=== PATIENT | female | born 1960 | race African-American/Black ===

== ENCOUNTER → 2023-05-24 | Outpatient (CLI) | payer BC ==
[~2023-05-24] VITALS: Ht 172.7 cm; Wt 82.6 kg
[~2023-05-24] MED LIST: ADENOSINE 69 MG in GIVE UN-DILUTED 0 ML IV ONE; ADENOSINE 90 MG/30 ML INJ IV ONE
== END | disposition home or self-care (01) ==
LOC: Rad HDHVI 13:53
PROVIDERS: ATTEND Internal Medicine Cardiovascular Disease
DX: I08.3 Combined rheumatic disorders of mitral, aortic and tricuspid valves (principal); I10 Essential (primary) hypertension; R42 Dizziness and giddiness; I25.2 Old myocardial infarction; I25.10 Atherosclerotic heart disease of native coronary artery without angina pectoris; F17.210 Nicotine dependence, cigarettes, uncomplicated
CPT/HCPCS: 93306; J0153

== ENCOUNTER → 2023-07-26 | Outpatient (CLI) | payer BC ==
[~2023-07-26] MED LIST changes: -ADENOSINE 69 MG in GIVE UN-DILUTED 0 ML IV ONE; -ADENOSINE 90 MG/30 ML INJ IV ONE; +ASPI-543 PO; +DILT1TAB8 PO; +TICA90TA PO; +TRIA75TA55 PO
[2023-07-26 10:00] VITALS: BP 139/65; PULSE 80; RESP 16; O2SAT 92
[2023-07-26 10:20] VITALS: BP 136/65; PULSE 75; RESP 16; O2SAT 92
== END | disposition home or self-care (01) ==
LOC: CHF HDHVI 09:57
PROVIDERS: ATTEND Internal Medicine Cardiovascular Disease
DX: Z01.818 Encounter for other preprocedural examination (principal); R94.31 Abnormal electrocardiogram [ECG] [EKG]; I10 Essential (primary) hypertension; I25.2 Old myocardial infarction; R42 Dizziness and giddiness
CPT/HCPCS: 93005; G0463

== ENCOUNTER 2023-07-28 06:40 | Day surgery (SDC) | payer BC ==
[2023-07-26 12:28] LABS: Basophils # (auto) 0 10 ^3/uL (0-0.2); Basophils % (auto) 0.6 % (0.0-2.0); Eosinophils # (auto) 0.2 10 ^3/uL (0-0.8); Eosinophils % (auto) 3.6 % (0.0-7.0); Hematocrit 40.7 % (36.0-46.0); Hemoglobin 13.8 g/dL (12.2-16.2); Lymphocytes % (auto) 34.3 % (10.0-50.0); Mean Corpuscular Hgb Conc. 33.8 g/dL (32.0-36.0); Mean Corpuscular Volume 100.7 fL (80.0-100.0); Monocytes # (auto) 0.6 10 ^3/uL (0-1.3); Neutrophils % (auto) 51.5 % (37.0-80.0); Red Blood Cells 4.05 10^6/uL (4.0-5.20); Red Cell Distribution Width 11.9 % (11.8-14.3); White Blood Cell 5.8 10^3/uL (4.4-10.8)
[2023-07-26 12:54] LABS: Chloride 100 mmol/L (98-107); Potassium 3.5 mmol/L (3.5-5.1); Sodium 137 mmol/L (136-145)
[2023-07-26 12:55] LABS: Anion Gap 7 (5-15); Calcium 9.5 mg/dL (8.5-10.1); Carbon Dioxide 30 mmol/L (20-30)
[2023-07-26 13:00] LABS: BUN/Creatinine Ratio 11.3 (10.0-20.0); Blood Urea Nitrogen 8 mg/dL (9-23); Glucose 94 mg/dL (74-106)
[2023-07-26 13:07] LABS: INR 0.96 (0.9-1.15); Partial Thromboplastin Time 25.6 SEC (24.5-34.5); Prothrombin Time 10.3 sec (9.3-11.8)
[~2023-07-28] VITALS: Ht 172.7 cm; Wt 82.6 kg
[~2023-07-28 06:40] MED LIST changes: -TICA90TA PO
[2023-07-28] MEDS ORDERED: IODIXANOL 320MG/ML 100ML BTL IV ONE (08:18)
[2023-07-28] MEDS ORDERED: LIDOCAINE 2%HCL (LOCAL ANESTH.) INJ 20ML MDV ONE ×2 (08:18→08:58)
[2023-07-28] MEDS ORDERED: SODIUM CHL 0.9% 50 ML ONE ×2 (08:21→10:02)
[2023-07-28] MEDS ORDERED: ANGIOMAX 250 MG VIAL IV ONE ×2 (08:21→10:02)
[2023-07-28] MEDS ORDERED: fentaNYL CITRATE 100 MCG/2 ML VL ONE (08:21)
[2023-07-28] MEDS ORDERED: MIDAZOLAM HCL 2MG/2ML 2ml VIAL (1mg/ml) ONE ×2 (08:21→10:00)
[2023-07-28] MEDS ORDERED: IOHEXOL 350 MG/ML 100ML IJ ONE ×2 (09:09→09:16)
[2023-07-28] MEDS ORDERED: ATROPINE SULF 1 MG/10ml SYR ONE (09:15)
[2023-07-28] MEDS ORDERED: TICAGRELOR 90 MG TAB ONE (10:10)
[2023-07-28] MEDS ORDERED: TICA90TA PO (11:49)
[2023-07-28] MEDS ORDERED: ONDANSETRON HCL 4 MG/2 ML VIAL ONE (12:36)
[2023-07-28] MEDS ORDERED: ONDANSETRON HCL 4 MG/2 ML VIAL IV ONE (12:45)
== END 2023-07-28 12:53 | disposition home or self-care (01) ==
LOC: CATH 06:40
PROVIDERS: ATTEND Internal Medicine Cardiovascular Disease
DX: R94.39 Abnormal result of other cardiovascular function study (principal); I25.10 Atherosclerotic heart disease of native coronary artery without angina pectoris; I10 Essential (primary) hypertension; I25.2 Old myocardial infarction; F17.210 Nicotine dependence, cigarettes, uncomplicated; Z79.82 Long term (current) use of aspirin; Z79.899 Other long term (current) drug therapy
CPT/HCPCS: 36415; 80048; 85025; 85610; 85730; 93458; 93571; C1724; C1725; C1769; C1874; C1887; C1894; C9600; J0583; J1644; J2250; J2405; J3010; J7030; Q9967; 99152; 99153

== ENCOUNTER 2023-08-08 15:15 | Inpatient (IN) | payer BC ==
[~2023-08-08] VITALS: Ht 172.7 cm; Wt 83.0 kg
[~2023-08-08 15:15] MED LIST changes: +TICA90TA PO
[2023-08-08 21:50] VITALS: BP 99/51; PULSE 70; PULSE 74; RESP 16; RESP 18; TEMP 97.7; O2SAT 97
[2023-08-08] MEDS ORDERED: MORPHINE SULFATE INJ 2 MG/ml SYRG IV PRN (23:30)
[2023-08-08] MEDS ORDERED: NITROGLYCERIN 0.4 MG SL TAB SL PRN (23:30)
[2023-08-09] VITALS (9 sets, daily range): BP systolic 90–100; BP diastolic 34–59; PULSE 70–86; RESP 16–18; TEMP 97.9–98.6; O2SAT 93–100
[2023-08-09] MEDS: SODIUM CHLORIDE 0.9% 1,000 ML IV SCH ×2 (00:13→19:41)
[2023-08-09 00:15] LABS: Basophils # (auto) 0 10 ^3/uL (0-0.2); Basophils % (auto) 0.6 % (0.0-2.0); Eosinophils # (auto) 0.1 10 ^3/uL (0-0.8); Eosinophils % (auto) 1.8 % (0.0-7.0); Hematocrit 30.1 % (36.0-46.0); Hemoglobin 10.3 g/dL (12.2-16.2); Lymphocytes # (auto) 2.2 10 ^3/uL (0.4-5.4); Lymphocytes % (auto) 28.6 % (10.0-50.0); Mean Corpuscular Hemoglobin 32.6 pg (28.0-32.0); Mean Corpuscular Hgb Conc. 34.3 g/dL (32.0-36.0); Mean Corpuscular Volume 94.9 fL (80.0-100.0); Monocytes # (auto) 0.6 10 ^3/uL (0-1.3); Monocytes % (auto) 7.7 % (0.0-12.0); Neutrophils # (auto) 4.8 10 ^3/uL (1.6-8.6); Neutrophils % (auto) 61.3 % (37.0-80.0); Red Blood Cells 3.17 10^6/uL (4.0-5.20); Red Cell Distribution Width 15.3 % (11.8-14.3); White Blood Cell 7.8 10^3/uL (4.4-10.8)
[2023-08-09 00:16] LABS: Chloride 108 mmol/L (98-107); Potassium 3.2 mmol/L (3.5-5.1); Sodium 137 mmol/L (136-145)
[2023-08-09 00:17] LABS: Anion Gap 3 (5-15); Calcium 8.1 mg/dL (8.7-10.4); Carbon Dioxide 26 mmol/L (20-30)
[2023-08-09 00:22] LABS: BUN/Creatinine Ratio 14.8 (10.0-20.0); Blood Urea Nitrogen 8 mg/dL (9-23); Glucose 97 mg/dL (74-106)
[2023-08-09 00:26] LABS: INR 1.05 (0.9-1.15); Partial Thromboplastin Time 23.2 SEC (24.5-34.5)
[2023-08-09 05:45] LABS: Basophils # (auto) 0 10 ^3/uL (0-0.2); Basophils % (auto) 0.6 % (0.0-2.0); Eosinophils # (auto) 0.2 10 ^3/uL (0-0.8); Eosinophils % (auto) 2.3 % (0.0-7.0); Hematocrit 31.7 % (36.0-46.0); Hemoglobin 10.7 g/dL (12.2-16.2); Lymphocytes # (auto) 2.2 10 ^3/uL (0.4-5.4); Lymphocytes % (auto) 30.4 % (10.0-50.0); Mean Corpuscular Hemoglobin 32.5 pg (28.0-32.0); Mean Corpuscular Hgb Conc. 33.7 g/dL (32.0-36.0); Mean Corpuscular Volume 96.4 fL (80.0-100.0); Monocytes # (auto) 0.6 10 ^3/uL (0-1.3); Monocytes % (auto) 8.7 % (0.0-12.0); Neutrophils # (auto) 4.2 10 ^3/uL (1.6-8.6); Nucleated Red Blood Cells % 0.2 %; Red Blood Cells 3.29 10^6/uL (4.0-5.20); White Blood Cell 7.3 10^3/uL (4.4-10.8)
[2023-08-09 06:00] LABS: INR 1.04 (0.9-1.15); Partial Thromboplastin Time 23.9 SEC (24.5-34.5); Prothrombin Time 10.9 sec (9.3-11.8)
[2023-08-09 06:06] LABS: Anion Gap 6 (5-15); Carbon Dioxide 26 mmol/L (20-30); Chloride 107 mmol/L (98-107); Potassium 3.3 mmol/L (3.5-5.1); Sodium 139 mmol/L (136-145)
[2023-08-09 06:07] LABS: Calcium 8.4 mg/dL (8.5-10.1)
[2023-08-09 06:12] LABS: BUN/Creatinine Ratio 9.3 (10.0-20.0); Blood Urea Nitrogen 5 mg/dL (9-23); Glucose 85 mg/dL (74-106)
[2023-08-09] MEDS: PANTOPRAZOLE 40 MG/10 ML VIAL INJ IV SCH (10:31)
[2023-08-09] MEDS: diphenhdrAMINE HCL 25 MG CAP PO PRN (19:28)
[2023-08-10] VITALS (9 sets, daily range): BP systolic 78–107; BP diastolic 41–56; PULSE 68–91; RESP 18–20; TEMP 98–98.2; O2SAT 95–96
[2023-08-10] MEDS: POTASSIUM CHL 20MEQ/100ML 100 ML IV SCH ×2 (00:06→01:57)
[2023-08-10] MEDS: diphenhdrAMINE HCL 25 MG CAP PO PRN (04:31)
[2023-08-10 07:51] LABS: Calcium 8.4 mg/dL (8.5-10.1); Chloride 110 mmol/L (98-107); Potassium 3.9 mmol/L (3.5-5.1); Sodium 140 mmol/L (136-145)
[2023-08-10 07:52] LABS: Anion Gap 5 (5-15); Carbon Dioxide 25 mmol/L (20-30)
[2023-08-10 07:56] LABS: Basophils # (auto) 0 10 ^3/uL (0-0.2); Basophils % (auto) 0.3 % (0.0-2.0); Eosinophils # (auto) 0.2 10 ^3/uL (0-0.8); Eosinophils % (auto) 2.4 % (0.0-7.0); Hematocrit 30.5 % (36.0-46.0); Hemoglobin 10.4 g/dL (12.2-16.2); Lymphocytes # (auto) 1.9 10 ^3/uL (0.4-5.4); Lymphocytes % (auto) 26.4 % (10.0-50.0); Mean Corpuscular Hemoglobin 32.8 pg (28.0-32.0); Mean Corpuscular Hgb Conc. 34.2 g/dL (32.0-36.0); Mean Corpuscular Volume 95.8 fL (80.0-100.0); Monocytes # (auto) 0.4 10 ^3/uL (0-1.3); Monocytes % (auto) 6.3 % (0.0-12.0); Neutrophils # (auto) 4.5 10 ^3/uL (1.6-8.6); Neutrophils % (auto) 64.6 % (37.0-80.0); Nucleated Red Blood Cells % 0.1 %; Red Blood Cells 3.19 10^6/uL (4.0-5.20); Red Cell Distribution Width 14.7 % (11.8-14.3)
[2023-08-10 07:57] LABS: BUN/Creatinine Ratio 11.5 (10.0-20.0); Blood Urea Nitrogen 6 mg/dL (9-23); Glucose 127 mg/dL (74-106)
[2023-08-10] MEDS: PANTOPRAZOLE 40 MG/10 ML VIAL INJ IV SCH (10:00)
[2023-08-10] MEDS: SODIUM CHLORIDE 0.9% 1,000 ML IV SCH (15:30)
[2023-08-10] MEDS: ENOXAPARIN SOD 60 MG/0.6 ML SYRINGE SC SCH (18:31)
[2023-08-11] MEDS: ENOXAPARIN SOD 60 MG/0.6 ML SYRINGE SC SCH ×2 (02:24→16:02)
[2023-08-11 05:21] VITALS: BP 108/51; PULSE 67; RESP 18; TEMP 98; O2SAT 93
[2023-08-11 08:00] VITALS: BP 110/63; PULSE 72; PULSE 76; RESP 18; TEMP 98.7; O2SAT 99
[2023-08-11] MEDS ORDERED: GOLYTELY 4L KIT PO ONE (08:45)
[2023-08-11 09:00] VITALS: BP 110/63; PULSE 72; RESP 18; TEMP 98.7; O2SAT 99
[2023-08-11] MEDS: PANTOPRAZOLE 40 MG/10 ML VIAL INJ IV SCH (09:32)
[2023-08-11] MEDS: SODIUM CHLORIDE 0.9% 1,000 ML IV SCH (11:30)
[2023-08-11 13:00] VITALS: BP 116/45; PULSE 65; RESP 18; TEMP 98.2; O2SAT 100
[2023-08-11] MEDS: diphenhdrAMINE HCL 25 MG CAP PO PRN (18:05)
[2023-08-11 20:00] VITALS: BP 94/41; PULSE 60; PULSE 67; PULSE 71; RESP 18; TEMP 98
[2023-08-11 22:00] VITALS: BP 94/41; PULSE 67; RESP 18; TEMP 98; O2SAT 97
[2023-08-12] VITALS (9 sets, daily range): BP systolic 103–127; BP diastolic 41–53; PULSE 56–74; RESP 17–19; TEMP 97.6–98.6; O2SAT 95–100
[2023-08-12] MEDS: ENOXAPARIN SOD 60 MG/0.6 ML SYRINGE SC SCH ×2 (02:46→14:34)
[2023-08-12] MEDS ORDERED: GOLYTELY 4L KIT PO ONE (06:00)
[2023-08-12] MEDS ORDERED: MAGNESIUM CITRATE SOLUTION 300 ML BTL PO ONE (06:00)
[2023-08-12] MEDS: SODIUM CHLORIDE 0.9% 1,000 ML IV SCH (07:30)
[2023-08-12] MEDS ORDERED: SODIUM CHLORIDE LOCK 10 ML ONE (08:26)
[2023-08-12] MEDS: PANTOPRAZOLE 40 MG/10 ML VIAL INJ IV SCH (10:00)
[2023-08-12] MEDS: fentaNYL CITRATE 100 MCG/2 ML VL ONE ×2 (10:03→10:08)
[2023-08-12] MEDS: diphenhdrAMINE HCL 50 MG/1 ML VL ONE ×2 (10:03→10:04)
[2023-08-12] MEDS: MIDAZOLAM HCL 5 MG/ML-1ML VIAL ONE ×4 (10:03→10:17)
[2023-08-13] MEDS: ENOXAPARIN SOD 60 MG/0.6 ML SYRINGE SC SCH ×2 (02:15→13:36)
[2023-08-13] MEDS: SODIUM CHLORIDE 0.9% 1,000 ML IV SCH (03:30)
[2023-08-13 05:00] VITALS: BP 112/46; PULSE 74; RESP 20; TEMP 98.9; O2SAT 93
[2023-08-13 06:44] LABS: Basophils # (auto) 0 10 ^3/uL (0-0.2); Basophils % (auto) 0.6 % (0.0-2.0); Eosinophils # (auto) 0.1 10 ^3/uL (0-0.8); Eosinophils % (auto) 2.5 % (0.0-7.0); Hematocrit 29.2 % (36.0-46.0); Hemoglobin 9.9 g/dL (12.2-16.2); Lymphocytes # (auto) 1.4 10 ^3/uL (0.4-5.4); Lymphocytes % (auto) 27.8 % (10.0-50.0); Mean Corpuscular Hemoglobin 32.8 pg (28.0-32.0); Mean Corpuscular Hgb Conc. 33.9 g/dL (32.0-36.0); Mean Corpuscular Volume 96.7 fL (80.0-100.0); Monocytes # (auto) 0.4 10 ^3/uL (0-1.3); Monocytes % (auto) 7.8 % (0.0-12.0); Neutrophils % (auto) 61.3 % (37.0-80.0); Nucleated Red Blood Cells % 0.1 %; Red Blood Cells 3.02 10^6/uL (4.0-5.20); Red Cell Distribution Width 14.5 % (11.8-14.3); White Blood Cell 4.9 10^3/uL (4.4-10.8)
[2023-08-13 06:50] LABS: Alanine Aminotransferase 17 U/L (7-40); Alkaline Phosphatase 42 U/L (46-116); Anion Gap 5 (5-15); Calcium 8.3 mg/dL (8.7-10.4); Carbon Dioxide 26 mmol/L (20-30); Chloride 111 mmol/L (98-107); Glucose 82 mg/dL (74-106); Potassium 3.6 mmol/L (3.5-5.1); Sodium 142 mmol/L (136-145)
[2023-08-13 06:51] LABS: Albumin 3.1 g/dL (3.2-4.8); Aspartate Aminotransferase 15 U/L (13-40); Bilirubin, Total 0.4 mg/dL (0.2-1.0); Total Protein 5.4 g/dL (5.7-8.2)
[2023-08-13 06:57] LABS: BUN/Creatinine Ratio 9.8 (10.0-20.0); Blood Urea Nitrogen < 5 mg/dL (9-23)
[2023-08-13 08:00] VITALS: PULSE 73
[2023-08-13 09:00] VITALS: BP 99/39; PULSE 89; RESP 14; TEMP 97.7; O2SAT 94
[2023-08-13] MEDS: PANTOPRAZOLE 40 MG/10 ML VIAL INJ IV SCH (09:46)
[2023-08-13 13:00] VITALS: BP 111/67; PULSE 67; RESP 16; TEMP 98.3; O2SAT 97
[2023-08-13 15:08] VITALS: BP 111/67; PULSE 67; RESP 16; TEMP 98.3; O2SAT 97
[2023-08-13 17:00] VITALS: BP 100/43; PULSE 82; RESP 18; TEMP 98.3; O2SAT 96
== END 2023-08-13 17:33 | disposition home or self-care (01) | DRG 378 ==
LOC: UNDOADMIN 20:38 → TELE-WESTW 20:38
PROVIDERS: ADMIT Internal Medicine Cardiovascular Disease; ATTEND Internal Medicine Cardiovascular Disease
PROC: 0DBN8ZZ Excision of Sigmoid Colon, Via Natural or Artificial Opening Endoscopic (ICD-10-PCS; 2023-08-12)
PROC: 0DBC8ZX Excision of Ileocecal Valve, Via Natural or Artificial Opening Endoscopic, Diagnostic (ICD-10-PCS; principal; 2023-08-12 09:50)
DX: K92.2 Gastrointestinal hemorrhage, unspecified (principal); K55.9 Vascular disorder of intestine, unspecified; J44.9 Chronic obstructive pulmonary disease, unspecified; D64.9 Anemia, unspecified; I25.10 Atherosclerotic heart disease of native coronary artery without angina pectoris; E87.6 Hypokalemia; I10 Essential (primary) hypertension; F17.210 Nicotine dependence, cigarettes, uncomplicated; K63.5 Polyp of colon; I25.2 Old myocardial infarction; Z95.5 Presence of coronary angioplasty implant and graft; Z79.02 Long term (current) use of antithrombotics/antiplatelets
CPT/HCPCS: 36415; 45380; 80048; 80053; 85025; 85610; 85730; 86850; 86900; 86901; 86920; C9113; G0378; J2250; J3480

== ENCOUNTER → 2024-01-25 | Outpatient (CLI) | payer BC | END | disposition home or self-care (01) | LOC: Rad HDHVI 13:00 | PROVIDERS: ATTEND Internal Medicine Cardiovascular Disease | DX: I25.110 Atherosclerotic heart disease of native coronary artery with unstable angina pectoris (principal); I35.1 Nonrheumatic aortic (valve) insufficiency; I25.2 Old myocardial infarction; I42.0 Dilated cardiomyopathy; I10 Essential (primary) hypertension; J44.9 Chronic obstructive pulmonary disease, unspecified; E78.00 Pure hypercholesterolemia, unspecified | CPT/HCPCS: 78452; 93017; 96374; A9500 ==

== ENCOUNTER → 2024-04-16 | Outpatient (CLI) | payer BC ==
[~2024-04-16] MED LIST changes: +CLOP75TA70 PO
[2024-04-16 12:00] VITALS: BP 135/64; PULSE 81; RESP 20; O2SAT 94
[2024-04-16 12:10] VITALS: BP 130/66; PULSE 81; RESP 20; O2SAT 94
== END | disposition home or self-care (01) ==
LOC: Rad HDHVI 11:47
PROVIDERS: ATTEND Internal Medicine Cardiovascular Disease
DX: Z01.818 Encounter for other preprocedural examination (principal)
CPT/HCPCS: 71046; 93005; G0463

== ENCOUNTER 2024-04-19 06:36 | Day surgery (SDC) | payer BC ==
[2024-04-16 14:23] LABS: Chloride 100 mmol/L (98-107); Potassium 3.6 mmol/L (3.5-5.1); Sodium 137 mmol/L (136-145)
[2024-04-16 14:24] LABS: Anion Gap 7 (5-15); Carbon Dioxide 30 mmol/L (20-30)
[2024-04-16 14:25] LABS: Calcium 9.9 mg/dL (8.7-10.4)
[2024-04-16 14:29] LABS: BUN/Creatinine Ratio 11.3 (10.0-20.0); Basophils # (auto) 0 10 ^3/uL (0-0.2); Basophils % (auto) 0.4 % (0.0-2.0); Blood Urea Nitrogen 8 mg/dL (9-23); Eosinophils # (auto) 0.1 10 ^3/uL (0-0.8); Eosinophils % (auto) 1.1 % (0.0-7.0); Glucose 91 mg/dL (74-106); Monocytes # (auto) 0.8 10 ^3/uL (0-1.3); Neutrophils # (auto) 5.9 10 ^3/uL (1.6-8.6); White Blood Cell 8.9 10^3/uL (4.4-10.8)
[2024-04-16 14:31] LABS: Hematocrit 37.6 % (36.0-46.0); Hemoglobin 13.3 g/dL (12.2-16.2); Lymphocytes # (auto) 2.1 10 ^3/uL (0.4-5.4); Lymphocytes % (auto) 23.5 % (10.0-50.0); Mean Corpuscular Hemoglobin 35.5 pg (28.0-32.0); Mean Corpuscular Hgb Conc. 35.5 g/dL (32.0-36.0); Platelet Count (auto) 277 10^3/uL (140-450); Red Blood Cells 3.76 10^6/uL (4.0-5.20); Red Cell Distribution Width 11.9 % (11.8-14.3)
[2024-04-16 14:37] LABS: INR 1.06 (0.9-1.15); Partial Thromboplastin Time 24.8 SEC (24.5-34.5); Prothrombin Time 11.2 sec (9.3-11.8)
[2024-04-19] VITALS (7 sets, daily range): BP systolic 117–141; BP diastolic 49–64; PULSE 65–77; RESP 12–19; O2SAT 93–94
[~2024-04-19] VITALS: Ht 172.7 cm; Wt 74.8 kg
[~2024-04-19 06:36] MED LIST changes: -ASPI-543 PO; -TICA90TA PO
[2024-04-19] MEDS ORDERED: IOHEXOL 350 MG/ML 100ML IJ ONE (09:52)
[2024-04-19] MEDS ORDERED: fentaNYL CITRATE 100 MCG/2 ML VL ONE (10:02)
[2024-04-19] MEDS ORDERED: ANGIOMAX 250 MG VIAL IV ONE (10:02)
[2024-04-19] MEDS ORDERED: SODIUM CHL 0.9% 50 ML ONE (10:03)
[2024-04-19] MEDS ORDERED: LIDOCAINE 2%HCL (LOCAL ANESTH.) INJ 20ML MDV ONE (10:03)
[2024-04-19] MEDS ORDERED: MIDAZOLAM HCL 2MG/2ML 2ml VIAL (1mg/ml) ONE (10:03)
[2024-04-19] MEDS ORDERED: ATROPINE SULF 1 MG/10ml SYR ONE (10:38)
[2024-04-19] MEDS ORDERED: CLOPIDOGREL BISULFATE 75 MG TAB ONE (10:57)
== END 2024-04-19 13:08 | disposition home or self-care (01) ==
LOC: CATH 06:36
PROVIDERS: ATTEND Internal Medicine Cardiovascular Disease
DX: I25.10 Atherosclerotic heart disease of native coronary artery without angina pectoris (principal); I25.84 Coronary atherosclerosis due to calcified coronary lesion; I11.0 Hypertensive heart disease with heart failure; I50.30 Unspecified diastolic (congestive) heart failure; I10 Essential (primary) hypertension; F41.9 Anxiety disorder, unspecified; Z82.49 Family history of ischemic heart disease and other diseases of the circulatory system; Z83.511 Family history of glaucoma
CPT/HCPCS: 36415; 80048; 85025; 85610; 85730; 92920; 93458; C1725; C1760; C1769; C1887; C1894; J0583; J1644; J2250; J3010; Q9967; 99152; 99153

== ENCOUNTER 2024-08-01 14:50 | Inpatient (IN) | payer BC ==
[~2024-08-01] VITALS: Ht 172.7 cm; Wt 64.0 kg
[2024-08-01 17:30] VITALS: PULSE 69; RESP 17; O2SAT 93
[2024-08-01 17:46] VITALS: BP 116/66; PULSE 69; RESP 17; TEMP 98; O2SAT 93
[2024-08-01] MEDS: D5W/SOD CHL 0.45% 1,000 ML IV SCH (18:18)
[2024-08-01 19:59] LABS: Basophils # (auto) 0 10 ^3/uL (0-0.2); Basophils % (auto) 0.5 % (0.0-2.0); Eosinophils # (auto) 0 10 ^3/uL (0-0.8); Eosinophils % (auto) 0.7 % (0.0-7.0); Hematocrit 39.1 % (36.0-46.0); Hemoglobin 13.4 g/dL (12.2-16.2); Lymphocytes # (auto) 1.9 10 ^3/uL (0.4-5.4); Lymphocytes % (auto) 31.2 % (10.0-50.0); Mean Corpuscular Hemoglobin 34.7 pg (28.0-32.0); Mean Corpuscular Hgb Conc. 34.3 g/dL (32.0-36.0); Mean Corpuscular Volume 101.2 fL (80.0-100.0); Monocytes # (auto) 0.6 10 ^3/uL (0-1.3); Neutrophils # (auto) 3.4 10 ^3/uL (1.6-8.6); Neutrophils % (auto) 57.6 % (37.0-80.0); Nucleated Red Blood Cells % 0.2 %; Platelet Count (auto) 189 10^3/uL (140-450); Red Blood Cells 3.87 10^6/uL (4.0-5.20); Red Cell Distribution Width 11.7 % (11.8-14.3); White Blood Cell 5.9 10^3/uL (4.4-10.8)
[2024-08-01 20:26] LABS: Alanine Aminotransferase 15 U/L (7-40); Albumin 3.8 g/dL (3.2-4.8); Alkaline Phosphatase 60 U/L (46-116); Anion Gap 5 (5-15); Aspartate Aminotransferase 18 U/L (13-40); BUN/Creatinine Ratio 13.1 (10.0-20.0); Calcium 9.8 mg/dL (8.7-10.4); Carbon Dioxide 29 mmol/L (20-31); Chloride 103 mmol/L (98-107); Glucose 97 mg/dL (74-106); Sodium 137 mmol/L (136-145)
[2024-08-01 20:27] LABS: Bilirubin, Total 0.9 mg/dL (0.2-1.0)
[2024-08-01 20:28] LABS: Blood Urea Nitrogen 8 mg/dL (9-23); Potassium 3.2 mmol/L (3.5-5.1); Total Protein 6.6 g/dL (5.7-8.2)
[2024-08-01 21:00] VITALS: BP 110/52; PULSE 70; RESP 18; TEMP 98.8; O2SAT 98
[2024-08-02 01:00] VITALS: BP 108/50; PULSE 72; RESP 18; TEMP 98.8; O2SAT 98
[2024-08-02 05:00] VITALS: BP 110/56; PULSE 70; RESP 18; TEMP 98.8; O2SAT 100
[2024-08-02] MEDS: GASTROGRAFIN 30 ML SOL ONE (07:19)
[2024-08-02] MEDS: IOHEXOL 300 MG/ML 100ML BOTTLE IJ ONE (08:13)
[2024-08-02 08:40] VITALS: BP 105/42; PULSE 70; RESP 16; TEMP 98.2; O2SAT 95
[2024-08-02] MEDS: PANTOPRAZOLE 40 MG TAB PO SCH (09:55)
[2024-08-02] MEDS: dilTIAZem 120MG ER CAP PO SCH (09:55)
[2024-08-02] MEDS: TRIAMTERENE/HCTZ 37.5/25 MG CAP/TAB PO SCH (09:55)
[2024-08-02] MEDS ORDERED: PATIENTS OWN MEDICATION PO SCH (10:00)
--- NOTE | 2024-08-02 10:58 | DVH ---
Exam: CT CT ABD PELVIS W CON-ORAL IV History: r/o Small bowel obstruction TECHNIQUE: A digital therapeutic recreation specialist image was obtained. During the uneventful, intravenous administration of c ontrast material, multislice data acquisition was obtained through the abdomen and pelvis. The data s et was subsequently reconstructed into axial images. Images were reviewed on a work station using a c ombination of axial and multiplanar using a variety of window levels and settings. 100 cc of Omnipaqu e 300 contrast was injected intravenously. All CT scans at this medical facility are performed using dose modulation techniques as appropriate t o a performed exam including the following:Automated exposure control was utilized; adjustment of the MA and/or KV according to patient size; and use of iterative reconstruction technique. Radiation Dose Information: CT Dose: CTDI volume is 6 mGy. Dose-length product is 278 mGy*cm Comparison: None FINDINGS: There is mild fatty infiltration of the liver. There is a 1.0 cm left midpole renal cyst. There is no evidence of nephrolithiasis or hydronephrosis . The gallbladder, pancreas, adrenal glands, and spleen appear within normal limits. There is no gross evidence of abdominal lymphadenopathy. There is no free fluid or free air. The stomach grossly appears unremarkable. There is oral contrast in the small bowel loops and in the colon to the level of the splenic flexure. The small bowel loops appear mildly prominent in size jonah uring up to 2.6 cm. There is no obvious transition point identified. The large bowel loops are not di lated. Air intermixed with stool is seen in the distal colon. The abdominal aorta and IVC appear within normal limits. The bladder appears within normal limits the degree of distention. The uterus appears heterogeneous with calcified fibroids. There is no evidence of a pelvic mass or lymphadenopathy. There is no free fluid collection. Mild scarring versus atelectasis in the left lung base. There is no acute osseous abnormality. IMPRESSION: 1. The small bowel loops appear mildly prominent in size measuring up to 2.6 cm in diameter. There is no obvious transition point identified. There are no dilated large bowel loops. There is oral contra st seen in the small bowel loops in the colon to the level of the splenic flexure. 2. Mild fatty infiltration of the liver. 3. Fibroid uterus. HS:Y
--- NOTE | 2024-08-02 12:13 | DVHPN2 ---
Progress Note - Dictate Date Seen: Aug 02, 2024 Medical Necessity Reason Pt with a Central, PICC or Fol: No Subjective PT WITH ACCELERATED WEIGHT LOSS DYSPHAGIA MELENA S/P COLONOSCOPY REPOARTED TO BE NEGATIVE HX OF TOBACCO USE CACHEXIA COPD HTN S/P CT ABD AND PELVIS WITH CONTRAST 1. The small bowel loops appear mildly prominent in size measuring up to 2.6 cm in diameter. There is no obvious transition point identified. There are no dilated large bowel loops. There is oral contrast seen in the small bowel loops in the colon to the level of the splenic flexure. 2. Mild fatty infiltration of the liver. 3. Fibroid uterus. LAB CONSISTENT WITH HYPOKALEMIA WILL PROCEDURE WITH CT OF CHEST WITH CONTRAST vital signs Vital Sign Date Time Temp Pulse Resp B/P (MAP) Pulse Ox O2 Delivery O2 Flow Rate FiO2 08/02/24 09:55 70 105/42 08/02/24 08:40 98.2 16 95 98.2 08/01/24 20:00 Room Air* 0 21 Total Intake and Output 08/01/24 08/01/24 08/02/24 15:00 23:00 07:00 Intake Total 400 ml Balance 400 ml medications Current Medications Medications Dose Ordered Sig/Minal Route Start Time Stop Time Status Last Admin Dose Admin Dextrose/Sodium Chloride 1,000 ml @ 50 mls/hr Q20H IV 08/01/24 18:00 08/01/24 18:18 50 MLS/HR Triamterene/HCTZ 1 cap DAILY PO 08/02/24 10:00 08/02/24 09:55 1 CAP Diltiazem HCl 240 mg DAILY PO 08/02/24 10:00 08/02/24 09:55 240 MG Pantoprazole Sodium 40 mg DAILY PO 08/02/24 10:00 08/02/24 09:55 40 MG laboratory and microbiology Laboratory Tests 08/01/24 19:39 Test 08/01/24 19:39 Range/Units Serum Glucose 97 74-106 mg/dL Problem List ACCELERATED WEIGHT LOSS DYSPHAGIA MELENA S/P COLONOSCOPY REPOARTED TO BE NEGATIVE HX OF TOBACCO USE CACHEXIA COPD HTN S/P CT ABD AND PELVIS WITH CONTRAST 1. The small bowel loops appear mildly prominent in size measuring up to 2.6 cm in diameter. There is no obvious transition point identified. There are no dilated large bowel loops. There is oral contrast seen in the small bowel loops in the colon to the level of the splenic flexure. 2. Mild fatty infiltration of the liver. 3. Fibroid uterus. LAB CONSISTENT WITH HYPOKALEMIA WILL PROCEDURE WITH CT OF CHEST WITH CONTRAST Assessment/Plan CT OF CHEST IV FLUID GI CONSULT START NUTRITION Plan discussed with: Patient OFELIA OCHOA MD Aug 02, 2024 12:13
--- NOTE | 2024-08-02 12:20 | DVHHP2 ---
Admitting Diagnosis: DYSPHAGIA CACHEXIA IN ABILUITY TO EAT History of Present Illness ACCELERATED WEIGHT LOSS DYSPHAGIA MELENA S/P COLONOSCOPY REPORTED TO BE NEGATIVE HX OF TOBACCO USE CACHEXIA COPD HTN HX OF LGI BLEED ISCHEMIC COLITIS HX OF CAD S/P PTCA STENT RCA PTCA OF PDA S/P CT ABD AND PELVIS WITH CONTRAST 1. The small bowel loops appear mildly prominent in size measuring up to 2.6 cm in diameter. There is no obvious transition point identified. There are no dilated large bowel loops. There is oral contrast seen in the small bowel loops in the colon to the level of the splenic flexure. 2. Mild fatty infiltration of the liver. 3. Fibroid uterus. LAB CONSISTENT WITH HYPOKALEMIA WILL PROCEDURE WITH CT OF CHEST WITH CONTRAST PERTINENT MEDICAL HISTORY: Significant for: * Hypertension. * History of myocardial infarction in 2005. * History of angiogram with angioplasty in 2005 and in 2023. * History of tobacco use, smokes approximately 2-4 cigarettes a day. * No diabetes. * No history of renal failure. * No history of heart failure. * She has hyperdynamic contractility by echocardiography and diastolic dysfunction. CURRENT MEDICATIONS: Include diltiazem, Dyazide diuretic, and Plavix. More than likely I would need to titrate up on the calcium channel vijaya because of the hyperdynamic contractility that is contributing to the patient's chest pain and contributing to the patient's hypertension with diastolic dysfunction. HX OF CAD S/P PTCA PDA 04/17 * Left ventricular function shows hyperdynamic contractility with an estimated EF of greater than 65%, diastolic dysfunction. * LVEDP of 8 mmHg. * Left ventricular systolic pressure 144. No gradient across the aortic valve. * A. Left main patent, calcified. * B. Left anterior descending artery, moderate calcification. * C. First diagonal of the LAD severe diffuse disease less than 2 mm in size. * D. Circumflex artery, moderate diffuse disease without any restrictive lesion nondominant vessel. * E. Right coronary artery, previous site of stent placement was patent with moderate diffuse disease; however, the ostium of the posterior descending artery had a 90-95% narrowing with calcification status post balloon angioplasty. Small caliber vessel, not amenable to any further intervention such as shockwave or even a stent placement. Stenting the posterior descending artery would have compromised the posterior marginal branch, which is a larger caliber vessel. Past Medical History FAMILY HISTORY: Negative. SOCIAL HISTORY: As described above. REVIEW OF SYSTEMS: She denies any fever or chills. No melena or hematochezia. No hematemesis or hemoptysis. No hematuria. No history of liver disease. No history of kidney disease at this time. She has mild COPD however. No history of CVA. No seizure disorder. No history of difficulty swallowing. No GI symptomatology. Patient Family History: FH: cancer G8 MOTHER Allergies: Coded Allergies: No Known Drug Allergy (Verified Allergy, Unknown, 05/24/23) Home Meds Reported Medications Clopidogrel Bisulfate (CLOPIDOGREL) 75 Mg Tab, 75 MG PO DAILY for s/p cardiac stents, MG 04/16/24 Diltiazem HCl (Diltiazem HCl ER) 240 Mg Tab, 240 MG PO DAILY for htn 07/26/23 Triamterene & Hydrochlorothiaz (Maxzide) 1 Tab Tab, 1 TAB PO DAILY for htn 07/26/23 Current Medications Current Medications Medications (Trade) Dose Ordered Sig/Minal Route PRN Reason Start Time Stop Time Status Last Admin Dextrose/Sodium Chloride 1,000 ml @ 50 mls/hr Q20H IV 08/01/24 18:00 08/01/24 18:18 Triamterene/HCTZ (Dyazide 37.5/ 25MG Capsule) 1 cap DAILY PO 08/02/24 10:00 08/02/24 09:55 Diltiazem HCl (Cardizem ER Capsule) 240 mg DAILY PO 08/02/24 10:00 08/02/24 09:55 Patient Own Medication 1 DAILY PO 08/02/24 10:00 08/01/24 18:35 DC Pantoprazole Sodium (Protonix Tablet) 40 mg DAILY PO 08/02/24 10:00 08/02/24 09:55 Vital Signs Vital Signs Date Time Temp Pulse Resp B/P (MAP) Pulse Ox O2 Delivery O2 Flow Rate FiO2 08/02/24 09:55 70 105/42 08/02/24 08:40 98.2 16 95 98.2 08/01/24 20:00 Room Air* 0 21 Physical Exam PHYSICAL EXAMINATION: VITAL SIGNS: Blood pressure is 144/72, pulse of 78 and regular, O2 saturation 94% on room air. HEENT: Pupils are reactive. Funduscopic exam shows no AV nicking, no exudates, no papilledema. Sclerae anicteric. Extraocular muscles are intact. Tympanic membranes are negative. Oral mucosa moist. Posterior pharynx without any exudate. NECK: No JVD appreciated. Carotid pulses are 2+ symmetrical. No cervical adenopathy. No supraclavicular adenopathy. Thyroid is within normal limits. PULMONARY: Clear to auscultation. CARDIOVASCULAR: Regular rate without S3 and without S4. PMI is not displaced. ABDOMEN: Soft and nontender. Normal bowel sounds. EXTREMITIES: No edema. However, distal pulses are Doppler only. Results Labs Test 08/01/24 19:39 Range/Units White Blood Count 5.9 4.4-10.8 10^3/uL Red Blood Count 3.87 L 4.0-5.20 10^6/uL Hemoglobin 13.4 12.2-16.2 g/dL Hematocrit 39.1 36.0-46.0 % Mean Corpuscular Volume 101.2 H 80.0-100.0 fL Mean Corpuscular Hemoglobin 34.7 H 28.0-32.0 pg Mean Corpuscular Hemoglobin Concent 34.3 32.0-36.0 g/dL Red Cell Distribution Width 11.7 L 11.8-14.3 % Platelet Count 189 140-450 10^3/uL Mean Platelet Volume 7.3 6.9-10.8 fL Neutrophils (%) (Auto) 57.6 37.0-80.0 % Lymphocytes (%) (Auto) 31.2 10.0-50.0 % Monocytes (%) (Auto) 10.0 0.0-12.0 % Eosinophils (%) (Auto) 0.7 0.0-7.0 % Basophils (%) (Auto) 0.5 0.0-2.0 % Neutrophils # (Auto) 3.4 1.6-8.6 10 ^3/uL Lymphocytes # (Auto) 1.9 0.4-5.4 10 ^3/uL Monocytes # (Auto) 0.6 0-1.3 10 ^3/uL Eosinophils # (Auto) 0 0-0.8 10 ^3/uL Basophils # (Auto) 0 0-0.2 10 ^3/uL Nucleated Red Blood Cells 0.2 % Sodium Level 137 136-145 mmol/L Potassium Level 3.2 L 3.5-5.1 mmol/L Chloride Level 103 98-107 mmol/L Carbon Dioxide Level 29 20-31 mmol/L Anion Gap 5 5-15 Blood Urea Nitrogen 8 L 9-23 mg/dL Creatinine 0.61 0.550-1.02 mg/dL Glomerular Filtration Rate Calc 101 >90 mL/min BUN/Creatinine Ratio 13.1 10.0-20.0 Serum Glucose 97 74-106 mg/dL Calcium Level 9.8 8.7-10.4 mg/dL Total Bilirubin 0.9 0.2-1.0 mg/dL Aspartate Amino Transferase (AST) 18 13-40 U/L Alanine Aminotransferase (ALT) 15 7-40 U/L Alkaline Phosphatase 60 46-116 U/L Total Protein 6.6 5.7-8.2 g/dL Albumin 3.8 3.2-4.8 g/dL Admitting Diagnosis: ACCELERATED WEIGHT LOSS DYSPHAGIA MELENA S/P COLONOSCOPY REPORTED TO BE NEGATIVE HX OF TOBACCO USE CACHEXIA COPD HTN HX OF LGI BLEED ISCHEMIC COLITIS HX OF CAD S/P PTCA STENT RCA PTCA OF PDA S/P CT ABD AND PELVIS WITH CONTRAST 1. The small bowel loops appear mildly prominent in size measuring up to 2.6 cm in diameter. There is no obvious transition point identified. There are no dilated large bowel loops. There is oral contrast seen in the small bowel loops in the colon to the level of the splenic flexure. 2. Mild fatty infiltration of the liver. 3. Fibroid uterus. LAB CONSISTENT WITH HYPOKALEMIA WILL PROCEDURE WITH CT OF CHEST WITH CONTRAST PERTINENT MEDICAL HISTORY: Significant for: * Hypertension. * History of myocardial infarction in 2005. * History of angiogram with angioplasty in 2005 and in 2023. * History of tobacco use, smokes approximately 2-4 cigarettes a day. * No diabetes. * No history of renal failure. * No history of heart failure. * She has hyperdynamic contractility by echocardiography and diastolic dysfunction. Plan GI CONSULT FOR EGD CT OF CHEST WITH CONTRAST Plan discussed with: Patient OFELIA OCHOA MD Aug 02, 2024 12:20
[2024-08-02 12:33] VITALS: BP 124/59; PULSE 66; RESP 18; TEMP 98.7; O2SAT 97
--- NOTE | 2024-08-02 13:22 | DVHINCON2 ---
GI Consult Consult Note GI consult note Date of Consultation:08/02/2024 Chief Complaint:SBO Referring Physician:Dr Gould H&P: 63-year-old female admitted for possible small bowel obstruction Patient has history of abdominal pain after eating food, which started about one year ago Patient status post colonoscopy one year ago, within normal limits per patient Patient admits to regular bowel movements, no melena or red blood in stool Patient has nausea vomiting, occasional discomfort with swallowing. No hematemesis Patient has about 100 lb weight loss in one year No EGD in past. Patient is treated with Plavix last dosage this morning Patient positive for cigarette smoking Past Medical History: HTN, CAD Past Surgical History: PTCA Social History: + smoking, no drinking ETOH and use of illegal drugs. Family History: Noncontributory Review of Systems: Constitutional: no fever, chill, weight loss HEENT: no eye pain, no hearing loss, no oral lesion, no scleral icterus Heart: no chest pain, no chest pressure Lung: no cough, no dyspnea with exertion Abdomen: see HPI Physical exam: General: NAD, AAOX3 Chest: lung givens clear to auscultation Heart: RRR, no murmur Abdomen: non-distended, no tenderness to palpation, +BS Labs: Labs Test 08/01/24 19:39 Range/Units White Blood Count 5.9 4.4-10.8 10^3/uL Red Blood Count 3.87 L 4.0-5.20 10^6/uL Hemoglobin 13.4 12.2-16.2 g/dL Hematocrit 39.1 36.0-46.0 % Mean Corpuscular Volume 101.2 H 80.0-100.0 fL Mean Corpuscular Hemoglobin 34.7 H 28.0-32.0 pg Mean Corpuscular Hemoglobin Concent 34.3 32.0-36.0 g/dL Red Cell Distribution Width 11.7 L 11.8-14.3 % Platelet Count 189 140-450 10^3/uL Mean Platelet Volume 7.3 6.9-10.8 fL Neutrophils (%) (Auto) 57.6 37.0-80.0 % Lymphocytes (%) (Auto) 31.2 10.0-50.0 % Monocytes (%) (Auto) 10.0 0.0-12.0 % Eosinophils (%) (Auto) 0.7 0.0-7.0 % Basophils (%) (Auto) 0.5 0.0-2.0 % Neutrophils # (Auto) 3.4 1.6-8.6 10 ^3/uL Lymphocytes # (Auto) 1.9 0.4-5.4 10 ^3/uL Monocytes # (Auto) 0.6 0-1.3 10 ^3/uL Eosinophils # (Auto) 0 0-0.8 10 ^3/uL Basophils # (Auto) 0 0-0.2 10 ^3/uL Nucleated Red Blood Cells 0.2 % Sodium Level 137 136-145 mmol/L Potassium Level 3.2 L 3.5-5.1 mmol/L Chloride Level 103 98-107 mmol/L Carbon Dioxide Level 29 20-31 mmol/L Anion Gap 5 5-15 Blood Urea Nitrogen 8 L 9-23 mg/dL Creatinine 0.61 0.550-1.02 mg/dL Glomerular Filtration Rate Calc 101 >90 mL/min BUN/Creatinine Ratio 13.1 10.0-20.0 Serum Glucose 97 74-106 mg/dL Calcium Level 9.8 8.7-10.4 mg/dL Total Bilirubin 0.9 0.2-1.0 mg/dL Aspartate Amino Transferase (AST) 18 13-40 U/L Alanine Aminotransferase (ALT) 15 7-40 U/L Alkaline Phosphatase 60 46-116 U/L Total Protein 6.6 5.7-8.2 g/dL Albumin 3.8 3.2-4.8 g/dL Imaging: CT abdomen pelvis IMPRESSION: 1. The small bowel loops appear mildly prominent in size measuring up to 2.6 cm in diameter. There is no obvious transition point identified. There are no dilated large bowel loops. There is oral contrast seen in the small bowel loops in the colon to the level of the splenic flexure. 2. Mild fatty infiltration of the liver. 3. Fibroid uterus. Assessment: Nausea vomiting Dysphagia Weight loss Plan: Discussed c Dr Roselyn Olvera protonix clear liq diet NPO after clear liquid breakfast tomorrow Hold Plavix Possible plan for EGD tomorrow Discussed plan with patient and RN Thank you for this consult Date of Service: Aug 02, 2024 Billing Provider: KIRSTIE NIETO Common Visit Codes: CONSULT ONLY Consultation Codes: [id number] CONSULT <60MIN KIRSTIE NIETO Aug 02, 2024 13:22
--- NOTE | 2024-08-02 13:22 | DVH ---
Date: 08/02/2024 12:50 PM Examination: XY KUB ABDOMEN SINGLE VIEW History: SBO Comparison: None TECHNIQUE: Frontal views of the abdomen was obtained. FINDINGS: Bowel gas pattern is unremarkable. The lung bases are unremarkable. No acute osseous abnormality identified. IMPRESSION: Nonobstructive bowel gas pattern. Contrast seen within the colon.
[2024-08-02 16:27] VITALS: BP 102/47; PULSE 65; RESP 15; TEMP 98; O2SAT 97
[2024-08-02] MEDS: Ensure HIGH Protein Vanilla 8oz Bottle PO SCH (18:00)
[2024-08-02 21:00] VITALS: BP 110/56; PULSE 68; RESP 18; TEMP 98.8; O2SAT 98
[2024-08-03] VITALS (7 sets, daily range): BP systolic 106–118; BP diastolic 57–73; PULSE 60–82; RESP 14–19; TEMP 97.8–98.3; O2SAT 95–100
[2024-08-03] MEDS ORDERED: SODIUM CHLORIDE LOCK 10 ML ONE (08:32)
[2024-08-03 09:02] LABS: % Iron Saturation 22.8 % (15-50)
[2024-08-03] MEDS: LIDOCAINE VISCOUS 2% 15ML UD ONE (09:06)
[2024-08-03] MEDS: fentaNYL CITRATE 100 MCG/2 ML VL ONE (09:09)
[2024-08-03] MEDS: MIDAZOLAM HCL 5 MG/ML-1ML VIAL ONE (09:09)
[2024-08-03] MEDS: diphenhdrAMINE HCL 50 MG/1 ML VL ONE (09:09)
--- NOTE | 2024-08-03 09:36 | DVHOP2 ---
Operative Report DATE OF OPERATION: 08/03/24 PROCEDURE: Upper Endoscopy with biopsy. PREOPERATIVE INDICATION: The patient is a 63 -year-old female undergoing endoscopy for for nausea vomiting weight loss abdominal pain POSTOPERATIVE DIAGNOSES: 1. Mild gastritis involving the antrum and body of the stomach 2. Mild gastropathy involving the proximal stomach otherwise normal examination up to the 2nd and 3rd part of the duodenum PROCEDURE PERFORMED BY: Jill Olvera GI NURSE: Morena SCOPE: Olympus videoendoscope. ASA CLASS: 2. PREOPERATIVE MEDICATIONS: Versed 5 mg, Fentanyl 100 mcg, Benadryl 50 mg I administered moderate sedation throughout this _8_ minutes procedure. An independent trained observer pushed medications at my direction, and monitored the patient's level of consciousness and physiological status throughout. PROCEDURE IN DETAIL: After obtaining an informed consent, the patient was placed on left lateral decubitus position. The patient was then sedated with the above medications. A bite block was placed between her teeth. The endoscope was then passed through the oropharynx, into the esophagus, and through the stomach and pylorus up to the second and third part of the duodenum. The endoscope was then withdrawn. The 2nd and 3rd part of the duodenal and the duodenal bulb were normal. Duodenal biopsies were obtained There was good bile drainage. The pre-pyloric area and antrum showed mild jaelyn ritis. On retroflexion the patient had mild gastropathy of the proximal stomach. Gastric biopsies were obtained. The endoscope was then withdrawn into the distal esophagus where she had a slightly irregular squamocolumnar junction but no significant esophagitis and no hiatal hernia .The remaining distal and proximal esophagus and oropharynx were unremarkable. The patient tolerated the procedure well without difficulty. COMPLICATIONS : None SPECIMENS: Duodenal biopsies Gastric biopsies DISPOSITION: Transfer back to the floor Stable PLAN: 1. Await for biopsy result 2. Will place pt on Protonix 40 mg p.o. daily 3. Carafate 1 g p.o. twice a day 4. Resume full liquid diet advance as tolerated 5. Outpatient follow up with me in 4-6 weeks to review results and discuss further management JILL OLVERA MD Aug 03, 2024 09:36
--- NOTE | 2024-08-03 15:03 | DVHPN2 ---
Progress Note - Dictate Date Seen: Aug 03, 2024 Medical Necessity Reason Pt with a Central, PICC or Fol: No Subjective PT WITH ACCELERATED WEIGHT LOSS DYSPHAGIA MELENA S/P COLONOSCOPY REPOARTED TO BE NEGATIVE HX OF TOBACCO USE CACHEXIA COPD HTN S/P CT ABD AND PELVIS WITH CONTRAST 1. The small bowel loops appear mildly prominent in size measuring up to 2.6 cm in diameter. There is no obvious transition point identified. There are no dilated large bowel loops. There is oral contrast seen in the small bowel loops in the colon to the level of the splenic flexure. 2. Mild fatty infiltration of the liver. 3. Fibroid uterus. LAB CONSISTENT WITH HYPOKALEMIA WILL PROCEDURE WITH CT OF CHEST WITH CONTRAST vital signs Vital Sign Date Time Temp Pulse Resp B/P (MAP) Pulse Ox O2 Delivery O2 Flow Rate FiO2 08/03/24 13:00 98.3 60 14 118/73 (88) 96 98.3 08/03/24 09:21 Nasal Cannula 3.0 08/03/24 09:21 100 Total Intake and Output 08/02/24 08/02/24 08/03/24 15:00 23:00 07:00 Intake Total 300 ml 300 ml Balance 300 ml 300 ml medications Current Medications Medications Dose Ordered Sig/Minal Route Start Time Stop Time Status Last Admin Dose Admin Dextrose/Sodium Chloride 1,000 ml @ 50 mls/hr Q20H IV 08/01/24 18:00 08/03/24 10:02 50 MLS/HR Triamterene/HCTZ 1 cap DAILY PO 08/02/24 10:00 08/03/24 10:03 1 CAP Diltiazem HCl 240 mg DAILY PO 08/02/24 10:00 08/03/24 10:03 240 MG Pantoprazole Sodium 40 mg DAILY PO 08/02/24 10:00 08/03/24 10:03 40 MG Enteral Nutritional Formula 240 ml TIDWM PO 08/02/24 18:00 08/03/24 12:00 240 ML Sucralfate 1 gm BID@0600,2200 GT 08/03/24 22:00 laboratory and microbiology Laboratory Tests 08/01/24 19:39 Test 08/01/24 19:39 Range/Units Serum Glucose 97 74-106 mg/dL Problem List ACCELERATED WEIGHT LOSS DYSPHAGIA MELENA S/P COLONOSCOPY REPOARTED TO BE NEGATIVE HX OF TOBACCO USE CACHEXIA COPD HTN S/P CT ABD AND PELVIS WITH CONTRAST 1. The small bowel loops appear mildly prominent in size measuring up to 2.6 cm in diameter. There is no obvious transition point identified. There are no dilated large bowel loops. There is oral contrast seen in the small bowel loops in the colon to the level of the splenic flexure. 2. Mild fatty infiltration of the liver. 3. Fibroid uterus. LAB CONSISTENT WITH HYPOKALEMIA WILL PROCEDURE WITH CT OF CHEST WITH CONTRAST Assessment/Plan CT OF CHEST IV FLUID GI CONSULT START NUTRITION EGD NEGATIVE FOR MALIGNANCY GASTROPARESIS Plan discussed with: Patient Critical Care Time(min): 35 OFELIA OCHOA MD Aug 03, 2024 15:03
--- NOTE | 2024-08-03 15:05 | DVHDS2 ---
Discharge Summary Date of Admission Aug 01, 2024 at 15:55 Date of Discharge: Aug 03, 2024 Admitting Diagnosis CACHEXIA DYSPHAGIA Labs/Diagnostic Data: Laboratory Results Test 08/03/24 08:13 08/01/24 19:39 Iron Level 70 ug/dL (50-170) Total Iron Binding Capacity 307 ug/dL (250-425) Percent Iron Saturation 22.8 % (15-50) Vitamin B12 Level 869 pg/mL (211-911) White Blood Count 5.9 10^3/uL (4.4-10.8) Red Blood Count 3.87 10^6/uL (4.0-5.20) Hemoglobin 13.4 g/dL (12.2-16.2) Hematocrit 39.1 % (36.0-46.0) Mean Corpuscular Volume 101.2 fL (80.0-100.0) Mean Corpuscular Hemoglobin 34.7 pg (28.0-32.0) Mean Corpuscular Hemoglobin Concent 34.3 g/dL (32.0-36.0) Red Cell Distribution Width 11.7 % (11.8-14.3) Platelet Count 189 10^3/uL (140-450) Mean Platelet Volume 7.3 fL (6.9-10.8) Neutrophils (%) (Auto) 57.6 % (37.0-80.0) Lymphocytes (%) (Auto) 31.2 % (10.0-50.0) Monocytes (%) (Auto) 10.0 % (0.0-12.0) Eosinophils (%) (Auto) 0.7 % (0.0-7.0) Basophils (%) (Auto) 0.5 % (0.0-2.0) Neutrophils # (Auto) 3.4 10 ^3/uL (1.6-8.6) Lymphocytes # (Auto) 1.9 10 ^3/uL (0.4-5.4) Monocytes # (Auto) 0.6 10 ^3/uL (0-1.3) Eosinophils # (Auto) 0 10 ^3/uL (0-0.8) Basophils # (Auto) 0 10 ^3/uL (0-0.2) Nucleated Red Blood Cells 0.2 % Sodium Level 137 mmol/L (136-145) Potassium Level 3.2 mmol/L (3.5-5.1) Chloride Level 103 mmol/L (98-107) Carbon Dioxide Level 29 mmol/L (20-31) Anion Gap 5 (5-15) Blood Urea Nitrogen 8 mg/dL (9-23) Creatinine 0.61 mg/dL (0.550-1.02) Glomerular Filtration Rate Calc 101 mL/min (>90) BUN/Creatinine Ratio 13.1 (10.0-20.0) Serum Glucose 97 mg/dL (74-106) Calcium Level 9.8 mg/dL (8.7-10.4) Total Bilirubin 0.9 mg/dL (0.2-1.0) Aspartate Amino Transferase (AST) 18 U/L (13-40) Alanine Aminotransferase (ALT) 15 U/L (7-40) Alkaline Phosphatase 60 U/L (46-116) Total Protein 6.6 g/dL (5.7-8.2) Albumin 3.8 g/dL (3.2-4.8) Other Laboratory Tests 08/01/24 19:39 Brief Hx & Hospital Course: ACCELERATED WEIGHT LOSS DYSPHAGIA MELENA S/P COLONOSCOPY REPOARTED TO BE NEGATIVE HX OF TOBACCO USE CACHEXIA COPD HTN S/P CT ABD AND PELVIS WITH CONTRAST 1. The small bowel loops appear mildly prominent in size measuring up to 2.6 cm in diameter. There is no obvious transition point identified. There are no dilated large bowel loops. There is oral contrast seen in the small bowel loops in the colon to the level of the splenic flexure. 2. Mild fatty infiltration of the liver. 3. Fibroid uterus. LAB CONSISTENT WITH HYPOKALEMIA WILL PROCEDURE WITH CT OF CHEST WITH CONTRAST Assessment/Plan CT OF CHEST IV FLUID GI CONSULT START NUTRITION EGD NEGATIVE FOR MALIGNANCY GASTROPARESIS Consults/Reason for consult GI Operations or Procedures EGD Condition at Discharge: Guarded Final Diagnosis/Problems List GASTROPARESIS GASTRITIS SEVERE CACHEXIA COPD HTN Discharge Disposition: Home Discharge Instruct/Medications Diet: Cardiac 2g Na,low cholest Follow Up/Referral: 1 WEEK Discharge Statement: "Patient was advised to return to the ER or call 911 if any headaches, dizziness, shortness of breath, chest pain, abdominal pain, bleeding, fevers, or worsening of medical condition. Patient was counseled about treatment plan, medications, possible side effects, patientverbalized understanding. All questions were answered to the best of my ability. This discharge took greater then 30 minutes in planning, reviewing documentation, counseling the patient, and discussing with other team members." ASSESSMENT ASSESSMENT Assessment OFELIA OCHOA MD Aug 03, 2024 15:05
[2024-08-03] MEDS ORDERED: SUCRALFATE 1 GM/10 ML ORAL SUSP GT SCH (22:00)
== END 2024-08-03 16:20 | disposition home or self-care (01) | DRG 378 ==
LOC: WEST WING 15:55
PROVIDERS: ADMIT Internal Medicine Cardiovascular Disease; ATTEND Internal Medicine Cardiovascular Disease
PROC: 0DB68ZX Excision of Stomach, Via Natural or Artificial Opening Endoscopic, Diagnostic (ICD-10-PCS; 2024-08-03)
PROC: 0DB98ZX Excision of Duodenum, Via Natural or Artificial Opening Endoscopic, Diagnostic (ICD-10-PCS; principal; 2024-08-03 08:58)
DX: K29.71 Gastritis, unspecified, with bleeding (principal); R64 Cachexia; R13.10 Dysphagia, unspecified; I10 Essential (primary) hypertension; J44.9 Chronic obstructive pulmonary disease, unspecified; I25.10 Atherosclerotic heart disease of native coronary artery without angina pectoris; K31.84 Gastroparesis; Z98.61 Coronary angioplasty status; I25.2 Old myocardial infarction; Z79.899 Other long term (current) drug therapy; Z68.21 Body mass index [BMI] 21.0-21.9, adult
CPT/HCPCS: 36415; 43239; 74018; 74177; 80053; 82607; 83540; 83550; 85025; G0378; J2250

== ENCOUNTER 2024-11-07 11:35 | Inpatient (IN) | payer BC ==
[~2024-11-07] VITALS: Ht 170.2 cm; Wt 56.0 kg
--- NOTE | 2024-11-07 11:59 | ED.PDOC ---
HPI Comments 64-year-old female who comes in with chest pain. The patient was stating that the chest pain is substernal in nature. There is some mild shortness for breath and she states that the chest pain increases with respiration. The chest pain is nonradiating and associated with some nausea. At this time the patient states that the pain is an 8/10. There has been no fever or chills. She states that the pain is sharp in nature. She has had an OR in the past and states that the chest pain is not similar to her OR in the past. Chief Complaint: Chest Pain Time Seen by MD: 11:43 Reviewed Notes: Nurses Notes, Medications, Allergies (No allergies to medications) Allergies: Coded Allergies: No Known Drug Allergy (Verified Allergy, Unknown, 05/24/23) Home Meds Reported Medications Clopidogrel Bisulfate (CLOPIDOGREL) 75 Mg Tab, 75 MG PO DAILY for s/p cardiac stents, MG 04/16/24 Diltiazem HCl (Diltiazem HCl ER) 240 Mg Tab, 240 MG PO DAILY for htn 07/26/23 Triamterene & Hydrochlorothiaz (Maxzide) 1 Tab Tab, 1 TAB PO DAILY for htn 07/26/23 Information Source: Patient Mode of Arrival: Ambulatory Severity: Moderate Timing: Hours Duration: Since onset Prehospital treatment: None Location: Substernal Radiation: No Radiation Quality: Sharp Onset: At Rest Cardiac Risk Factors: Smoker, Family History, HTN PE Risk Factors: None History of: Similar pain in past, OR Modifying Factors: Breathing, Movement Associated Signs and Symptoms: SOB, N/V (Nausea but no vomiting) Past Medical History PAST MEDICAL HISTORY: HTN, OR, PUD Surgical History: Surgical History (Other): Cataract surgery VAMP LINER History: No Pertinent VAMP LINER History Family History Family History: Family hx of heart annemarie Social History Smoker: Cigarettes Alcohol: Occasionally Drugs: Denies Drug Use Lives In: Home Constitutional: reports: weakness; denies: chills, diaphoresis, fatigue, fever, malaise, sweats, others EENTM: denies: blurred vision, double vision, ear bleeding, ear discharge, ear drainage, ear pain, ear ringing, eye pain, eye redness, hearing loss, mouth pain, mouth swelling, nasal discharge, nose bleeding, nose congestion, nose pain , photophobia, tearing, throat pain, throat swelling, voice changes, others Respiratory: reports: shortness of breath; denies: cough, hemoptysis, orthopnea, SOB at rest, SOB with excertion, stridor, wheezing, others Cardiovascular: reports: chest pain; denies: dizzy spells, diaphoresis, Dyspnea on exertion, edema, irregular heart beat, left arm pain, lightheadedness, palpitations, PND, syncope, others Gastrointestinal: reports: nausea; denies: abdomen distended, abdominal pain, blood streaked bowels, constipated, diarrhea, dysphagia, difficulty swallowing, hematemesis, melena, poor appetite, poor fluid intake, rectal bleeding, rectal pain, vomiting, others Genitourinary: denies: abnormal vagina bleeding, burning, dyspareunia, dysuria, flank pain, frequency, hematuria, incontinence, pain, , vagina discharge, urgency, others Neurological: denies: dizziness, fainting, headache, left sided numbness, left sided weakness, numbness, paresthesia, pre-existing deficit, right sided numbness, right sided weakness, seizure, speech problems, tingling, tremors, weakness, others Musculoskeletal: denies: back pain, gout, joint pain, joint swelling, muscle pain, muscle stiffness, neck pain, others Integumetry: denies: bruises, change in color, change in hair/nails, dryness, laceration, lesions, lumps, rash, wounds, others Allergic/Immunocompromised: denies: Difficulty Healing, Frequent Infections, Hives, Itching, others Hematologic/Lymphatic: denies: anemia, blood clots, easy bleeding, easy bruising, swollen glands, others Endocrine: denies: excessive hunger, excessive sweating, excessive thirst, excessive urination, flushing, intolerance to cold, intolerance to heat, unexplained weight gain, unexplained weight loss, others Psychiatric: denies: anxiety, bipolar disorder, depression, hopeless, panic disorder, schizophrenia, sleepless, suicidal, others Physical Exam General Appearance: Mild Distress, Thin HEENT: Normal ENT Inspection, Pharynx Normal, TMs Normal Neck: Full Range of Motion, Non-Tender, Normal, Normal Inspection Respiratory: Chest Non-Tender, Lungs Clear, No Accessory Muscle Use, No Respiratory Distress, Normal Breath Sounds Cardiovascular: No Edema, No JVD, No Murmur, No Gallop, Normal Peripheral Pulses, Regular Rate/Rhythm Breast Exam: Deferred Gastrointestinal: No Organomegaly, Non Tender, No Pulsatile Mass, Normal Bowel Sounds, Soft Genitalia: Deferred Pelvic: Deferred Rectal: Deferred Extremities: No calf tenderness, Normal capillary refill, Normal inspection, Normal range of motion, Non-tender, No pedal edema Musculoskeletal : Apperance: Normal Neurologic: Alert, coating supervisor II-XII nml as Tested, No Motor Deficits, Normal Affect, Normal Mood, No Sensory Deficits Cerebellar Function: Normal Reflexes: Normal Skin: Dry, Normal Color, Warm Lymphatic: No Adenopathy EKG EKG : Pulse Rate (adult): 99 [place]: Normal Cardiac Rhythm: NSR Block: None ST: Nonsp Was a procedure done? Was a procedure done?: No CP Differential Dx Differential Diagnosis: Angina, OR, Pulmonary Embolus Differential Diagnosis: CHF Differential Diagnosis: Pericarditis X-Ray, Labs, Meds, VS Vital Signs Date Time Temp Pulse Resp B/P (MAP) Pulse Ox O2 Delivery O2 Flow Rate FiO2 11/07/24 13:04 98.4 100 20 99/63 (75) 95 98.4 11/07/24 12:33 103 11/07/24 11:59 99 11/07/24 11:54 99 11/07/24 11:47 98.5 94 24 112/50 (70) 98 98.5 Lab Test 11/07/24 13:03 11/07/24 12:02 Range/Units Troponin I High Sensitivity 12 11 </=34 ng/L White Blood Count 6.2 4.4-10.8 10^3/uL Red Blood Count 4.25 4.0-5.20 10^6/uL Hemoglobin 14.8 12.2-16.2 g/dL Hematocrit 43.8 36.0-46.0 % Mean Corpuscular Volume 103.1 H 80.0-100.0 fL Mean Corpuscular Hemoglobin 34.8 H 28.0-32.0 pg Mean Corpuscular Hemoglobin Concent 33.7 32.0-36.0 g/dL Red Cell Distribution Width 13.9 11.8-14.3 % Platelet Count 398 140-450 10^3/uL Mean Platelet Volume 6.5 L 6.9-10.8 fL Neutrophils (%) (Auto) 61.3 37.0-80.0 % Lymphocytes (%) (Auto) 29.4 10.0-50.0 % Monocytes (%) (Auto) 8.3 0.0-12.0 % Eosinophils (%) (Auto) 0.2 0.0-7.0 % Basophils (%) (Auto) 0.8 0.0-2.0 % Neutrophils # (Auto) 3.8 1.6-8.6 10 ^3/uL Lymphocytes # (Auto) 1.8 0.4-5.4 10 ^3/uL Monocytes # (Auto) 0.5 0-1.3 10 ^3/uL Eosinophils # (Auto) 0 0-0.8 10 ^3/uL Basophils # (Auto) 0.1 0-0.2 10 ^3/uL Nucleated Red Blood Cells 0.2 % D-Dimer, Quantitative 3.28 H 0.0-0.49 mg/L FEU Sodium Level 135 L 136-145 mmol/L Potassium Level 3.0 L 3.5-5.1 mmol/L Chloride Level 93 L 98-107 mmol/L Carbon Dioxide Level 35 H 20-31 mmol/L Anion Gap 7 5-15 Blood Urea Nitrogen 5 L 9-23 mg/dL Creatinine 0.64 0.550-1.02 mg/dL Glomerular Filtration Rate Calc 99 >90 mL/min BUN/Creatinine Ratio 7.8 L 10.0-20.0 Serum Glucose 94 74-106 mg/dL Calcium Level 10.3 8.7-10.4 mg/dL B-Type Natriuretic Peptide 47.23 0-100 pg/mL Current Medications Medications (Trade) Dose Ordered Sig/Minal Route Start Time Stop Time Status Last Admin Aspirin 162 mg ONCE ONCE PO 11/07/24 12:00 11/07/24 12:01 DC 11/07/24 13:29 IV Hep-Lock was established. The patient was given aspirin here in the emergency department's The patient was given aspirin here in the emergency department's The patient's CBC and chemistry panel are within normal limits The D-dimer is elevated at 3.28 The patient's potassium is also decreased at 3.0 in the chloride is 93 The troponin level x2 is negative At this time the patient was being admitted to Dr. Gould this is the patient's primary care doctor so he was seen the patient was this time Chest x-ray is negative Images Reviewed?: Images reviewed and evaluated by me Time of 1ST Reevaluation: 11:59 Reevaluation 1ST: Unchanged Patient Education/Counseling: Diagnosis, Treatment, Prognosis Family Education/Counseling: No Family Present Departure 1 Departure Time of Disposition: 16:28 Impression: Primary Impression: Acute chest pain Additional Impressions: Unexplained weight loss Hypokalemia Disposition: 09 ADMITTED INPATIENT Admit to: Tele Condition: Fair Critical Care Note Critical Care Time?: Yes (35 min-critical care time only) Stability Stability form required: Yes Unstable for transfer: Telemetry monitoring (Telemetry monitoring required), ED Physician Assesment (Clinical assesment) Heart Score Heart Score: Heart Score Response (Comments) Value History Moderate Suspicious 1 EKG Repolarization Disturb 1 Age 45-64 1 Risk Factors >3 or Hx ASHD 2 Troponin Normal limit 0 Total 5 DE TORREZ MD Nov 07, 2024 11:59
[2024-11-07 12:11] LABS: Basophils # (auto) 0.1 10 ^3/uL (0-0.2); Basophils % (auto) 0.8 % (0.0-2.0); Eosinophils # (auto) 0 10 ^3/uL (0-0.8); Eosinophils % (auto) 0.2 % (0.0-7.0); Hematocrit 43.8 % (36.0-46.0); Hemoglobin 14.8 g/dL (12.2-16.2); Lymphocytes # (auto) 1.8 10 ^3/uL (0.4-5.4); Lymphocytes % (auto) 29.4 % (10.0-50.0); Mean Corpuscular Hemoglobin 34.8 pg (28.0-32.0); Mean Corpuscular Hgb Conc. 33.7 g/dL (32.0-36.0); Mean Corpuscular Volume 103.1 fL (80.0-100.0); Monocytes # (auto) 0.5 10 ^3/uL (0-1.3); Monocytes % (auto) 8.3 % (0.0-12.0); Neutrophils # (auto) 3.8 10 ^3/uL (1.6-8.6); Neutrophils % (auto) 61.3 % (37.0-80.0); Nucleated Red Blood Cells % 0.2 %; Platelet Count (auto) 398 10^3/uL (140-450); Red Blood Cells 4.25 10^6/uL (4.0-5.20); Red Cell Distribution Width 13.9 % (11.8-14.3); White Blood Cell 6.2 10^3/uL (4.4-10.8)
[2024-11-07 12:20] LABS: Anion Gap 7 (5-15); Calcium 10.3 mg/dL (8.7-10.4)
[2024-11-07 12:25] LABS: BUN/Creatinine Ratio 7.8 (10.0-20.0); Glucose 94 mg/dL (74-106)
[2024-11-07 12:26] LABS: Blood Urea Nitrogen 5 mg/dL (9-23); Carbon Dioxide 35 mmol/L (20-31); Chloride 93 mmol/L (98-107); Sodium 135 mmol/L (136-145)
[2024-11-07] MEDS ORDERED: NITROGLYCERIN 0.4 MG SL TAB SL PRN (13:15)
[2024-11-07] MEDS ORDERED: TPN PER PHARMACY 0 ML IV SCH (13:15)
--- NOTE | 2024-11-07 13:17 | DVHHP2 ---
Admitting Diagnosis: CHEST PAIN/ CACHEXIA History of Present Illness ACCELERATED WEIGHT LOSS DYSPHAGIA MELENA S/P COLONOSCOPY REPORTED TO BE NEGATIVE HX OF TOBACCO USE CACHEXIA COPD HTN HX OF LGI BLEED ISCHEMIC COLITIS HX OF CAD S/P PTCA STENT RCA PTCA OF PDA S/P CT ABD AND PELVIS WITH CONTRAST 1. The small bowel loops appear mildly prominent in size measuring up to 2.6 cm in diameter. There is no obvious transition point identified. There are no dilated large bowel loops. There is oral contrast seen in the small bowel loops in the colon to the level of the splenic flexure. 2. Mild fatty infiltration of the liver. 3. Fibroid uterus. LAB CONSISTENT WITH HYPOKALEMIA WILL PROCEDURE WITH CT OF CHEST WITH CONTRAST PERTINENT MEDICAL HISTORY: Significant for: * Hypertension. * History of myocardial infarction in 2005. * History of angiogram with angioplasty in 2005 and in 2023. * History of tobacco use, smokes approximately 2-4 cigarettes a day. * No diabetes. * No history of renal failure. * No history of heart failure. * She has hyperdynamic contractility by echocardiography and diastolic dysfunction. CURRENT MEDICATIONS: Include diltiazem, Dyazide diuretic, and Plavix. More than likely I would need to titrate up on the calcium channel vijaya because of the hyperdynamic contractility that is contributing to the patient's chest pain and contributing to the patient's hypertension with diastolic dysfunction. Past Medical History FAMILY HISTORY: Negative. SOCIAL HISTORY: As described above. Past Surgical History PTCA STENT Family History ABOVE Social History REMOTE HX OF TOBACCO USE Patient Family History: FH: cancer G8 MOTHER Allergies: Coded Allergies: No Known Drug Allergy (Verified Allergy, Unknown, 05/24/23) Home Meds Reported Medications Clopidogrel Bisulfate (CLOPIDOGREL) 75 Mg Tab, 75 MG PO DAILY for s/p cardiac stents, MG 04/16/24 Diltiazem HCl (Diltiazem HCl ER) 240 Mg Tab, 240 MG PO DAILY for htn 07/26/23 Triamterene & Hydrochlorothiaz (Maxzide) 1 Tab Tab, 1 TAB PO DAILY for htn 07/26/23 Review of Systems REVIEW OF SYSTEMS: She denies any fever or chills. No melena or hematochezia. No hematemesis or hemoptysis. No hematuria. No history of liver disease. No history of kidney disease at this time. She has mild COPD however. No history of CVA. No seizure disorder. No history of difficulty swallowing. No GI symptomatology. Vital Signs Vital Signs Date Time Temp Pulse Resp B/P (MAP) Pulse Ox O2 Delivery O2 Flow Rate FiO2 11/07/24 13:04 98.4 100 20 99/63 (75) 95 98.4 Physical Exam VITAL SIGNS: Blood pressure is 144/72, pulse of 78 and regular, O2 saturation 94% on room air. HEENT: Pupils are reactive. Funduscopic exam shows no AV nicking, no exudates, no papilledema. Sclerae anicteric. Extraocular muscles are intact. Tympanic membranes are negative. Oral mucosa moist. Posterior pharynx without any exudate. NECK: No JVD appreciated. Carotid pulses are 2+ symmetrical. No cervical adenopathy. No supraclavicular adenopathy. Thyroid is within normal limits. PULMONARY: Clear to auscultation. CARDIOVASCULAR: Regular rate without S3 and without S4. PMI is not displaced. ABDOMEN: Soft and nontender. Normal bowel sounds. EXTREMITIES: No edema. However, distal pulses are Doppler only. Results Labs Test 11/07/24 12:02 Range/Units White Blood Count 6.2 4.4-10.8 10^3/uL Red Blood Count 4.25 4.0-5.20 10^6/uL Hemoglobin 14.8 12.2-16.2 g/dL Hematocrit 43.8 36.0-46.0 % Mean Corpuscular Volume 103.1 H 80.0-100.0 fL Mean Corpuscular Hemoglobin 34.8 H 28.0-32.0 pg Mean Corpuscular Hemoglobin Concent 33.7 32.0-36.0 g/dL Red Cell Distribution Width 13.9 11.8-14.3 % Platelet Count 398 140-450 10^3/uL Mean Platelet Volume 6.5 L 6.9-10.8 fL Neutrophils (%) (Auto) 61.3 37.0-80.0 % Lymphocytes (%) (Auto) 29.4 10.0-50.0 % Monocytes (%) (Auto) 8.3 0.0-12.0 % Eosinophils (%) (Auto) 0.2 0.0-7.0 % Basophils (%) (Auto) 0.8 0.0-2.0 % Neutrophils # (Auto) 3.8 1.6-8.6 10 ^3/uL Lymphocytes # (Auto) 1.8 0.4-5.4 10 ^3/uL Monocytes # (Auto) 0.5 0-1.3 10 ^3/uL Eosinophils # (Auto) 0 0-0.8 10 ^3/uL Basophils # (Auto) 0.1 0-0.2 10 ^3/uL Nucleated Red Blood Cells 0.2 % D-Dimer, Quantitative 3.28 H 0.0-0.49 mg/L FEU Sodium Level 135 L 136-145 mmol/L Potassium Level 3.0 L 3.5-5.1 mmol/L Chloride Level 93 L 98-107 mmol/L Carbon Dioxide Level 35 H 20-31 mmol/L Anion Gap 7 5-15 Blood Urea Nitrogen 5 L 9-23 mg/dL Creatinine 0.64 0.550-1.02 mg/dL Glomerular Filtration Rate Calc 99 >90 mL/min BUN/Creatinine Ratio 7.8 L 10.0-20.0 Serum Glucose 94 74-106 mg/dL Calcium Level 10.3 8.7-10.4 mg/dL Troponin I High Sensitivity 11 </=34 ng/L B-Type Natriuretic Peptide 47.23 0-100 pg/mL Admitting Diagnosis: ACCELERATED WEIGHT LOSS DYSPHAGIA MELENA S/P COLONOSCOPY REPORTED TO BE NEGATIVE HX OF TOBACCO USE CACHEXIA COPD HTN HX OF LGI BLEED ISCHEMIC COLITIS HX OF CAD S/P PTCA STENT RCA PTCA OF PDA S/P CT ABD AND PELVIS WITH CONTRAST 1. The small bowel loops appear mildly prominent in size measuring up to 2.6 cm in diameter. There is no obvious transition point identified. There are no dilated large bowel loops. There is oral contrast seen in the small bowel loops in the colon to the level of the splenic flexure. 2. Mild fatty infiltration of the liver. 3. Fibroid uterus. LAB CONSISTENT WITH HYPOKALEMIA WILL PROCEDURE WITH CT OF CHEST WITH CONTRAST PERTINENT MEDICAL HISTORY: Significant for: * Hypertension. * History of myocardial infarction in 2005. * History of angiogram with angioplasty in 2005 and in 2023. * History of tobacco use, smokes approximately 2-4 cigarettes a day. * No diabetes. * No history of renal failure. * No history of heart failure. * She has hyperdynamic contractility by echocardiography and diastolic dysfunction. Plan GI CONSULT FOR EGD CT OF CHEST WITH CONTRAST Plan discussed with: Patient Plan MRI OF ABD PELVIS CT WITH CONTRAST OF CHEST IV FLUID/ TPN Plan discussed with: Patient OFELIA OCHOA MD Nov 07, 2024 13:17
[2024-11-07] MEDS: ASPirin 81 mg TAB PO ONE (13:29)
[2024-11-07] MEDS: SODIUM CHLORIDE 0.9% 1,000 ML IV ONE (14:09)
[2024-11-07] MEDS ORDERED: DEXTROSE (50%) 50ML SYRG IV SCH (14:30)
[2024-11-07] MEDS: GADOTERATE MEG 10 MMOL/20ml INJ (0.5MMOL/ml) IV ONE (15:01)
--- NOTE | 2024-11-07 15:38 | DVH ---
XY CHEST TWO VIEWS ROUTINE CLINICAL HISTORY: cp COMPARISON: XY CHEST TWO VIEWS ROUTINE on DOS: 04/16/24 TECHNIQUE: Frontal and lateral view of the chest was obtained FINDINGS: Lines and Tubes: None Lungs: No focal consolidation. Pleura: No effusion. No pneumothorax. Cardiomediastinal contours: Unremarkable Bones: No acute osseous abnormality. IMPRESSION: No acute cardiopulmonary disease.
[2024-11-07 16:27] LABS: Alanine Aminotransferase 18 U/L (7-40); Albumin 4.3 g/dL (3.2-4.8); Alkaline Phosphatase 97 U/L (46-116); Anion Gap 7 (5-15); Aspartate Aminotransferase 25 U/L (13-40); BUN/Creatinine Ratio 9.8 (10.0-20.0); Bilirubin, Total 0.9 mg/dL (0.2-1.0); Calcium 10.1 mg/dL (8.7-10.4); Glucose 99 mg/dL (74-106); Magnesium 1.6 mg/dL (1.6-2.6); Phosphorus 3.5 mg/dL (2.4-5.1); Total Protein 7.8 g/dL (5.7-8.2)
[2024-11-07 16:29] LABS: Blood Urea Nitrogen 6 mg/dL (9-23); Carbon Dioxide 34 mmol/L (20-31); Chloride 94 mmol/L (98-107); Potassium 2.7 mmol/L (3.5-5.1); Sodium 135 mmol/L (136-145)
[2024-11-07 17:10] VITALS: RESP 82; O2SAT 95
--- NOTE | 2024-11-07 18:43 | DVH ---
CLINICAL HISTORY: TECHNIQUE: Utilizing a 1.5 niko scanner, MRI and MRCP of the abdomen was performed with and without gadolinium. ml of was administered intravenously. 3D reconstructed images were obtained. 3D recon structed images were created under concurrent radiologist supervision and archived on the PACS system . WID: COMPARISON: Prior CT study of July 2024 FINDINGS: In the prior CT examination patient had bronchiectasis developing centrilobular emphysema i n the lung bases possible interstitial lung disease. Heart is normal in size the esophagus is unremar kable. Gallbladder is filled with fluid in liver is heterogeneous. Patient has significant atheroscle rotic disease in the abdominal aorta proximal renal arteries and superior mesenteric artery and in th e iliacs and multiple calcified myomas in the uterus moderately large stool burden. Common bile duct dilated 5.35 mm which is within normal limits for age In the current study there is significant sludge in the gallbladder. Kidneys are unremarkable. Adrena ls are normal spleen is normal. Liver has a normal appearance there are no infiltrates or effusions i n the lung bases. Common bile duct is unchanged. Patient has a myomatous uterus there there are 4 mod erately large myomas in additional smaller myomas in the uterus. Paraspinal muscles are fatty infiltr ated which is a degenerative change which could be related to chronic back pain there is no free flui d in the pelvis there are no masses in the lung bases. Mucosa of the rectosigmoid is normal. Hips are grossly unremarkable. IMPRESSION: Anteverted myomatous uterus. There is a large amount of sludge in the gallbladder. In prior CT examination of the abdomen and pelvis chronic interstitial lung disease was appreciated i n the lung bases MRI is largely insensitive to chronic interstitial lung disease CT examination of the chest would be appropriate
[2024-11-07] MEDS: POTASSIUM CHL 20MEQ/50ML 50 ML IV SCH (18:45)
[2024-11-07] MEDS: SODIUM CHL 0.9% 100 ML IV SCH (18:45)
[2024-11-07] MEDS ORDERED: SODIUM CHL 0.9% 100 ML IV SCH (18:45)
[2024-11-07 21:43] VITALS: BP 124/56; PULSE 70; RESP 18; TEMP 97.8; O2SAT 98
[2024-11-07 21:55] VITALS: PULSE 70; RESP 18; O2SAT 98
[2024-11-07 21:59] VITALS: BP 124/56; PULSE 70; RESP 18; TEMP 97.8; O2SAT 98
[2024-11-07] MEDS: AMINO ACID INFUSION IN D10W 1,000 ML IV ONE (22:00)
[2024-11-07 22:29] VITALS: BP 124/56; PULSE 70; RESP 18; TEMP 97.8; O2SAT 98
[2024-11-07] MEDS ORDERED: SUCR1SUS5 PO (22:40)
[2024-11-08] VITALS (7 sets, daily range): BP systolic 94–115; BP diastolic 49–53; PULSE 66–92; RESP 17–20; TEMP 97.4–98.4; O2SAT 95–98
[2024-11-08] MEDS: InsuLIN REG 1unit/0.01ml Soln (100units/ml) SC SCH
[2024-11-08] MEDS: ACCU-CHEK COMFORT CURVE STRIP VI SCH
[2024-11-08] MEDS ORDERED: POTASSIUM CHL 20MEQ/50ML 50 ML IV SCH (01:30)
[2024-11-08] MEDS: POTASSIUM CHL 20MEQ/50ML 50 ML IV ONE ×2 (04:32→16:00)
[2024-11-08 06:48] LABS: Alanine Aminotransferase 13 U/L (7-40); Albumin 3.4 g/dL (3.2-4.8); Alkaline Phosphatase 74 U/L (46-116); Anion Gap 6 (5-15); Aspartate Aminotransferase 19 U/L (13-40); BUN/Creatinine Ratio 8.8 (10.0-20.0); Calcium 9.3 mg/dL (8.7-10.4); Chloride 99 mmol/L (98-107); Glucose 89 mg/dL (74-106); Phosphorus 2.8 mg/dL (2.4-5.1); Sodium 136 mmol/L (136-145); Total Protein 6.2 g/dL (5.7-8.2); Triglycerides 47 mg/dL (< 150)
[2024-11-08 06:49] LABS: Bilirubin, Total 0.9 mg/dL (0.2-1.0); Blood Urea Nitrogen 5 mg/dL (9-23); Carbon Dioxide 31 mmol/L (20-31); Magnesium 1.5 mg/dL (1.6-2.6)
[2024-11-08] MEDS: Ensure HIGH Protein Chocolate 8oz Bottle PO SCH (08:00)
--- NOTE | 2024-11-08 08:15 | DVHPN2 ---
Progress Note - Dictate Date Seen: Nov 08, 2024 Medical Necessity Reason Pt with a Central, PICC or Fol: No Subjective ACCELERATED WEIGHT LOSS DYSPHAGIA MELENA S/P COLONOSCOPY REPORTED TO BE NEGATIVE HX OF TOBACCO USE CACHEXIA COPD HTN HX OF LGI BLEED ISCHEMIC COLITIS HX OF CAD S/P PTCA STENT RCA PTCA OF PDA vital signs Vital Sign Date Time Temp Pulse Resp B/P (MAP) Pulse Ox O2 Delivery O2 Flow Rate FiO2 11/08/24 05:00 97.4 68 17 98/53 (68) 97 97.4 11/07/24 21:55 Room Air* 0 21 Total Intake and Output 11/07/24 11/07/24 11/08/24 15:00 23:00 07:00 Intake Total 50 ml 400 ml Balance 50 ml 400 ml medications Current Medications Medications Dose Ordered Sig/Minal Route Start Time Stop Time Status Last Admin Dose Admin Nitroglycerin 0.4 mg Q5MINP PRN SL 11/07/24 13:15 Morphine Sulfate 2 mg Q30M PRN IV 11/07/24 13:15 Diltiazem HCl 240 mg DAILY PO 11/08/24 10:00 Amino Acids 0 ml @ 0 mls/hr PER PHARMACY IV 11/07/24 13:15 Megestrol Acetate 400 mg DAILY PO 11/08/24 10:00 Enteral Nutritional Formula 240 ml TIDWM PO 11/07/24 18:00 Diagnostic Test (Pha) 1 strip Q6HR 11/07/24 18:00 11/08/24 08:04 1 STRIP Insulin Human Regular FOLLOW SLIDING SCALE Q6HR SC 11/07/24 18:00 Dextrose 50 ml UD IV 11/07/24 14:30 laboratory and microbiology Laboratory Tests 11/08/24 05:49 11/07/24 12:02 Test 11/08/24 05:49 Range/Units Serum Glucose 89 74-106 mg/dL Problem List ACCELERATED WEIGHT LOSS DYSPHAGIA MELENA S/P COLONOSCOPY REPORTED TO BE NEGATIVE HX OF TOBACCO USE CACHEXIA COPD HTN HX OF LGI BLEED ISCHEMIC COLITIS HX OF CAD S/P PTCA STENT RCA PTCA OF PDA Assessment/Plan MRI WITH CONTRAST GALLBLADDER SLUDGE SURGICAL CONSULT Plan discussed with: Patient OFELIA OCHOA MD Nov 08, 2024 08:15
[2024-11-08] MEDS: MEGESTROL ACET 400MG/10ML ORAL SUSP PO SCH (09:47)
[2024-11-08] MEDS: dilTIAZem 120MG ER CAP PO SCH (09:51)
--- NOTE | 2024-11-08 10:14 | ECG ---
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
--- NOTE | 2024-11-08 10:14 | ECG ---
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
--- NOTE | 2024-11-08 11:13 | DVHINCON2 ---
Date of service: Nov 08, 2024 Family History: FH: cancer G8 MOTHER Allergies: Coded Allergies: No Known Drug Allergy (Verified Allergy, Unknown, 05/24/23) Home Meds Reported Medications Sucralfate (Carafate) 1 Gm/10 Ml Argenis, 1 GM PO, ML 11/07/24 Clopidogrel Bisulfate (CLOPIDOGREL) 75 Mg Tab, 75 MG PO DAILY for s/p cardiac stents, MG 04/16/24 Diltiazem HCl (Diltiazem HCl ER) 240 Mg Tab, 240 MG PO DAILY for htn 07/26/23 Triamterene & Hydrochlorothiaz (Maxzide) 1 Tab Tab, 1 TAB PO DAILY for htn 07/26/23 Current Medications Current Medications Medications (Trade) Dose Ordered Sig/Minal Route PRN Reason Start Time Stop Time Status Last Admin Nitroglycerin (Ntrostat Sublingual) 0.4 mg Q5MINP PRN SL FOR CHEST PAIN 11/07/24 13:15 Morphine Sulfate 2 mg Q30M PRN IV FOR CHEST PAIN 11/07/24 13:15 Diltiazem HCl (Cardizem ER Capsule) 240 mg DAILY PO 11/08/24 10:00 11/08/24 09:51 Amino Acids 0 ml @ 0 mls/hr PER PHARMACY IV 11/07/24 13:15 Megestrol Acetate (Megace Oral Suspension) 400 mg DAILY PO 11/08/24 10:00 11/08/24 09:47 Enteral Nutritional Formula (Ensure High Protein) 240 ml TIDWM PO 11/07/24 18:00 11/08/24 09:49 Diagnostic Test (Pha) (Accu-Chek Comfort Curve T) 1 strip Q6HR 11/07/24 18:00 11/08/24 08:04 Insulin Human Regular (InsuLIN R) FOLLOW SLIDING SCALE Q6HR SC 11/07/24 18:00 Dextrose 50 ml UD IV 11/07/24 14:30 Potassium Chloride 50 ml @ 25 mls/hr Q2H IV 11/07/24 18:45 11/07/24 22:44 DC 11/08/24 01:19 Sodium Chloride 100 ml @ 50 mls/hr Q2H IV 11/07/24 18:45 11/07/24 18:42 DC Sodium Chloride 100 ml @ 50 mls/hr Q2H IV 11/07/24 18:45 11/07/24 22:44 DC 11/07/24 18:45 Potassium Chloride 50 ml @ 25 mls/hr Q2H IV 11/08/24 01:30 11/08/24 01:17 DC Vital Signs Vital Signs Date Time Temp Pulse Resp B/P (MAP) Pulse Ox O2 Delivery O2 Flow Rate FiO2 11/08/24 09:51 80 94/51 11/08/24 08:44 98.4 17 95 98.4 11/07/24 21:55 Room Air* 0 21 Labs/Diagnostic Data Labs Test 11/08/24 07:46 11/08/24 05:49 11/07/24 15:43 11/07/24 12:02 Range/Units POC Glucose 96 70-106 mg/dl Sodium Level 136 136-145 mmol/L Potassium Level 3.0 L 3.5-5.1 mmol/L Chloride Level 99 98-107 mmol/L Carbon Dioxide Level 31 20-31 mmol/L Anion Gap 6 5-15 Blood Urea Nitrogen 5 L 9-23 mg/dL Creatinine 0.57 0.550-1.02 mg/dL Glomerular Filtration Rate Calc 102 >90 mL/min BUN/Creatinine Ratio 8.8 L 10.0-20.0 Serum Glucose 89 74-106 mg/dL Calcium Level 9.3 8.7-10.4 mg/dL Phosphorus Level 2.8 2.4-5.1 mg/dL Magnesium Level 1.5 L 1.6-2.6 mg/dL Total Bilirubin 0.9 0.2-1.0 mg/dL Aspartate Amino Transferase (AST) 19 13-40 U/L Alanine Aminotransferase (ALT) 13 7-40 U/L Alkaline Phosphatase 74 46-116 U/L Total Protein 6.2 5.7-8.2 g/dL Albumin 3.4 3.2-4.8 g/dL Triglycerides Level 47 < 150 mg/dL Troponin I High Sensitivity 12 </=34 ng/L White Blood Count 6.2 4.4-10.8 10^3/uL Red Blood Count 4.25 4.0-5.20 10^6/uL Hemoglobin 14.8 12.2-16.2 g/dL Hematocrit 43.8 36.0-46.0 % Mean Corpuscular Volume 103.1 H 80.0-100.0 fL Mean Corpuscular Hemoglobin 34.8 H 28.0-32.0 pg Mean Corpuscular Hemoglobin Concent 33.7 32.0-36.0 g/dL Red Cell Distribution Width 13.9 11.8-14.3 % Platelet Count 398 140-450 10^3/uL Mean Platelet Volume 6.5 L 6.9-10.8 fL Neutrophils (%) (Auto) 61.3 37.0-80.0 % Lymphocytes (%) (Auto) 29.4 10.0-50.0 % Monocytes (%) (Auto) 8.3 0.0-12.0 % Eosinophils (%) (Auto) 0.2 0.0-7.0 % Basophils (%) (Auto) 0.8 0.0-2.0 % Neutrophils # (Auto) 3.8 1.6-8.6 10 ^3/uL Lymphocytes # (Auto) 1.8 0.4-5.4 10 ^3/uL Monocytes # (Auto) 0.5 0-1.3 10 ^3/uL Eosinophils # (Auto) 0 0-0.8 10 ^3/uL Basophils # (Auto) 0.1 0-0.2 10 ^3/uL Nucleated Red Blood Cells 0.2 % D-Dimer, Quantitative 3.28 H 0.0-0.49 mg/L FEU B-Type Natriuretic Peptide 47.23 0-100 pg/mL Assessment patient having post prandial abdominal pain, tender ruq of abdomen, normal liver function tests, mri shows ;large amount of sludge, she will most probably benefit from cholecystectomy, needs cardiac clearance and correct electrolyte imbalance, Plan discussed with: Patient HECTOR BALLARD MD Nov 08, 2024 11:13
[2024-11-08] MEDS ORDERED: POTASSIUM CHL 20 Meq TABLET PO ONE (14:00)
--- NOTE | 2024-11-08 14:08 | DVHPN2 ---
Progress Note Date Seen: Nov 08, 2024 Medical Necessity Reason Pt with a Central, PICC or Fol: No Subjective Patient reports: No new complaints Review of Systems: HEENT:Normal, CVS:Normal, RESPIRATORY:Normal, GI:Normal, :Normal, MSK:Normal, NEURO:Normal Objective vital signs Vital Sign Date Time Temp Pulse Resp B/P (MAP) Pulse Ox O2 Delivery O2 Flow Rate FiO2 11/08/24 12:55 97.4 92 18 115/53 (73) 98 97.4 11/08/24 08:00 Room Air* 0 21 Total Intake and Output 11/07/24 11/07/24 11/08/24 15:00 23:00 07:00 Intake Total 50 ml 400 ml Balance 50 ml 400 ml medications Current Medications Medications Dose Ordered Sig/Minal Route Start Time Stop Time Status Last Admin Dose Admin Nitroglycerin 0.4 mg Q5MINP PRN SL 11/07/24 13:15 Morphine Sulfate 2 mg Q30M PRN IV 11/07/24 13:15 Diltiazem HCl 240 mg DAILY PO 11/08/24 10:00 11/08/24 09:51 240 MG Amino Acids 0 ml @ 0 mls/hr PER PHARMACY IV 11/07/24 13:15 Megestrol Acetate 400 mg DAILY PO 11/08/24 10:00 11/08/24 09:47 400 MG Enteral Nutritional Formula 240 ml TIDWM PO 11/07/24 18:00 11/08/24 12:49 240 ML Diagnostic Test (Pha) 1 strip Q6HR 11/07/24 18:00 11/08/24 12:48 1 STRIP Insulin Human Regular FOLLOW SLIDING SCALE Q6HR SC 11/07/24 18:00 Dextrose 50 ml UD IV 11/07/24 14:30 Fat Emulsion Intravenous 50 ml/ Sodium Chloride 20 meq/Potassium Phosphate 20 meq/ Magnesium Sulfate 8 meq/ Multivitamins 10 ml/Chromium/ Copper/Manganese/ Zinc 1 ml/Amino Acids/Dextrose/ Purified Water 1,222.5455 ml @ 51 mls/hr [id number] IV 11/08/24 22:00 11/09/24 21:59 Examination: GENERAL:Normal, HEENT:Normal, NECK:Normal, LUNGS:Normal, CVS:Normal, ABDOMEN:Normal, MSK:Normal, SKIN:Normal, NEURO:Normal, :Normal laboratory and microbiology Laboratory Tests 11/08/24 05:49 11/07/24 12:02 Test 11/08/24 05:49 Range/Units Serum Glucose 89 74-106 mg/dL Problem List/Assessment/Plan Problem List/Assessment/Plan #1 wt loss ?acute mercedes: surg eval #2 htn #3 cad s/p ptca #4 copd #5 tobacco abuse: advised to quit, refused nicotine patch- time spent 11 mins #6 right leg pain: check doppler #7 elevated mcv: b12 ,tsh #8 hypokalemia: replace advance care planning- full code- time spent 19 mins Plan discussed with: Patient, Daughter My Orders My Orders Orders - ERNESTINE CENTENO MD Procedure Category Date Status Time Diltiazem Er Capsule PHA 11/09/24 Transmitted (Cardizem Er Capsul 10:00 Rt Lower Dvt US 11/08/24 Transmitted 13:58 Urinalysis LAB 11/08/24 Uncollected 13:58 Basic Metabolic Panel LAB 11/09/24 Verified 06:00 Magnesium LAB 11/09/24 Verified 05:00 Vitamin B12 LAB 11/09/24 Verified 06:00 Thyroid Stimulating LAB 11/09/24 Verified Hormone 05:00 Potassium Er Tablet PHA 11/08/24 Transmitted (Klor-Con Tablet) 14:00 Pt Request For Service PT 11/08/24 Transmitted 13:58 Date of Service: Nov 08, 2024 Billing Provider: ERNESTINE CENTENO MD Common Visit Codes: 08174-[id number] INP/OBS CARE(HIGH) Secondary Visit Codes: 67637-[id number] CHNG SMOKING >10MIN, [id number] CARE PLAN 30 MINUTES ERNESTINE CENTENO MD Nov 08, 2024 14:07
--- NOTE | 2024-11-08 14:40 | DVH ---
Ultrasound right lower extremity venous Doppler INDICATION: DVT TECHNIQUE: Duplex venous sonography was performed with real-time and flow sensitive images submitted for evaluation. FINDINGS: There is thrombus present in the right popliteal vein right trifurcation veins and right p osterior tibialis vein. These vessels are noncompressible IMPRESSION: 1. Extensive deep vein thrombosis of right lower extremity from the popliteal vein into the calf vess els 2. Nurse Tracey caring for this patient was given a verbal report
[2024-11-08] MEDS: MAGNESIUM SULFATE 1GM/100ML 100 ML IV ONE (14:42)
[2024-11-08] MEDS ORDERED: ACETAMINOPHEN 325 MG TAB PO PRN (15:00)
[2024-11-08] MEDS: SODIUM CHL 0.9% 50 ML IV ONE (15:24)
[2024-11-08] MEDS: PANTOPRAZOLE 40 MG/10 ML VIAL INJ IV ONE (15:42)
[2024-11-08] MEDS: ENOXAPARIN SOD 60 MG/0.6 ML SYRINGE SC ONE (15:42)
[2024-11-08] MEDS: HYDROcodone-ACET 5/325MG TAB PO PRN (15:43)
[2024-11-08 15:56] LABS: Urine Bacteria None Seen /hpf (None Seen)
[2024-11-08 16:06] LABS: Urine Blood Negative /uL (Negative); Urine Clarity Clear (Clear); Urine Color Light-Yellow (Yellow); Urine Protein, UAD Negative (Negative); Urine Squamous Epithelial Cell FEW /hpf (<5); Urine Urobilinogen 3 mg/dL (Negative); Urine WBC < 1 /HPF (0-5); Urine pH 7.5 (5.0-9.0)
--- NOTE | 2024-11-08 19:52 | DVHINCON2 ---
Date of service: Nov 08, 2024 Referring Physician Reason for Consultation Abdominal pain nausea GERD symptoms chest pain History of Present Illness This 64-year-old female presented to the complaints with presented to the emergency room with a complaint chest pain which was substernal had some nausea anorexia patient had GA in the past Has some epigastric pain also Ultrasound apparently showed some gallbladder sludge patient is going for possible gallbladder surgery for the nausea and other symptoms Past Medical History GA Past Surgical History History none Family History: FH: cancer G8 MOTHER Family History Noncontributory Social History Denies smoking or drink Allergies: Coded Allergies: No Known Drug Allergy (Verified Allergy, Unknown, 05/24/23) Home Meds Reported Medications Sucralfate (Carafate) 1 Gm/10 Ml Argenis, 1 GM PO, ML 11/07/24 Clopidogrel Bisulfate (CLOPIDOGREL) 75 Mg Tab, 75 MG PO DAILY for s/p cardiac stents, MG 04/16/24 Diltiazem HCl (Diltiazem HCl ER) 240 Mg Tab, 240 MG PO DAILY for htn 07/26/23 Triamterene & Hydrochlorothiaz (Maxzide) 1 Tab Tab, 1 TAB PO DAILY for htn 07/26/23 Current Medications Current Medications Medications (Trade) Dose Ordered Sig/Minal Route PRN Reason Start Time Stop Time Status Last Admin Diltiazem HCl (Cardizem ER Capsule) 240 mg DAILY PO 11/08/24 10:00 11/08/24 14:02 DC 11/08/24 09:51 Megestrol Acetate (Megace Oral Suspension) 400 mg DAILY PO 11/08/24 10:00 11/08/24 09:47 Potassium Chloride 50 ml @ 25 mls/hr Q2H IV 11/08/24 01:30 11/08/24 01:17 DC Fat Emulsion Intravenous 50 ml/ Sodium Chloride 20 meq/Potassium Phosphate 20 meq/ Magnesium Sulfate 8 meq/ Multivitamins 10 ml/Chromium/ Copper/Manganese/ Zinc 1 ml/Amino Acids/Dextrose/ Purified Water 1,222.5455 ml @ 51 mls/hr [id number] IV 11/08/24 22:00 11/09/24 21:59 Diltiazem HCl (Cardizem LA Capsule) 180 mg DAILY PO 11/09/24 10:00 Enoxaparin Sodium (Lovenox) 50 mg Q12HR SC 11/08/24 22:00 Morphine Sulfate 1 mg Q4HP PRN IV SEVERE PAIN (7-10 PAIN SCALE) 11/08/24 15:00 Acetaminophen/ Hydrocodone Bitart ([place] 5/325MG Tab) 1 tab Q6HPRN PRN PO MODERATE PAIN (4-6 PAIN SCALE) 11/08/24 15:00 11/08/24 15:43 Acetaminophen (Tylenol Tablet) 650 mg Q6HP PRN PO MILD PAIN (1-3 PAIN SCALE) 11/08/24 15:00 Pantoprazole Sodium (Protonix) 40 mg DAILY IV 11/09/24 10:00 Ondansetron HCl (Zofran) 4 mg Q6HPRN PRN IV NAUSEA / VOMITING 11/08/24 15:00 Review of Systems Unremarkable Vital Signs Vital Signs Date Time Temp Pulse Resp B/P (MAP) Pulse Ox O2 Delivery O2 Flow Rate FiO2 11/08/24 17:00 97.5 66 18 110/51 (70) 98 97.5 11/08/24 08:00 Room Air* 0 21 Physical Exam Moderately built and nourished female in no acute distress HEENT examination no pallor Lungs clear Cardiovascular normal Abdomen is soft no tenderness no rigidity no guarding Extremities no edema Labs/Diagnostic Data Labs Test 11/08/24 15:50 11/08/24 12:05 11/08/24 05:49 11/07/24 15:43 Range/Units Urine Color Light-yellow Yellow Urine Clarity Clear Clear Urine pH 7.5 5.0-9.0 Urine Specific [place] 1.010 1.001-1.035 Urine Protein Negative Negative Urine Ketones Negative Negative Urine Blood Negative Negative /uL Urine Nitrite Negative Negative Urine Bilirubin Negative Negative Urine Urobilinogen 3 H Negative mg/dL Urine Leukocyte Esterase Negative Negative /uL Urine RBC None seen 0 - 4 /hpf Urine Microscopic WBC < 1 0-5 /HPF Urine Squamous Epithelial Cells Few <5 /hpf Urine Bacteria None seen None Seen /hpf Urine Glucose Normal Normal mg/dL POC Glucose 106 70-106 mg/dl Sodium Level 136 136-145 mmol/L Potassium Level 3.0 L 3.5-5.1 mmol/L Chloride Level 99 98-107 mmol/L Carbon Dioxide Level 31 20-31 mmol/L Anion Gap 6 5-15 Blood Urea Nitrogen 5 L 9-23 mg/dL Creatinine 0.57 0.550-1.02 mg/dL Glomerular Filtration Rate Calc 102 >90 mL/min BUN/Creatinine Ratio 8.8 L 10.0-20.0 Serum Glucose 89 74-106 mg/dL Calcium Level 9.3 8.7-10.4 mg/dL Phosphorus Level 2.8 2.4-5.1 mg/dL Magnesium Level 1.5 L 1.6-2.6 mg/dL Total Bilirubin 0.9 0.2-1.0 mg/dL Aspartate Amino Transferase (AST) 19 13-40 U/L Alanine Aminotransferase (ALT) 13 7-40 U/L Alkaline Phosphatase 74 46-116 U/L Total Protein 6.2 5.7-8.2 g/dL Albumin 3.4 3.2-4.8 g/dL Triglycerides Level 47 < 150 mg/dL Troponin I High Sensitivity 12 </=34 ng/L Test 11/07/24 12:02 Range/Units White Blood Count 6.2 4.4-10.8 10^3/uL Red Blood Count 4.25 4.0-5.20 10^6/uL Hemoglobin 14.8 12.2-16.2 g/dL Hematocrit 43.8 36.0-46.0 % Mean Corpuscular Volume 103.1 H 80.0-100.0 fL Mean Corpuscular Hemoglobin 34.8 H 28.0-32.0 pg Mean Corpuscular Hemoglobin Concent 33.7 32.0-36.0 g/dL Red Cell Distribution Width 13.9 11.8-14.3 % Platelet Count 398 140-450 10^3/uL Mean Platelet Volume 6.5 L 6.9-10.8 fL Neutrophils (%) (Auto) 61.3 37.0-80.0 % Lymphocytes (%) (Auto) 29.4 10.0-50.0 % Monocytes (%) (Auto) 8.3 0.0-12.0 % Eosinophils (%) (Auto) 0.2 0.0-7.0 % Basophils (%) (Auto) 0.8 0.0-2.0 % Neutrophils # (Auto) 3.8 1.6-8.6 10 ^3/uL Lymphocytes # (Auto) 1.8 0.4-5.4 10 ^3/uL Monocytes # (Auto) 0.5 0-1.3 10 ^3/uL Eosinophils # (Auto) 0 0-0.8 10 ^3/uL Basophils # (Auto) 0.1 0-0.2 10 ^3/uL Nucleated Red Blood Cells 0.2 % D-Dimer, Quantitative 3.28 H 0.0-0.49 mg/L FEU B-Type Natriuretic Peptide 47.23 0-100 pg/mL Assessment 64-year-old with complaints of abdominal pain nausea anorexia some GERD symptoms has got some ultrasound showing some gallbladder stones. Denies hematemesis or melena had some GI workup in the past recently by Dr. Olvera in [place] which were apparently normal as per the patient but not sure as per the patient Clinical impression chest pain history of GA gallbladder sludge with possible gallbladder disease also Plan/Recommendation Patient has got for gallbladder surgery and if symptoms persist later may need further workup as necessary Thank you Dr. Boothe Plan discussed with: Patient JAMES BOOTHE MD Nov 08, 2024 19:52
[2024-11-08] MEDS: SODIUM CHLORIDE IV NR (22:00)
[2024-11-08] MEDS: [UNRECOGNIZED DRUG - OTHER] IV NR (22:00)
[2024-11-08] MEDS: POTASSIUM PHOSPHATE IV NR (22:00)
[2024-11-08] MEDS: FAT EMULSION IV NR (22:00)
[2024-11-08] MEDS: ENOXAPARIN SOD 60 MG/0.6 ML SYRINGE SC SCH (23:20)
[2024-11-09 05:00] VITALS: BP 110/53; PULSE 63; RESP 18; TEMP 98.7; O2SAT 95
[2024-11-09 08:00] VITALS: PULSE 69
[2024-11-09 08:07] LABS: Alanine Aminotransferase 14 U/L (7-40); Albumin 3.5 g/dL (3.2-4.8); Alkaline Phosphatase 69 U/L (46-116); Anion Gap 5 (5-15); Aspartate Aminotransferase 17 U/L (13-40); Calcium 9.2 mg/dL (8.7-10.4); Carbon Dioxide 30 mmol/L (20-31); Chloride 102 mmol/L (98-107); Glucose 84 mg/dL (74-106); Magnesium 1.8 mg/dL (1.6-2.6); Sodium 137 mmol/L (136-145); Total Protein 6.3 g/dL (5.7-8.2)
[2024-11-09 08:08] LABS: Bilirubin, Total 0.8 mg/dL (0.2-1.0); Blood Urea Nitrogen 6 mg/dL (9-23); Phosphorus 2.6 mg/dL (2.4-5.1); Potassium 2.9 mmol/L (3.5-5.1)
[2024-11-09 08:25] LABS: BUN/Creatinine Ratio 12.2 (10.0-20.0)
[2024-11-09 09:00] VITALS: BP 99/42; PULSE 70; RESP 15; TEMP 98.6; O2SAT 97
[2024-11-09] MEDS: dilTIAZem HCL 180MG ER CAP PO SCH (09:51)
[2024-11-09] MEDS: PANTOPRAZOLE 40 MG/10 ML VIAL INJ IV SCH (09:52)
[2024-11-09] MEDS: POTASSIUM CHL 20MEQ/50ML 50 ML IV SCH (11:15)
[2024-11-09] MEDS: SODIUM CHL 0.9% 100 ML IV SCH (11:16)
--- NOTE | 2024-11-09 13:28 | DVHPN2 ---
Progress Note Date Seen: Nov 09, 2024 Medical Necessity Reason Pt with a Central, PICC or Fol: No Objective vital signs Vital Sign Date Time Temp Pulse Resp B/P (MAP) Pulse Ox O2 Delivery O2 Flow Rate FiO2 11/09/24 09:51 70 99/42 11/09/24 09:00 98.6 15 97 98.6 11/09/24 08:00 Room Air* 0 21 Total Intake and Output 11/08/24 11/08/24 11/09/24 15:00 23:00 07:00 Intake Total 240 ml 500 ml Balance 240 ml 500 ml medications Current Medications Medications Dose Ordered Sig/Minal Route Start Time Stop Time Status Last Admin Dose Admin Nitroglycerin 0.4 mg Q5MINP PRN SL 11/07/24 13:15 Morphine Sulfate 2 mg Q30M PRN IV 11/07/24 13:15 Amino Acids 0 ml @ 0 mls/hr PER PHARMACY IV 11/07/24 13:15 Megestrol Acetate 400 mg DAILY PO 11/08/24 10:00 11/09/24 09:49 400 MG Enteral Nutritional Formula 240 ml TIDWM PO 11/07/24 18:00 11/09/24 12:00 240 ML Diagnostic Test (Pha) 1 strip Q6HR 11/07/24 18:00 11/09/24 12:00 1 STRIP Insulin Human Regular FOLLOW SLIDING SCALE Q6HR SC 11/07/24 18:00 11/08/24 23:33 2 UNITS Dextrose 50 ml UD IV 11/07/24 14:30 Fat Emulsion Intravenous 50 ml/ Sodium Chloride 20 meq/Potassium Phosphate 20 meq/ Magnesium Sulfate 8 meq/ Multivitamins 10 ml/Chromium/ Copper/Manganese/ Zinc 1 ml/Amino Acids/Dextrose/ Purified Water 1,222.5455 ml @ 51 mls/hr [id number] IV 11/08/24 22:00 11/09/24 21:59 11/08/24 22:00 51 MLS/HR Diltiazem HCl 180 mg DAILY PO 11/09/24 10:00 11/09/24 09:51 180 MG Enoxaparin Sodium 50 mg Q12HR SC 11/08/24 22:00 11/08/24 23:20 50 MG Morphine Sulfate 1 mg Q4HP PRN IV 11/08/24 15:00 Acetaminophen/ Hydrocodone Bitart 1 tab Q6HPRN PRN PO 11/08/24 15:00 11/08/24 15:43 1 TAB Acetaminophen 650 mg Q6HP PRN PO 11/08/24 15:00 Pantoprazole Sodium 40 mg DAILY IV 11/09/24 10:00 11/09/24 09:52 40 MG Ondansetron HCl 4 mg Q6HPRN PRN IV 11/08/24 15:00 Fat Emulsion Intravenous 150 ml/Sodium Phosphate 20 meq/ Potassium Chloride 40 meq/ Potassium Phosphate 22 meq/ Magnesium Sulfate 12 meq/ Multivitamins 10 ml/Chromium/ Copper/Manganese/ Zinc 1 ml/Amino Acids/Dextrose/ Purified Water 1,994 ml @ 83 mls/hr Q24H2M IV 11/09/24 22:00 11/10/24 21:59 Potassium Chloride 50 ml @ 25 mls/hr Q2H IV 11/09/24 11:00 11/09/24 16:59 11/09/24 11:15 25 MLS/HR Sodium Chloride 100 ml @ 50 mls/hr Q2H IV 11/09/24 11:00 11/09/24 16:59 11/09/24 11:16 50 MLS/HR laboratory and microbiology Laboratory Tests 11/09/24 06:50 11/07/24 12:02 Test 11/09/24 06:50 Range/Units Serum Glucose 84 74-106 mg/dL Problem List/Assessment/Plan Problem List/Assessment/Plan 11/09/24 SPOKE TO PRIMARY md WHO CLEARED THE PATIENT FOR OPERATION FROM CARDIAC POINT OF VIEW, hE AGREES WITH [PROCEEDING WITH CHOLECYSTECTOMY, OPERATION, RISKS AND COMPLICATIONS EXPLAINED TO PATIENT IN DETAIL Plan discussed with: Patient Dietary Evaluation Review Comments: 1. Current nutrition support of combined Clinimix plus TPN is providing a total 95 g Protein, 1160 kcal. supporting pt's needs at 130% pro. and 76% energy in Kcal. Pt weights 54.5 kg on bedscale this afternoon. noted a 5kg gain from yester. 2. Advance diet to regular texture as tolerated after ther gallblader surgery as medically feasible. 3. Quick smoking/tobacco use. Expected Outcomes/Goals: gradual weight gain, HECTOR BALLARD MD Nov 09, 2024 13:28
[2024-11-09 14:15] LABS: INR 1.05 (0.9-1.15); Partial Thromboplastin Time 25.3 SEC (24.5-34.5); Prothrombin Time 11.1 sec (9.3-11.8)
--- NOTE | 2024-11-09 14:35 | DVHPN2 ---
Progress Note - Dictate Date Seen: Nov 09, 2024 Medical Necessity Reason Pt with a Central, PICC or Fol: No Subjective ACCELERATED WEIGHT LOSS DYSPHAGIA MELENA S/P COLONOSCOPY REPORTED TO BE NEGATIVE HX OF TOBACCO USE CACHEXIA COPD HTN HX OF LGI BLEED ISCHEMIC COLITIS HX OF CAD S/P PTCA STENT RCA PTCA OF PDA vital signs Vital Sign Date Time Temp Pulse Resp B/P (MAP) Pulse Ox O2 Delivery O2 Flow Rate FiO2 11/09/24 09:51 70 99/42 11/09/24 09:00 98.6 15 97 98.6 11/09/24 08:00 Room Air* 0 21 Total Intake and Output 11/08/24 11/08/24 11/09/24 15:00 23:00 07:00 Intake Total 240 ml 500 ml Balance 240 ml 500 ml medications Current Medications Medications Dose Ordered Sig/Minal Route Start Time Stop Time Status Last Admin Dose Admin Nitroglycerin 0.4 mg Q5MINP PRN SL 11/07/24 13:15 Morphine Sulfate 2 mg Q30M PRN IV 11/07/24 13:15 Amino Acids 0 ml @ 0 mls/hr PER PHARMACY IV 11/07/24 13:15 Megestrol Acetate 400 mg DAILY PO 11/08/24 10:00 11/09/24 09:49 400 MG Enteral Nutritional Formula 240 ml TIDWM PO 11/07/24 18:00 11/09/24 12:00 240 ML Diagnostic Test (Pha) 1 strip Q6HR 11/07/24 18:00 11/09/24 12:00 1 STRIP Insulin Human Regular FOLLOW SLIDING SCALE Q6HR SC 11/07/24 18:00 11/08/24 23:33 2 UNITS Dextrose 50 ml UD IV 11/07/24 14:30 Fat Emulsion Intravenous 50 ml/ Sodium Chloride 20 meq/Potassium Phosphate 20 meq/ Magnesium Sulfate 8 meq/ Multivitamins 10 ml/Chromium/ Copper/Manganese/ Zinc 1 ml/Amino Acids/Dextrose/ Purified Water 1,222.5455 ml @ 51 mls/hr [id number] IV 11/08/24 22:00 11/09/24 21:59 11/08/24 22:00 51 MLS/HR Diltiazem HCl 180 mg DAILY PO 11/09/24 10:00 11/09/24 09:51 180 MG Enoxaparin Sodium 50 mg Q12HR SC 11/08/24 22:00 11/08/24 23:20 50 MG Morphine Sulfate 1 mg Q4HP PRN IV 11/08/24 15:00 Acetaminophen/ Hydrocodone Bitart 1 tab Q6HPRN PRN PO 11/08/24 15:00 11/08/24 15:43 1 TAB Acetaminophen 650 mg Q6HP PRN PO 11/08/24 15:00 Pantoprazole Sodium 40 mg DAILY IV 11/09/24 10:00 11/09/24 09:52 40 MG Ondansetron HCl 4 mg Q6HPRN PRN IV 11/08/24 15:00 Fat Emulsion Intravenous 150 ml/Sodium Phosphate 20 meq/ Potassium Chloride 40 meq/ Potassium Phosphate 22 meq/ Magnesium Sulfate 12 meq/ Multivitamins 10 ml/Chromium/ Copper/Manganese/ Zinc 1 ml/Amino Acids/Dextrose/ Purified Water 1,994 ml @ 83 mls/hr Q24H2M IV 11/09/24 22:00 11/10/24 21:59 Potassium Chloride 50 ml @ 25 mls/hr Q2H IV 11/09/24 11:00 11/09/24 16:59 11/09/24 11:15 25 MLS/HR Sodium Chloride 100 ml @ 50 mls/hr Q2H IV 11/09/24 11:00 11/09/24 16:59 11/09/24 11:16 50 MLS/HR laboratory and microbiology Laboratory Tests 11/09/24 06:50 11/07/24 12:02 Test 11/09/24 06:50 Range/Units Serum Glucose 84 74-106 mg/dL Problem List ACCELERATED WEIGHT LOSS DYSPHAGIA MELENA S/P COLONOSCOPY REPORTED TO BE NEGATIVE HX OF TOBACCO USE CACHEXIA COPD HTN HX OF LGI BLEED ISCHEMIC COLITIS HX OF CAD S/P PTCA STENT RCA PTCA OF PDA Assessment/Plan MRI WITH CONTRAST GALLBLADDER SLUDGE SURGICAL CONSULT PT MAY PROCEED WITH SURGERY ASA II NEEDS CHOLECYSTECTOMY Dietary Evaluation Review Comments: 1. Current nutrition support of combined Clinimix plus TPN is providing a total 95 g Protein, 1160 kcal. supporting pt's needs at 130% pro. and 76% energy in Kcal. Pt weights 54.5 kg on bedscale this afternoon. noted a 5kg gain from yester. 2. Advance diet to regular texture as tolerated after ther gallblader surgery as medically feasible. 3. Quick smoking/tobacco use. Expected Outcomes/Goals: gradual weight gain, Plan discussed with: Patient Critical Care Time(min): 35 OFELIA OCHOA MD Nov 09, 2024 14:35
[2024-11-09] MEDS: MORPHINE SULFATE INJ 2 MG/ml SYRG IV PRN (15:18)
[2024-11-09 17:00] VITALS: BP 110/54; PULSE 72; RESP 16; TEMP 98.1; O2SAT 97
[2024-11-09 20:00] VITALS: PULSE 72; PULSE 82; RESP 18; O2SAT 95
[2024-11-09 21:00] VITALS: BP 91/42; PULSE 82; RESP 18; TEMP 98.4; O2SAT 95
[2024-11-09] MEDS: PPN PER PHARMACY IV NR (21:57)
[2024-11-10] VITALS (37 sets, daily range): BP systolic 70–165; BP diastolic 40–83; PULSE 69–106; RESP 13–29; TEMP 97.8–98.7; O2SAT 92–100
[2024-11-10 06:09] LABS: Alanine Aminotransferase 13 U/L (7-40); Albumin 3.2 g/dL (3.2-4.8); Alkaline Phosphatase 58 U/L (46-116); Anion Gap 5 (5-15); Aspartate Aminotransferase 15 U/L (13-40); Blood Urea Nitrogen 9 mg/dL (9-23); Carbon Dioxide 27 mmol/L (20-31); Chloride 105 mmol/L (98-107); Glucose 94 mg/dL (74-106); Magnesium 1.7 mg/dL (1.6-2.6); Potassium 3.8 mmol/L (3.5-5.1); Sodium 137 mmol/L (136-145); Total Protein 5.8 g/dL (5.7-8.2)
[2024-11-10 06:10] LABS: Bilirubin, Total 0.8 mg/dL (0.2-1.0); Phosphorus 3.4 mg/dL (2.4-5.1)
[2024-11-10] MEDS: ceFAZolin 2 GM/D5W50ml 50 ML IV ONE (06:58)
[2024-11-10] MEDS ORDERED: ONDANSETRON HCL 4 MG/2 ML VIAL ONE (07:48)
[2024-11-10] MEDS ORDERED: SUGAMMADEX 200mg/2ml Vial (100MG/ML) IV ONE (07:48)
[2024-11-10] MEDS ORDERED: PROPOFOL 10 MG/ML 20 ML IV ONE (07:48)
[2024-11-10] MEDS ORDERED: ROCURONIUM 10MG/ML 10ML VIAL IV ONE (07:48)
[2024-11-10] MEDS ORDERED: KETOROLAC TROMETH 30 MG/ML 1ML VIAL ONE (07:48)
[2024-11-10] MEDS ORDERED: DexAMETHasone SOD PHOS 10MG/1ML VIAL INJ ONE (07:48)
[2024-11-10] MEDS ORDERED: LIDOCAINE 2% (LOCAL ANESTH.) PF 5ml SDV ONE (07:48)
[2024-11-10] MEDS ORDERED: GLYCOPYRROLATE 0.2 MG/ML 1ML VIAL ONE (07:48)
[2024-11-10] MEDS ORDERED: KETAMINE 50mg/ML 1ml syringe ONE (07:49)
[2024-11-10] MEDS ORDERED: fentaNYL CITRATE 100 MCG/2 ML VL ONE (07:49)
[2024-11-10] MEDS: CELECOXIB 100 MG CAP ONE (08:46)
[2024-11-10] MEDS: GABAPENTIN 300 MG CAP ONE (08:46)
[2024-11-10] MEDS: ACETAMINOPHEN IV 100 ML IV ONE (08:47)
[2024-11-10] MEDS: LIDOCAINE 2%HCL (LOCAL ANESTH.) INJ 10ml MDV ONE (08:47)
[2024-11-10] MEDS: ACETAMINOPHEN IV 1000 MG/100ML (10MG/ML) IV ONE (09:07)
[2024-11-10] MEDS: GABAPENTIN 300 MG CAP PO ONE (09:07)
[2024-11-10] MEDS: CELECOXIB 100 MG CAP PO ONE (09:07)
[2024-11-10] MEDS ORDERED: ePHEDrine SULFATE 50 MG/ML AMP ONE (09:43)
[2024-11-10] MEDS ORDERED: NALOXONE HCL 0.4 MG/ML VIAL IV PRN (10:15)
[2024-11-10] MEDS ORDERED: fentaNYL CITRATE 100 MCG/2 ML VL IV PRN (10:15)
[2024-11-10] MEDS ORDERED: hydrALAZINE HCL 20 MG/ML VL IV PRN (10:15)
[2024-11-10] MEDS ORDERED: FLUMAZENIL 0.1 MG/ML INJ 10ML MDV IV PRN (10:15)
[2024-11-10] MEDS: oxyCODONE HCL 5MG TAB PO ONE (10:15)
[2024-11-10] MEDS ORDERED: ONDANSETRON HCL 4 MG/2 ML VIAL IV PRN (10:15)
[2024-11-10] MEDS ORDERED: HYDROmorphone HCL 2 MG/ML VL/or syr IV PRN (10:15)
[2024-11-10] MEDS ORDERED: ePHEDrine SULFATE 50 MG/ML AMP IV PRN (10:15)
--- NOTE | 2024-11-10 10:46 | DVHOP ---
DATE OF SURGERY: 11/10/2024 PREOPERATIVE DIAGNOSES: Cholelithiasis and chronic cholecystitis. POSTOPERATIVE DIAGNOSES: Cholelithiasis and chronic cholecystitis. SURGEON: Salas Omer MD ASSURANCE SENIOR: Pranav Caro. ANESTHESIA: General endotracheal. ANESTHESIOLOGIST: Titus Rhodes. PROCEDURE: Laparoscopy, laparoscopic cholecystectomy. DESCRIPTION OF PROCEDURE: Under general endotracheal anesthesia with the patient's skin prepped and draped, a supraumbilical incision was made and a Veress needle inserted by the hanging drop technique to establish pneumoperitoneum to 15 mmHg pressure by insufflation with carbon dioxide. With the abdomen fully distended, the needle was removed and replaced with a 5 mm trocar port through which a 0-degree viewing laparoscope was inserted. Under direct vision, an additional 5 and 10 mm ports were inserted through the abdominal wall at the right anterior axillary line at the level of the umbilicus and in the subxiphoid midline skin respectively. Instrumentation was introduced. Laparoscopy was performed revealing no obvious unexpected pathology on the serosal surfaces visualized. The gallbladder was distended, redundant, and doubled on itself. It was placed on tension. The cystic duct and cystic artery were identified. The structures in the portal triad were densely covered with inflammatory tissue. This was divided bluntly and sharply. The cystic duct and artery were then circumferentially dissected and skeletonized, traced into the hepaticocystic triangle so as to minimize the potential for inadvertent injury to these structures. The cystic duct and artery were divided between metallic clips placed away from the common duct, again exercising caution to minimize the potential for inadvertent injury to the common bile duct. Following division of the cystic duct and artery, the gallbladder was removed from the peritoneal cavity after being resected from its liver bed. Subhepatic space was profusely irrigated. Irrigant was aspirated. A 10 mm Tristan Montero drain was placed underneath the right lobe of the liver and exteriorized through the 5 mm port site on the patient's right flank, secured with a 2-0 nylon suture. Instrumentation was withdrawn. Pneumoperitoneum was evacuated after achieving complete hemostasis. Wounds were approximated using Monocryl sutures, Dermabond glue, and Steri-Strips. The patient remained stable throughout the procedure, left the operating room following an accurate needle and sponge count. Family was thoroughly informed by phone. Salas Omer MD PF/EDINSON TID: [id number] RECEIPT: [id number]
[2024-11-10] MEDS: MORPHINE SULFATE INJ 2 MG/ml SYRG IV PRN (11:25)
[2024-11-10 14:29] LABS: Hematocrit 29.1 % (36.0-46.0); Hemoglobin 10.1 g/dL (12.2-16.2); Mean Corpuscular Hemoglobin 36.1 pg (28.0-32.0); Mean Corpuscular Hgb Conc. 34.6 g/dL (32.0-36.0); Mean Corpuscular Volume 104.4 fL (80.0-100.0); Platelet Count (auto) 268 10^3/uL (140-450); Red Blood Cells 2.78 10^6/uL (4.0-5.20); Red Cell Distribution Width 14.4 % (11.8-14.3); White Blood Cell 10.8 10^3/uL (4.4-10.8)
[2024-11-10] MEDS: ONDANSETRON HCL 4 MG/2 ML VIAL IV PRN (14:31)
[2024-11-10 14:33] LABS: Basophils % (manual) 0 (0.0-2.0); Blast Cells 0; Eosinophils % (manual) 0 (0-7); Metamyelocytes % 0; Myelocytes % 0; Promyelocytes % 0; Reactive Lymphocytes 0
[2024-11-10 14:38] LABS: Band Neutrophils % (manual) 2; Lymphocytes % (manual) 5 (10.0-50.0); Monocytes % (manual) 2 (0-12)
[2024-11-10 14:39] LABS: Macrocytosis Slight; Platelet Estimate Adequate
[2024-11-10] MEDS: NOREPINEPHRINE 8 MG/250ML KIT 250 ML IV SCH (14:45)
[2024-11-10] MEDS: NOREPINEPHRINE 8 MG/250ML KIT 250 ML IV ONE (14:52)
[2024-11-10] MEDS: D5W/SOD CHL 0.45%/KCL 20MEQ 1,000 ML IV ONE (14:56)
[2024-11-10] MEDS: D5W/SOD CHL 0.45%/KCL 20MEQ 1,000 ML IV SCH (15:15)
[2024-11-10 15:44] LABS: INR 1.12 (0.9-1.15); Prothrombin Time 11.7 sec (9.3-11.8)
[2024-11-10] MEDS: SODIUM CHLORIDE 0.9% 500 ML IV ONE (16:47)
[2024-11-10] MEDS: MAGNESIUM SULFATE 1GM/100ML 100 ML IV SCH (20:59)
[2024-11-10] MEDS ORDERED: PPN PER PHARMACY IV NR (22:00)
--- NOTE | 2024-11-10 22:28 | DVHINCON2 ---
Date of service: Nov 10, 2024 Referring Physician Luis Fernando Cheema MD Reason for Consultation Acute hypoxic respiratory failure, chronic obstructive pulmonary disease History of Present Illness This 64-year-old woman with PMHx of hypertension and myocardial infarction presented to the ED on 11/07/24 with complaints of chest pain which was substernal, c/o some nausea and anorexia as well as epigastric pain. Patient also c/o mild shortness of breath. In the ED her chest pain was reported to be 8/10. No fever or chills. Patient stated that the chest pain was not similar to her [place] in the past. Patient was admitted for further care, and pulmonary consultation is requested for evaluation and management of acute hypoxic respiratory failure and COPD. Review of Systems: 14-point review of systems negative unless otherwise noted above. Past Medical History: Hypertension, myocardial infarction, PUD Past Surgical History: Medications: Reviewed. Allergies: No known drug allergies. Family History: No family history of premature CAD. No family history of lung disorders. Social History: Smoker. Occasional alcohol use. No illicit drug use. Family History: FH: cancer G8 MOTHER Allergies: Coded Allergies: No Known Drug Allergy (Verified Allergy, Unknown, 05/24/23) Home Meds Reported Medications Sucralfate (Carafate) 1 Gm/10 Ml Argenis, 1 GM PO, ML 11/07/24 Clopidogrel Bisulfate (CLOPIDOGREL) 75 Mg Tab, 75 MG PO DAILY for s/p cardiac stents, MG 04/16/24 Diltiazem HCl (Diltiazem HCl ER) 240 Mg Tab, 240 MG PO DAILY for htn 07/26/23 Triamterene & Hydrochlorothiaz (Maxzide) 1 Tab Tab, 1 TAB PO DAILY for htn 07/26/23 Current Medications Current Medications Medications (Trade) Dose Ordered Sig/Minal Route PRN Reason Start Time Stop Time Status Last Admin Fat Emulsion Intravenous 150 ml/Sodium Acetate 20 meq/Potassium Chloride 20 meq/ Potassium Phosphate 22 meq/ Magnesium Sulfate 16 meq/ Multivitamins 10 ml/Chromium/ Copper/Manganese/ Zinc 1 ml/Amino Acids/Dextrose/ Purified Water 2,190 ml @ 91 mls/hr Q24H4M IV 11/10/24 22:00 11/10/24 16:38 DC Ondansetron HCl (Zofran) 4 mg ONCE PRN IV NAUSEA / VOMITING 11/10/24 10:15 4/19/25 10:17 DC Naloxone HCl (Narcan) 0.4 mg Q10M PRN IV NARCOTIC REVERSAL 11/10/24 10:15 11/10/24 10:36 DC Flumazenil (Romazicon Injection) 0.2 mg ONCE PRN IV BENZODIAZEPINE REVERSAL 11/10/24 10:15 11/10/24 10:17 DC Hydralazine HCl (Apresoline Injection) 5 mg Q10M PRN IV SBP>160 11/10/24 10:15 11/10/24 11:06 DC Ephedrine Sulfate (ePHEDrine SULFATE) 10 mg Q10M PRN IV SBP LESS THAN 90 11/10/24 10:15 11/10/24 10:56 DC Fentanyl Citrate 25 mcg Q1HP PRN IV BREAKTHROUGH PAIN (7-10) 11/10/24 10:15 11/10/24 10:17 DC Hydromorphone HCl (Dilaudid Injection) 0.5 mg Q10M PRN IV SEVERE PAIN (7-10 PAIN SCALE) 11/10/24 10:15 11/10/24 10:56 DC Potassium Chloride/Dextrose/ Sod Cl 1,000 ml @ 120 mls/hr Q8H20M IV 11/10/24 14:15 11/10/24 15:15 Norepinephrine Bitartrate 250 ml @ 3.75 mls/hr Q24H IV 11/10/24 15:45 11/10/24 14:45 Magnesium Sulfate/ Dextrose 100 ml @ 100 mls/hr Q1HR IV 11/10/24 19:00 11/10/24 20:59 DC 11/10/24 22:01 Vital Signs Vital Signs Date Time Temp Pulse Resp B/P (MAP) Pulse Ox O2 Delivery O2 Flow Rate FiO2 11/10/24 21:30 86 16 164/80 (108) 100 11/10/24 20:40 98.3 98.3 11/10/24 17:38 Nasal Cannula* 2 28 Physical Exam Gen.: Patient lying in bed in no apparent distress. On supplemental oxygen. Head: Normocephalic, atraumatic. Eyes: EOMI/PERRLA. Ears: Normal hearing. Normal anatomy. Neck/trachea: Trachea midline, supple. Nose: Normal external anatomy. Mouth: Moist mucous membranes. Chest: Decreased air entry bilaterally. No wheezing or rhonchi. Cardiovascular: Positive S1, positive S2. Regular rate and rhythm. Abdomen: Positive bowel sounds in all 4 quadrants. Soft, non-tender, non- distended. : Deferred. Rectal: Deferred. Skin: Warm, dry. Intact. Extremities: 2+ radial pulses bilaterally. No lower extremity edema. Neuro: Awake, alert, oriented x3. No gross motor or sensory deficits. Cranial nerves II through XII intact. Gait not assessed. Labs/Diagnostic Data Labs Test 11/10/24 16:54 11/10/24 14:10 11/10/24 05:20 11/09/24 13:45 Range/Units POC Glucose 211 H 70-106 mg/dl White Blood Count 10.8 # 4.4-10.8 10^3/uL Red Blood Count 2.78 L 4.0-5.20 10^6/uL Hemoglobin 10.1 #L 12.2-16.2 g/dL Hematocrit 29.1 #L 36.0-46.0 % Mean Corpuscular Volume 104.4 H 80.0-100.0 fL Mean Corpuscular Hemoglobin 36.1 H 28.0-32.0 pg Mean Corpuscular Hemoglobin Concent 34.6 32.0-36.0 g/dL Red Cell Distribution Width 14.4 H 11.8-14.3 % Platelet Count 268 140-450 10^3/uL Mean Platelet Volume 6.7 L 6.9-10.8 fL Neutrophils (%) (Auto) 37.0-80.0 % Lymphocytes (%) (Auto) 10.0-50.0 % Monocytes (%) (Auto) 0.0-12.0 % Basophils (%) (Auto) 0.0-2.0 % Neutrophils # (Auto) 1.6-8.6 10 ^3/uL Lymphocytes # (Auto) 0.4-5.4 10 ^3/uL Monocytes # (Auto) 0-1.3 10 ^3/uL Differential Total Cells Counted 100.0 100 Neutrophils % (Manual) 91 H 37.0-80.0 Band Neutrophils % (Manual) 2 Lymphocytes % (Manual) 5 L 10.0-50.0 Monocytes % (Manual) 2 0-12 Eosinophils % (Manual) 0 0-7 Basophils % (Manual) 0 0.0-2.0 Metamyelocytes % (manual) 0 Myelocytes % (Manual) 0 Promyelocytes % (Manual) 0 Blast Cells % (Manual) 0 Reactive Lymphocytes 0 Platelet Estimate Adequate Macrocytosis Slight Prothrombin Time 11.7 9.3-11.8 sec Prothrombin Time INR 1.12 0.9-1.15 Sodium Level 137 136-145 mmol/L Potassium Level 3.8 3.5-5.1 mmol/L Chloride Level 105 98-107 mmol/L Carbon Dioxide Level 27 20-31 mmol/L Anion Gap 5 5-15 Blood Urea Nitrogen 9 9-23 mg/dL Creatinine 0.45 L 0.550-1.02 mg/dL Glomerular Filtration Rate Calc 108 >90 mL/min BUN/Creatinine Ratio 20.0 10.0-20.0 Serum Glucose 94 74-106 mg/dL Calcium Level 9.0 8.7-10.4 mg/dL Phosphorus Level 3.4 2.4-5.1 mg/dL Magnesium Level 1.7 1.6-2.6 mg/dL Total Bilirubin 0.8 0.2-1.0 mg/dL Aspartate Amino Transferase (AST) 15 13-40 U/L Alanine Aminotransferase (ALT) 13 7-40 U/L Alkaline Phosphatase 58 46-116 U/L Total Protein 5.8 5.7-8.2 g/dL Albumin 3.2 3.2-4.8 g/dL Activated Partial Thromboplast Time 25.3 24.5-34.5 SEC Test 11/09/24 06:50 11/08/24 15:50 11/08/24 05:49 11/07/24 15:43 Range/Units Vitamin B12 Level 702 211-911 pg/mL Thyroid Stimulating Hormone (TSH) 1.37 0.55-4.78 uIU/mL Urine Color Light-yellow Yellow Urine Clarity Clear Clear Urine pH 7.5 5.0-9.0 Urine Specific [place] 1.010 1.001-1.035 Urine Protein Negative Negative Urine Ketones Negative Negative Urine Blood Negative Negative /uL Urine Nitrite Negative Negative Urine Bilirubin Negative Negative Urine Urobilinogen 3 H Negative mg/dL Urine Leukocyte Esterase Negative Negative /uL Urine RBC None seen 0 - 4 /hpf Urine Microscopic WBC < 1 0-5 /HPF Urine Squamous Epithelial Cells Few <5 /hpf Urine Bacteria None seen None Seen /hpf Urine Glucose Normal Normal mg/dL Triglycerides Level 47 < 150 mg/dL Troponin I High Sensitivity 12 </=34 ng/L Test 11/07/24 12:02 Range/Units Eosinophils (%) (Auto) 0.2 0.0-7.0 % Eosinophils # (Auto) 0 0-0.8 10 ^3/uL Basophils # (Auto) 0.1 0-0.2 10 ^3/uL Nucleated Red Blood Cells 0.2 % D-Dimer, Quantitative 3.28 H 0.0-0.49 mg/L FEU B-Type Natriuretic Peptide 47.23 0-100 pg/mL Assessment Impression: Acute hypoxic respiratory failure Chronic obstructive pulmonary disease Hypertension Cachexia Hx of nicotine dependence CAD, s/p PTCA Plan: Supplemental oxygen Titrate to keep O2 sats above 92%. Head of bed elevation Aspiration precautions Pain control Avoid oversedation Continue TPN for nutritional support s/p lap mercedes. Surgery recs appreciated. Incentive spirometry Plan for 1 unit PRBC Monitor hemoglobin IV fluids at 120 ml/hr. Monitor renal function. Monitor electrolytes. Supplement as necessary. K, mag supplementation Monitor ins and outs. DVT prophylaxis. Prognosis: Poor given patient's multiple co-morbidities. Condition: Critical Rest of plan per hospitalist and other consultants. A total of 35 minutes of critical care time was spent reviewing the patient record, examining the patient, making a diagnostic and therapeutic plan, discussing this plan with the medical personnel, following up on diagnostic studies and following the patient for clinical stability excluding any and all procedures. At least 50% of this time was spent in direct, [id number] contact. Thank you Dr. Gould for allowing me to participate in this patient's care. Further recommendations will depend on the patient's clinical course. Please do not hesitate to contact me if you have any questions or concerns. This medical document was created using an electronic medical record system with [employer] dictation system. Although these documentations are being carefully reviewed, there may still be some phonetic and typographical changes. The errors are purely typographical, due to imperfection on the software program, and do not reflect any compromise in the patient's medical care. Plan discussed with: Other (ANNETTA Lama/Dr. Gould) TONY PINEDA MD Nov 10, 2024 22:28
[2024-11-11] VITALS (38 sets, daily range): BP systolic 118–171; BP diastolic 55–90; PULSE 74–105; RESP 12–29; TEMP 98.2–99.1; O2SAT 92–100
[2024-11-11 00:27] LABS: Hematocrit 33.8 % (36.0-46.0); Hemoglobin 11.3 g/dL (12.2-16.2)
[2024-11-11] MEDS: cloNIDine 0.2 mg/24hr 7DAY PATCH TD SCH (00:50)
[2024-11-11 04:09] LABS: Basophils # (auto) 0 10 ^3/uL (0-0.2); Basophils % (auto) 0.1 % (0.0-2.0); Eosinophils # (auto) 0 10 ^3/uL (0-0.8); Hemoglobin 11.8 g/dL (12.2-16.2); Lymphocytes # (auto) 0.4 10 ^3/uL (0.4-5.4); Lymphocytes % (auto) 3.6 % (10.0-50.0); Mean Corpuscular Hemoglobin 33.6 pg (28.0-32.0); Mean Corpuscular Hgb Conc. 33.7 g/dL (32.0-36.0); Mean Corpuscular Volume 99.7 fL (80.0-100.0); Monocytes # (auto) 0.6 10 ^3/uL (0-1.3); Monocytes % (auto) 5.3 % (0.0-12.0); Neutrophils # (auto) 10.8 10 ^3/uL (1.6-8.6); Nucleated Red Blood Cells % 0.1 %; Platelet Count (auto) 207 10^3/uL (140-450); Red Blood Cells 3.51 10^6/uL (4.0-5.20); Red Cell Distribution Width 18.6 % (11.8-14.3); White Blood Cell 11.9 10^3/uL (4.4-10.8)
[2024-11-11 04:25] LABS: Alanine Aminotransferase 34 U/L (7-40); Alkaline Phosphatase 62 U/L (46-116); Anion Gap 7 (5-15); Bilirubin, Total 0.8 mg/dL (0.2-1.0); Blood Urea Nitrogen 11 mg/dL (9-23); Chloride 105 mmol/L (98-107); Magnesium 2.2 mg/dL (1.6-2.6); Potassium 4.7 mmol/L (3.5-5.1)
[2024-11-11 04:27] LABS: Albumin 3.1 g/dL (3.2-4.8); Aspartate Aminotransferase 53 U/L (13-40); Calcium 8.9 mg/dL (8.7-10.4); Carbon Dioxide 19 mmol/L (20-31); Glucose 113 mg/dL (74-106); Sodium 131 mmol/L (136-145); Total Protein 5.6 g/dL (5.7-8.2)
--- NOTE | 2024-11-11 10:23 | DVHPN2 ---
Progress Note Date Seen: Nov 11, 2024 Medical Necessity Reason Pt with a Central, PICC or Fol: No Objective vital signs Vital Sign Date Time Temp Pulse Resp B/P (MAP) Pulse Ox O2 Delivery O2 Flow Rate FiO2 11/11/24 09:44 18 96 Nasal Cannula* 2 28 11/11/24 09:30 89 148/71 (96) 11/11/24 08:30 99.1 99.1 Total Intake and Output 11/10/24 11/10/24 11/11/24 15:00 23:00 07:00 Intake Total 586.75 ml 1279 ml 1160 ml Output Total 705 ml 360 ml 400 ml Balance -118.25 ml 919 ml 760 ml medications Current Medications Medications Dose Ordered Sig/Minal Route Start Time Stop Time Status Last Admin Dose Admin Nitroglycerin 0.4 mg Q5MINP PRN SL 11/07/24 13:15 Morphine Sulfate 2 mg Q30M PRN IV 11/07/24 13:15 11/10/24 19:39 2 MG Megestrol Acetate 400 mg DAILY PO 11/08/24 10:00 11/10/24 11:23 400 MG Enteral Nutritional Formula 240 ml TIDWM PO 11/07/24 18:00 11/11/24 08:00 240 ML Diagnostic Test (Pha) 1 strip Q6HR 11/07/24 18:00 11/11/24 06:04 1 STRIP Insulin Human Regular FOLLOW SLIDING SCALE Q6HR SC 11/07/24 18:00 11/10/24 23:20 4 UNITS Dextrose 50 ml UD IV 11/07/24 14:30 Diltiazem HCl 180 mg DAILY PO 11/09/24 10:00 11/10/24 11:23 180 MG Morphine Sulfate 1 mg Q4HP PRN IV 11/08/24 15:00 11/11/24 06:57 1 MG Acetaminophen/ Hydrocodone Bitart 1 tab Q6HPRN PRN PO 11/08/24 15:00 11/09/24 18:10 1 TAB Acetaminophen 650 mg Q6HP PRN PO 11/08/24 15:00 Pantoprazole Sodium 40 mg DAILY IV 11/09/24 10:00 11/10/24 11:23 40 MG Ondansetron HCl 4 mg Q6HPRN PRN IV 11/08/24 15:00 11/11/24 02:12 4 MG Potassium Chloride/Dextrose/ Sod Cl 1,000 ml @ 120 mls/hr Q8H20M IV 11/10/24 14:15 11/11/24 07:52 120 MLS/HR Norepinephrine Bitartrate 250 ml @ 3.75 mls/hr Q24H IV 11/10/24 15:45 11/10/24 14:45 3.75 MLS/HR Clonidine HCl 0.2 mg Q7D TD 11/11/24 00:45 11/11/24 00:50 0.2 MG laboratory and microbiology Laboratory Tests 11/11/24 03:06 Test 11/11/24 03:06 Range/Units Serum Glucose 113 H 74-106 mg/dL Problem List/Assessment/Plan Problem List/Assessment/Plan 11/09/24 SPOKE TO PRIMARY md WHO CLEARED THE PATIENT FOR OPERATION FROM CARDIAC POINT OF VIEW, hE AGREES WITH [PROCEEDING WITH CHOLECYSTECTOMY, OPERATION, RISKS AND COMPLICATIONS EXPLAINED TO PATIENT IN DETAIL 11/11/24 STATES SHE FEELS BETTER, RECEIVED TRANSFUSION, WOUNDS CLEAN AND WELL APPROXIMATED, ABDOMEN APPROPRIATELY TENDER, LABS OK,WILL TRANSFER TO [facility] AND ALLOW PO FULL LIQUIDS Plan discussed with: Patient Dietary Evaluation Review Comments: 1. Current nutrition support of combined Clinimix plus TPN is providing a total 95 g Protein, 1160 kcal. supporting pt's needs at 130% pro. and 76% energy in Kcal. Pt weights 54.5 kg on bedscale this afternoon. noted a 5kg gain from yester. 2. Advance diet to regular texture as tolerated after ther gallblader surgery as medically feasible. 3. Quick smoking/tobacco use. Expected Outcomes/Goals: gradual weight gain, HECTOR BALLARD MD Nov 11, 2024 10:23
--- NOTE | 2024-11-11 23:57 | DVHPN2 ---
Progress Note - Dictate Date Seen: Nov 11, 2024 Medical Necessity Reason Pt with a Central, PICC or Fol: No Subjective Patient seen and examined at bedside. Remains on supplemental oxygen Overnight events reviewed. vital signs Vital Sign Date Time Temp Pulse Resp B/P (MAP) Pulse Ox O2 Delivery O2 Flow Rate FiO2 11/11/24 21:00 98.2 74 18 118/55 (76) 92 98.2 11/11/24 13:42 Nasal Cannula* 2 28 Total Intake and Output 11/10/24 11/10/24 11/11/24 15:00 23:00 07:00 Intake Total 586.75 ml 1279 ml 1160 ml Output Total 705 ml 360 ml 400 ml Balance -118.25 ml 919 ml 760 ml medications Current Medications Medications Dose Ordered Sig/Minal Route Start Time Stop Time Status Last Admin Dose Admin Nitroglycerin 0.4 mg Q5MINP PRN SL 11/07/24 13:15 Morphine Sulfate 2 mg Q30M PRN IV 11/07/24 13:15 11/10/24 19:39 2 MG Megestrol Acetate 400 mg DAILY PO 11/08/24 10:00 11/11/24 11:56 400 MG Enteral Nutritional Formula 240 ml TIDWM PO 11/07/24 18:00 11/11/24 17:37 240 ML Diagnostic Test (Pha) 1 strip Q6HR 11/07/24 18:00 11/11/24 11:50 1 STRIP Insulin Human Regular FOLLOW SLIDING SCALE Q6HR SC 11/07/24 18:00 11/10/24 23:20 4 UNITS Dextrose 50 ml UD IV 11/07/24 14:30 Diltiazem HCl 180 mg DAILY PO 11/09/24 10:00 11/11/24 11:56 180 MG Morphine Sulfate 1 mg Q4HP PRN IV 11/08/24 15:00 11/11/24 06:57 1 MG Acetaminophen/ Hydrocodone Bitart 1 tab Q6HPRN PRN PO 11/08/24 15:00 11/11/24 20:26 1 TAB Acetaminophen 650 mg Q6HP PRN PO 11/08/24 15:00 Pantoprazole Sodium 40 mg DAILY IV 11/09/24 10:00 11/11/24 10:44 40 MG Ondansetron HCl 4 mg Q6HPRN PRN IV 11/08/24 15:00 11/11/24 13:17 4 MG Potassium Chloride/Dextrose/ Sod Cl 1,000 ml @ 120 mls/hr Q8H20M IV 11/10/24 14:15 11/11/24 13:17 120 MLS/HR Clonidine HCl 0.2 mg Q7D TD 11/11/24 00:45 11/11/24 00:50 0.2 MG objective Gen.: Patient lying in bed in no apparent distress. On supplemental oxygen. Head: Normocephalic, atraumatic. Eyes: EOMI/PERRLA. Ears: Normal hearing. Normal anatomy. Neck/trachea: Trachea midline, supple. Nose: Normal external anatomy. Mouth: Moist mucous membranes. Chest: Decreased air entry bilaterally. No wheezing or rhonchi. Cardiovascular: Positive S1, positive S2. Regular rate and rhythm. Abdomen: Positive bowel sounds in all 4 quadrants. Soft, non-tender, non- distended. : Deferred. Rectal: Deferred. Skin: Warm, dry. Intact. Extremities: 2+ radial pulses bilaterally. No lower extremity edema. Neuro: Awake, alert, oriented x3. No gross motor or sensory deficits. Cranial nerves II through XII intact. Gait not assessed. laboratory and microbiology Laboratory Tests 11/11/24 03:06 Test 11/11/24 03:06 Range/Units Serum Glucose 113 H 74-106 mg/dL Assessment/Plan Impression: Acute hypoxic respiratory failure Chronic obstructive pulmonary disease Hypertension Cachexia Hx of nicotine dependence CAD, s/p PTCA Events: Remains on supplemental oxygen, 2 LPM NC Taper O2 as tolerated Continue TPN for nutritional support Pain control Avoid oversedation Incentive spirometry Monitor hemoglobin Surgery recs appreciated. Protonix for GI prophylaxis Labs and imaging reviewed. Rest of plan as noted below. Plan: Supplemental oxygen Titrate to keep O2 sats above 92%. Head of bed elevation Aspiration precautions Pain control Avoid oversedation Continue TPN for nutritional support s/p lap mercedes. Surgery recs appreciated. Incentive spirometry S/p PRBC transfusion Monitor hemoglobin Monitor renal function. Monitor electrolytes. Supplement as necessary. Monitor ins and outs. GI/DVT prophylaxis. Prognosis: Poor given patient's multiple co-morbidities. Rest of plan per hospitalist and other consultants. Thank you Dr. Gould for allowing me to participate in this patient's care. Further recommendations will depend on the patient's clinical course. Please do not hesitate to contact me if you have any questions or concerns. This medical document was created using an electronic medical record system with [employer] dictation system. Although these documentations are being carefully reviewed, there may still be some phonetic and typographical changes. The errors are purely typographical, due to imperfection on the software program, and do not reflect any compromise in the patient's medical care. Dietary Evaluation Review Comments: 1. Current nutrition support of combined Clinimix plus TPN is providing a total 95 g Protein, 1160 kcal. supporting pt's needs at 130% pro. and 76% energy in Kcal. Pt weights 54.5 kg on bedscale this afternoon. noted a 5kg gain from yester. 2. Advance diet to regular texture as tolerated after ther gallblader surgery as medically feasible. 3. Quick smoking/tobacco use. Expected Outcomes/Goals: gradual weight gain, Plan discussed with: Patient, Other (RN) TONY PINEDA MD Nov 11, 2024 23:57
[2024-11-12] VITALS (9 sets, daily range): BP systolic 106–129; BP diastolic 58–69; PULSE 70–95; RESP 16–20; TEMP 98.1–98.8; O2SAT 92–99
--- NOTE | 2024-11-12 08:57 | DVHPN2 ---
Progress Note - Dictate Date Seen: Nov 11, 2024 Medical Necessity Reason Pt with a Central, PICC or Fol: No Subjective ACCELERATED WEIGHT LOSS DYSPHAGIA MELENA S/P COLONOSCOPY REPORTED TO BE NEGATIVE HX OF TOBACCO USE CACHEXIA COPD HTN HX OF LGI BLEED ISCHEMIC COLITIS HX OF CAD S/P PTCA STENT RCA PTCA OF PDA vital signs Vital Sign Date Time Temp Pulse Resp B/P (MAP) Pulse Ox O2 Delivery O2 Flow Rate FiO2 11/12/24 07:41 78 18 92 Room Air* 2 N/A Nasal Cannula* 11/12/24 05:00 98.2 106/58 (74) 98.2 Total Intake and Output 11/11/24 11/11/24 11/12/24 15:00 23:00 07:00 Intake Total 1160 ml 680 ml Output Total 750 ml Balance 410 ml 680 ml medications Current Medications Medications Dose Ordered Sig/Minal Route Start Time Stop Time Status Last Admin Dose Admin Nitroglycerin 0.4 mg Q5MINP PRN SL 11/07/24 13:15 Morphine Sulfate 2 mg Q30M PRN IV 11/07/24 13:15 11/10/24 19:39 2 MG Megestrol Acetate 400 mg DAILY PO 11/08/24 10:00 11/11/24 11:56 400 MG Enteral Nutritional Formula 240 ml TIDWM PO 11/07/24 18:00 11/11/24 17:37 240 ML Diagnostic Test (Pha) 1 strip Q6HR 11/07/24 18:00 11/12/24 06:00 1 STRIP Insulin Human Regular FOLLOW SLIDING SCALE Q6HR SC 11/07/24 18:00 11/10/24 23:20 4 UNITS Dextrose 50 ml UD IV 11/07/24 14:30 Diltiazem HCl 180 mg DAILY PO 11/09/24 10:00 11/11/24 11:56 180 MG Morphine Sulfate 1 mg Q4HP PRN IV 11/08/24 15:00 11/11/24 06:57 1 MG Acetaminophen/ Hydrocodone Bitart 1 tab Q6HPRN PRN PO 11/08/24 15:00 11/11/24 20:26 1 TAB Acetaminophen 650 mg Q6HP PRN PO 11/08/24 15:00 Pantoprazole Sodium 40 mg DAILY IV 11/09/24 10:00 11/11/24 10:44 40 MG Ondansetron HCl 4 mg Q6HPRN PRN IV 11/08/24 15:00 11/11/24 13:17 4 MG Potassium Chloride/Dextrose/ Sod Cl 1,000 ml @ 120 mls/hr Q8H20M IV 11/10/24 14:15 11/11/24 13:17 120 MLS/HR Clonidine HCl 0.2 mg Q7D TD 11/11/24 00:45 11/11/24 00:50 0.2 MG laboratory and microbiology Laboratory Tests 11/11/24 03:06 Test 11/11/24 03:06 Range/Units Serum Glucose 113 H 74-106 mg/dL Problem List ACCELERATED WEIGHT LOSS DYSPHAGIA MELENA S/P COLONOSCOPY REPORTED TO BE NEGATIVE HX OF TOBACCO USE CACHEXIA COPD HTN HX OF LGI BLEED ISCHEMIC COLITIS HX OF CAD S/P PTCA STENT RCA PTCA OF PDA Assessment/Plan MRI WITH CONTRAST GALLBLADDER SLUDGE SURGICAL CONSULT PT MAY PROCEED WITH SURGERY ASA II NEEDS CHOLECYSTECTOMY S/P LAP ESTHELA INITIALLY WITH POST OP BLEEDING STBALE S/P 1 UNIT PRBC H/H/ STABLE NO FURTHER BLEEDING NOW STABLE PT Dietary Evaluation Review Comments: 1. Current nutrition support of combined Clinimix plus TPN is providing a total 95 g Protein, 1160 kcal. supporting pt's needs at 130% pro. and 76% energy in Kcal. Pt weights 54.5 kg on bedscale this afternoon. noted a 5kg gain from yester. 2. Advance diet to regular texture as tolerated after ther gallblader surgery as medically feasible. 3. Quick smoking/tobacco use. Expected Outcomes/Goals: gradual weight gain, Plan discussed with: Patient Critical Care Time(min): 34 OFELIA OCHOA MD Nov 12, 2024 08:57
[2024-11-12] MEDS: SODIUM CHLORIDE 0.9% 1,000 ML IV SCH (09:00)
--- NOTE | 2024-11-12 09:00 | DVHPN2 ---
Progress Note - Dictate Date Seen: Nov 12, 2024 Medical Necessity Reason Pt with a Central, PICC or Fol: No Subjective ACCELERATED WEIGHT LOSS DYSPHAGIA MELENA S/P COLONOSCOPY REPORTED TO BE NEGATIVE HX OF TOBACCO USE CACHEXIA COPD HTN HX OF LGI BLEED ISCHEMIC COLITIS HX OF CAD S/P PTCA STENT RCA PTCA OF PDA vital signs Vital Sign Date Time Temp Pulse Resp B/P (MAP) Pulse Ox O2 Delivery O2 Flow Rate FiO2 11/12/24 07:41 78 18 92 Room Air* 2 N/A Nasal Cannula* 11/12/24 05:00 98.2 106/58 (74) 98.2 Total Intake and Output 11/11/24 11/11/24 11/12/24 15:00 23:00 07:00 Intake Total 1160 ml 680 ml Output Total 750 ml Balance 410 ml 680 ml medications Current Medications Medications Dose Ordered Sig/Minal Route Start Time Stop Time Status Last Admin Dose Admin Nitroglycerin 0.4 mg Q5MINP PRN SL 11/07/24 13:15 Morphine Sulfate 2 mg Q30M PRN IV 11/07/24 13:15 11/10/24 19:39 2 MG Megestrol Acetate 400 mg DAILY PO 11/08/24 10:00 11/11/24 11:56 400 MG Enteral Nutritional Formula 240 ml TIDWM PO 11/07/24 18:00 11/11/24 17:37 240 ML Diagnostic Test (Pha) 1 strip Q6HR 11/07/24 18:00 11/12/24 06:00 1 STRIP Insulin Human Regular FOLLOW SLIDING SCALE Q6HR SC 11/07/24 18:00 11/10/24 23:20 4 UNITS Dextrose 50 ml UD IV 11/07/24 14:30 Diltiazem HCl 180 mg DAILY PO 11/09/24 10:00 11/11/24 11:56 180 MG Morphine Sulfate 1 mg Q4HP PRN IV 11/08/24 15:00 11/11/24 06:57 1 MG Acetaminophen/ Hydrocodone Bitart 1 tab Q6HPRN PRN PO 11/08/24 15:00 11/11/24 20:26 1 TAB Acetaminophen 650 mg Q6HP PRN PO 11/08/24 15:00 Pantoprazole Sodium 40 mg DAILY IV 11/09/24 10:00 11/11/24 10:44 40 MG Ondansetron HCl 4 mg Q6HPRN PRN IV 11/08/24 15:00 11/11/24 13:17 4 MG Potassium Chloride/Dextrose/ Sod Cl 1,000 ml @ 120 mls/hr Q8H20M IV 11/10/24 14:15 11/11/24 13:17 120 MLS/HR Clonidine HCl 0.2 mg Q7D TD 11/11/24 00:45 11/11/24 00:50 0.2 MG laboratory and microbiology Laboratory Tests 11/11/24 03:06 Test 11/11/24 03:06 Range/Units Serum Glucose 113 H 74-106 mg/dL Problem List ACCELERATED WEIGHT LOSS DYSPHAGIA MELENA S/P COLONOSCOPY REPORTED TO BE NEGATIVE HX OF TOBACCO USE CACHEXIA COPD HTN HX OF LGI BLEED ISCHEMIC COLITIS HX OF CAD S/P PTCA STENT RCA PTCA OF PDA Assessment/Plan MRI WITH CONTRAST GALLBLADDER SLUDGE SURGICAL CONSULT PT MAY PROCEED WITH SURGERY ASA II NEEDS CHOLECYSTECTOMY S/P LAP ESTHELA INITIALLY WITH POST OP BLEEDING STBALE S/P 1 UNIT PRBC H/H/ STABLE NO FURTHER BLEEDING NOW STABLE PT STARTED ON CLONIDINE FOR HTN BP STABLE HYPONATREMIA LEUKOCYTOSIS START ABX CHANGE IV TO NS Dietary Evaluation Review Comments: 1. Current nutrition support of combined Clinimix plus TPN is providing a total 95 g Protein, 1160 kcal. supporting pt's needs at 130% pro. and 76% energy in Kcal. Pt weights 54.5 kg on bedscale this afternoon. noted a 5kg gain from yester. 2. Advance diet to regular texture as tolerated after ther gallblader surgery as medically feasible. 3. Quick smoking/tobacco use. Expected Outcomes/Goals: gradual weight gain, Plan discussed with: Patient Critical Care Time(min): 35 OFELIA OCHOA MD Nov 12, 2024 09:00
--- NOTE | 2024-11-12 10:59 | DVHPN2 ---
Progress Note Date Seen: Nov 12, 2024 Medical Necessity Reason Pt with a Central, PICC or Fol: Yes The following are medically ne: Barclay Catheter Reason for barclay catheter: Strict I&O Subjective Patient reports: No new complaints Review of Systems: HEENT:Normal, CVS:Normal, RESPIRATORY:Normal, GI:Normal, :Normal, MSK:Normal, NEURO:Normal Objective vital signs Vital Sign Date Time Temp Pulse Resp B/P (MAP) Pulse Ox O2 Delivery O2 Flow Rate FiO2 11/12/24 09:34 62 112/57 11/12/24 08:54 98.8 16 97 98.8 11/12/24 07:41 Room Air* 2 N/A Nasal Cannula* Total Intake and Output 11/11/24 11/11/24 11/12/24 15:00 23:00 07:00 Intake Total 1160 ml 680 ml Output Total 750 ml Balance 410 ml 680 ml medications Current Medications Medications Dose Ordered Sig/Minal Route Start Time Stop Time Status Last Admin Dose Admin Nitroglycerin 0.4 mg Q5MINP PRN SL 11/07/24 13:15 Morphine Sulfate 2 mg Q30M PRN IV 11/07/24 13:15 11/10/24 19:39 2 MG Enteral Nutritional Formula 240 ml TIDWM PO 11/07/24 18:00 11/12/24 08:00 240 ML Diagnostic Test (Pha) 1 strip Q6HR 11/07/24 18:00 11/12/24 06:00 1 STRIP Insulin Human Regular FOLLOW SLIDING SCALE Q6HR SC 11/07/24 18:00 11/10/24 23:20 4 UNITS Dextrose 50 ml UD IV 11/07/24 14:30 Diltiazem HCl 180 mg DAILY PO 11/09/24 10:00 11/12/24 09:34 180 MG Morphine Sulfate 1 mg Q4HP PRN IV 11/08/24 15:00 11/11/24 06:57 1 MG Acetaminophen/ Hydrocodone Bitart 1 tab Q6HPRN PRN PO 11/08/24 15:00 11/12/24 09:32 1 TAB Acetaminophen 650 mg Q6HP PRN PO 11/08/24 15:00 Pantoprazole Sodium 40 mg DAILY IV 11/09/24 10:00 11/11/24 10:44 40 MG Ondansetron HCl 4 mg Q6HPRN PRN IV 11/08/24 15:00 11/11/24 13:17 4 MG Clonidine HCl 0.2 mg Q7D TD 11/11/24 00:45 11/11/24 00:50 0.2 MG Piperacillin Sod/ Tazobactam Sod 100 ml @ 25 mls/hr Q6HR IV 11/12/24 12:00 UNV Sodium Chloride 1,000 ml @ 60 mls/hr [id number] IV 11/12/24 09:00 UNV Examination: GENERAL:Normal, HEENT:Normal, NECK:Normal, LUNGS:Normal, CVS:Normal, ABDOMEN:Normal, ABDOMEN:Abnormal (CATERINA DRAIN), MSK:Normal, SKIN:Normal, NEURO:Normal, :Normal laboratory and microbiology Laboratory Tests 11/11/24 03:06 Test 11/11/24 03:06 Range/Units Serum Glucose 113 H 74-106 mg/dL Microbiology Date/Time Source Procedure Growth Status 11/10/24 15:20 Urine - [place] Urine Culture - Preliminary Resulted 11/10/24 13:20 Nose MRSA Screen - Final Complete Problem List/Assessment/Plan Problem List/Assessment/Plan #1 wt loss ?acute mercedes: s/p surg #2 htn #3 cad s/p ptca #4 copd #5 tobacco abuse: advised to quit, refused nicotine patch- time spent 11 mins #6 right leg pain/ right leg dvt: lovenox, dc megace #7 elevated mcv: b12 ,tsh #8 hypokalemia: replace #9 acute resp failure #10 copd advance care planning- full code- time spent 19 mins Plan discussed with: Patient My Orders My Orders Orders - ERNESTINE CENTENO MD Procedure Category Date Status Time Mechanical Soft Diet DIET 11/12/24 Transmitted Lunch Enoxaparin Sodium PHA 11/12/24 Transmitted (Lovenox) 11:00 Enoxaparin Sodium PHA 11/12/24 Transmitted (Lovenox) 22:00 Pt Request For Service PT 11/12/24 Logged 10:50 Comprehensive LAB 11/13/24 Verified Metabolic Panel 06:00 Complete Blood Count LAB 11/13/24 Verified 06:00 Chest Portable XY 11/13/24 Logged 06:00 Dietary Evaluation Review Comments: 1. Current nutrition support of combined Clinimix plus TPN is providing a total 95 g Protein, 1160 kcal. supporting pt's needs at 130% pro. and 76% energy in Kcal. Pt weights 54.5 kg on bedscale this afternoon. noted a 5kg gain from yester. 2. Advance diet to regular texture as tolerated after ther gallblader surgery as medically feasible. 3. Quick smoking/tobacco use. Expected Outcomes/Goals: gradual weight gain, Date of Service: Nov 12, 2024 Billing Provider: ERNESTINE CENTENO MD Common Visit Codes: [id number] INP/OBS CARE(HIGH) ERNESTINE CENTENO MD Nov 12, 2024 10:58
--- NOTE | 2024-11-12 11:58 | DVHPN2 ---
Subjective Date Seen: Nov 12, 2024 Post op day Post op day: 2 Patient reports: No new complaints Nursing reports: No new complaints General: Normal HNT: Normal Cardiovascular: Normal Respiratory: Normal Gastrointestinal: Normal Genitourinary: Normal Musculoskeletal: Normal Neurological: Normal Objective Vitals Vital Sign Date Time Temp Pulse Resp B/P (MAP) Pulse Ox O2 Delivery O2 Flow Rate FiO2 11/12/24 09:34 62 112/57 11/12/24 08:54 98.8 16 97 98.8 11/12/24 07:41 Room Air* 2 N/A Nasal Cannula* Total Intake and Output 11/11/24 11/11/24 11/12/24 14:59 22:59 06:59 Intake Total 1160 ml 800 ml Output Total 750 ml Balance 410 ml 800 ml Medications Current Medications Medications Dose Ordered Sig/Minal Route Start Time Stop Time Status Last Admin Dose Admin Nitroglycerin 0.4 mg Q5MINP PRN SL 11/07/24 13:15 Morphine Sulfate 2 mg Q30M PRN IV 11/07/24 13:15 11/10/24 19:39 2 MG Enteral Nutritional Formula 240 ml TIDWM PO 11/07/24 18:00 11/12/24 08:00 240 ML Diagnostic Test (Pha) 1 strip Q6HR 11/07/24 18:00 11/12/24 06:00 1 STRIP Insulin Human Regular FOLLOW SLIDING SCALE Q6HR SC 11/07/24 18:00 11/10/24 23:20 4 UNITS Dextrose 50 ml UD IV 11/07/24 14:30 Diltiazem HCl 180 mg DAILY PO 11/09/24 10:00 11/12/24 09:34 180 MG Morphine Sulfate 1 mg Q4HP PRN IV 11/08/24 15:00 11/11/24 06:57 1 MG Acetaminophen/ Hydrocodone Bitart 1 tab Q6HPRN PRN PO 11/08/24 15:00 11/12/24 09:32 1 TAB Acetaminophen 650 mg Q6HP PRN PO 11/08/24 15:00 Pantoprazole Sodium 40 mg DAILY IV 11/09/24 10:00 11/11/24 10:44 40 MG Ondansetron HCl 4 mg Q6HPRN PRN IV 11/08/24 15:00 11/11/24 13:17 4 MG Clonidine HCl 0.2 mg Q7D TD 11/11/24 00:45 11/11/24 00:50 0.2 MG Piperacillin Sod/ Tazobactam Sod 100 ml @ 25 mls/hr Q6HR IV 11/12/24 12:00 Sodium Chloride 1,000 ml @ 60 mls/hr [id number] IV 11/12/24 09:00 Enoxaparin Sodium 60 mg Q12HR SC 11/12/24 22:00 UNV General: Normal, Well developed, Well nourished Head/Eyes: Normal ENT: Normal Neck: Normal Lungs: Normal Cardiovascular: Normal Abdominal: Soft, Non tender, Other (CATERINA drain) Musculoskeletal: Normal Extremities: Normal Labs and Microbiology Laboratory Tests 11/11/24 03:06 Test 11/11/24 03:06 Range/Units Serum Glucose 113 H 74-106 mg/dL Ass/Plan Labs and/or images reviewed: Labs reviewed by me Problem List #1 wt loss ?acute mercedes: s/p surg #2 htn #3 cad s/p ptca #4 copd #5 tobacco abuse: advised to quit, refused nicotine patch- time spent 11 mins #6 right leg pain/ right leg dvt: lovenox, dc megace #7 elevated mcv: b12 ,tsh #8 hypokalemia: replace #9 acute resp failure #10 copd advance care planning- full code- time spent 19 mins Problems(with codes): (1) S/P cholecystectomy Assessment/Plan s/p laparoscopic cholecystectomy POD #2 abdomen soft, non distended, appropriately tender denies nausea or vomiting Plan: patient to ambulate if tolerating diet ok to advance Prognosis: Good Plan discussed with patient, Dr. Omer Visit Coding Surgery Date of Service if different f: Nov 12, 2024 Billing Provider: COLBY DE LEON Surgery Visit Codes: [id number] INP/OBS CARE(HIGH) SULEMA DIAZ COMPENSATION DIRECTOR Nov 12, 2024 11:58
[2024-11-12] MEDS ORDERED: PIPERACILLIN-TAZOB 3.375GM 100 ML IV SCH (12:00)
[2024-11-12] MEDS: ENOXAPARIN SOD 60 MG/0.6 ML SYRINGE SC ONE (15:15)
[2024-11-12] MEDS: PIPERACILLIN-TAZOB 3.375GM 100 ML IV SCH (15:16)
[2024-11-12] MEDS: ENOXAPARIN SOD 60 MG/0.6 ML SYRINGE SC SCH (21:06)
[2024-11-13] VITALS (15 sets, daily range): BP systolic 25–144; BP diastolic 63–74; PULSE 91–106; RESP 14–24; TEMP 98–99.2; O2SAT 93–100
[2024-11-13 07:04] LABS: Basophils # (auto) 0 10 ^3/uL (0-0.2); Eosinophils # (auto) 0 10 ^3/uL (0-0.8); Hemoglobin 9.6 g/dL (12.2-16.2); Lymphocytes # (auto) 1.3 10 ^3/uL (0.4-5.4); Monocytes # (auto) 0.9 10 ^3/uL (0-1.3)
[2024-11-13 07:06] LABS: Basophils % (auto) 0.2 % (0.0-2.0); Eosinophils % (auto) 0.1 % (0.0-7.0); Lymphocytes % (auto) 14.8 % (10.0-50.0); Mean Corpuscular Hemoglobin 33.9 pg (28.0-32.0); Mean Corpuscular Hgb Conc. 34.2 g/dL (32.0-36.0); Mean Corpuscular Volume 98.9 fL (80.0-100.0); Monocytes % (auto) 10.5 % (0.0-12.0); Neutrophils # (auto) 6.4 10 ^3/uL (1.6-8.6); Neutrophils % (auto) 74.4 % (37.0-80.0); Platelet Count (auto) 208 10^3/uL (140-450); Red Blood Cells 2.83 10^6/uL (4.0-5.20); Red Cell Distribution Width 17.6 % (11.8-14.3); White Blood Cell 8.6 10^3/uL (4.4-10.8)
[2024-11-13 07:14] LABS: Alanine Aminotransferase 28 U/L (7-40); Alkaline Phosphatase 61 U/L (46-116); Anion Gap 6 (5-15); Aspartate Aminotransferase 28 U/L (13-40); BUN/Creatinine Ratio 21.1 (10.0-20.0); Bilirubin, Total 1.2 mg/dL (0.2-1.0); Calcium 9.2 mg/dL (8.7-10.4); Carbon Dioxide 26 mmol/L (20-31); Chloride 100 mmol/L (98-107); Glucose 76 mg/dL (74-106); Potassium 4.1 mmol/L (3.5-5.1)
[2024-11-13 07:15] LABS: Blood Urea Nitrogen 8 mg/dL (9-23); Sodium 132 mmol/L (136-145); Total Protein 5.3 g/dL (5.7-8.2)
--- NOTE | 2024-11-13 07:32 | DVH ---
EXAM: XR Chest, 1 View CLINICAL INDICATION: cad TECHNIQUE: Frontal view of the chest. COMPARISON: None FINDINGS: LUNGS AND PLEURAL SPACES: Bibasilar atelectasis or pneumonia. No pneumothorax. HEART: Unremarkable. No cardiomegaly. MEDIASTINUM: Unremarkable. Normal mediastinal contour. BONES/JOINTS: Unremarkable. No acute fracture. OTHER FINDINGS: . . . IMPRESSION: Bibasilar atelectasis or pneumonia.
--- NOTE | 2024-11-13 08:39 | DVHPN2 ---
Progress Note - Dictate Date Seen: Nov 13, 2024 Medical Necessity Reason Pt with a Central, PICC or Fol: Yes The following are medically ne: Barclay Catheter Reason for barclay catheter: Strict I&O Subjective ACCELERATED WEIGHT LOSS DYSPHAGIA MELENA S/P COLONOSCOPY REPORTED TO BE NEGATIVE HX OF TOBACCO USE CACHEXIA COPD HTN HX OF LGI BLEED ISCHEMIC COLITIS HX OF CAD S/P PTCA STENT RCA PTCA OF PDA vital signs Vital Sign Date Time Temp Pulse Resp B/P (MAP) Pulse Ox O2 Delivery O2 Flow Rate FiO2 11/13/24 07:45 18 Nasal Cannula* 2 28 11/13/24 04:44 98.1 92 122/63 (82) 97 98.1 Total Intake and Output 11/12/24 11/12/24 11/13/24 15:00 23:00 07:00 Intake Total 200 ml 300 ml Output Total 1650 ml Balance 200 ml -1350 ml medications Current Medications Medications Dose Ordered Sig/Mianl Route Start Time Stop Time Status Last Admin Dose Admin Nitroglycerin 0.4 mg Q5MINP PRN SL 11/07/24 13:15 Morphine Sulfate 2 mg Q30M PRN IV 11/07/24 13:15 11/10/24 19:39 2 MG Enteral Nutritional Formula 240 ml TIDWM PO 11/07/24 18:00 11/12/24 18:00 240 ML Diagnostic Test (Pha) 1 strip Q6HR 11/07/24 18:00 11/12/24 18:00 1 STRIP Insulin Human Regular FOLLOW SLIDING SCALE Q6HR SC 11/07/24 18:00 11/10/24 23:20 4 UNITS Dextrose 50 ml UD IV 11/07/24 14:30 Diltiazem HCl 180 mg DAILY PO 11/09/24 10:00 11/12/24 09:34 180 MG Morphine Sulfate 1 mg Q4HP PRN IV 11/08/24 15:00 11/12/24 21:04 1 MG Acetaminophen/ Hydrocodone Bitart 1 tab Q6HPRN PRN PO 11/08/24 15:00 11/13/24 06:12 1 TAB Acetaminophen 650 mg Q6HP PRN PO 11/08/24 15:00 Pantoprazole Sodium 40 mg DAILY IV 11/09/24 10:00 11/12/24 13:04 40 MG Ondansetron HCl 4 mg Q6HPRN PRN IV 11/08/24 15:00 11/11/24 13:17 4 MG Clonidine HCl 0.2 mg Q7D TD 11/11/24 00:45 11/11/24 00:50 0.2 MG Sodium Chloride 1,000 ml @ 60 mls/hr [id number] IV 11/12/24 09:00 11/12/24 09:00 60 MLS/HR Enoxaparin Sodium 60 mg Q12HR SC 11/12/24 22:00 11/12/24 21:06 60 MG Piperacillin Sod/ Tazobactam Sod 100 ml @ 25 mls/hr Q8HR IV 11/12/24 14:00 11/13/24 06:13 25 MLS/HR laboratory and microbiology Laboratory Tests 11/13/24 05:35 Test 11/13/24 05:35 Range/Units Serum Glucose 76 74-106 mg/dL Problem List ACCELERATED WEIGHT LOSS DYSPHAGIA MELENA S/P COLONOSCOPY REPORTED TO BE NEGATIVE HX OF TOBACCO USE CACHEXIA COPD HTN HX OF LGI BLEED ISCHEMIC COLITIS HX OF CAD S/P PTCA STENT RCA PTCA OF PDA Assessment/Plan MRI WITH CONTRAST GALLBLADDER SLUDGE SURGICAL CONSULT PT MAY PROCEED WITH SURGERY ASA II NEEDS CHOLECYSTECTOMY S/P LAP ESTHELA INITIALLY WITH POST OP BLEEDING STBALE S/P 1 UNIT PRBC H/H/ STABLE NO FURTHER BLEEDING NOW STABLE PT STARTED ON CLONIDINE FOR HTN BP STABLE HYPONATREMIA LEUKOCYTOSIS START ABX CHANGE IV TO NS SIGNIFICANT DROP IN H/H LEUKOCYTOSIS RESOLVED ON ABX INHALER THERAPY SINCE PT WHEEZING LASIX X 1 HYPONATREMIA STABLE WITH CHANGE IN IV FLUID Dietary Evaluation Review Comments: 1. Current nutrition support of combined Clinimix plus TPN is providing a total 95 g Protein, 1160 kcal. supporting pt's needs at 130% pro. and 76% energy in Kcal. Pt weights 54.5 kg on bedscale this afternoon. noted a 5kg gain from yester. 2. Advance diet to regular texture as tolerated after ther gallblader surgery as medically feasible. 3. Quick smoking/tobacco use. Expected Outcomes/Goals: gradual weight gain, Plan discussed with: Patient OFELIA OCHOA MD Nov 13, 2024 08:39
--- NOTE | 2024-11-13 09:06 | DVHPN2 ---
Progress Note Date Seen: Nov 13, 2024 Medical Necessity Reason Pt with a Central, PICC or Fol: Yes The following are medically ne: Barclay Catheter Reason for barclay catheter: Strict I&O Objective vital signs Vital Sign Date Time Temp Pulse Resp B/P (MAP) Pulse Ox O2 Delivery O2 Flow Rate FiO2 11/13/24 07:45 18 Nasal Cannula* 2 28 11/13/24 04:44 98.1 92 122/63 (82) 97 98.1 Total Intake and Output 11/12/24 11/12/24 11/13/24 15:00 23:00 07:00 Intake Total 200 ml 300 ml Output Total 1650 ml Balance 200 ml -1350 ml medications Current Medications Medications Dose Ordered Sig/Minal Route Start Time Stop Time Status Last Admin Dose Admin Nitroglycerin 0.4 mg Q5MINP PRN SL 11/07/24 13:15 Morphine Sulfate 2 mg Q30M PRN IV 11/07/24 13:15 11/10/24 19:39 2 MG Enteral Nutritional Formula 240 ml TIDWM PO 11/07/24 18:00 11/13/24 08:00 240 ML Diagnostic Test (Pha) 1 strip Q6HR 11/07/24 18:00 11/12/24 18:00 1 STRIP Insulin Human Regular FOLLOW SLIDING SCALE Q6HR SC 11/07/24 18:00 11/10/24 23:20 4 UNITS Dextrose 50 ml UD IV 11/07/24 14:30 Diltiazem HCl 180 mg DAILY PO 11/09/24 10:00 11/12/24 09:34 180 MG Morphine Sulfate 1 mg Q4HP PRN IV 11/08/24 15:00 11/12/24 21:04 1 MG Acetaminophen/ Hydrocodone Bitart 1 tab Q6HPRN PRN PO 11/08/24 15:00 11/13/24 06:12 1 TAB Acetaminophen 650 mg Q6HP PRN PO 11/08/24 15:00 Pantoprazole Sodium 40 mg DAILY IV 11/09/24 10:00 11/12/24 13:04 40 MG Ondansetron HCl 4 mg Q6HPRN PRN IV 11/08/24 15:00 11/11/24 13:17 4 MG Clonidine HCl 0.2 mg Q7D TD 11/11/24 00:45 11/11/24 00:50 0.2 MG Sodium Chloride 1,000 ml @ 60 mls/hr [id number] IV 11/12/24 09:00 11/12/24 09:00 60 MLS/HR Enoxaparin Sodium 60 mg Q12HR SC 11/12/24 22:00 11/12/24 21:06 60 MG Piperacillin Sod/ Tazobactam Sod 100 ml @ 25 mls/hr Q8HR IV 11/12/24 14:00 11/13/24 06:13 25 MLS/HR Ipratropium [place] 0.5 mg Q6HR NEB 11/13/24 12:00 Potassium Chloride 50 ml @ 25 mls/hr Q2H IV 11/13/24 09:00 11/13/24 12:59 laboratory and microbiology Laboratory Tests 11/13/24 05:35 Test 11/13/24 05:35 Range/Units Serum Glucose 76 74-106 mg/dL Problem List/Assessment/Plan Problem List/Assessment/Plan 11/09/24 SPOKE TO PRIMARY md WHO CLEARED THE PATIENT FOR OPERATION FROM CARDIAC POINT OF VIEW, hE AGREES WITH [PROCEEDING WITH CHOLECYSTECTOMY, OPERATION, RISKS AND COMPLICATIONS EXPLAINED TO PATIENT IN DETAIL 11/11/24 STATES SHE FEELS BETTER, RECEIVED TRANSFUSION, WOUNDS CLEAN AND WELL APPROXIMATED, ABDOMEN APPROPRIATELY TENDER, LABS OK,WILL TRANSFER TO [facility] AND ALLOW PO FULL LIQUIDS 11/13/24 AWAKE, ORIENTED, AFEBRILE, NORMOTENSIVE, WOUNDS CLEAN AND WELL APPROXIMATED, CATERINA DRAINAGE SEROSANGUINEOUS WBC NORMAL. Plan discussed with: Patient Dietary Evaluation Review Comments: 1. Current nutrition support of combined Clinimix plus TPN is providing a total 95 g Protein, 1160 kcal. supporting pt's needs at 130% pro. and 76% energy in Kcal. Pt weights 54.5 kg on bedscale this afternoon. noted a 5kg gain from yester. 2. Advance diet to regular texture as tolerated after ther gallblader surgery as medically feasible. 3. Quick smoking/tobacco use. Expected Outcomes/Goals: gradual weight gain, HECTOR BALLARD MD Nov 13, 2024 09:06
[2024-11-13] MEDS: POTASSIUM CHL 20MEQ/50ML 50 ML IV SCH (09:16)
[2024-11-13] MEDS: FUROSEMIDE 40 MG/4 ML VIAL IV ONE (09:16)
[2024-11-13] MEDS: SODIUM CHL 0.9% 100 ML IV ONE (09:18)
--- NOTE | 2024-11-13 11:37 | DVHPN2 ---
Progress Note Date Seen: Nov 13, 2024 Medical Necessity Reason Pt with a Central, PICC or Fol: No Subjective Patient reports: No new complaints Review of Systems: HEENT:Normal, CVS:Normal, RESPIRATORY:Normal, GI:Normal, :Normal, MSK:Normal, NEURO:Normal Objective vital signs Vital Sign Date Time Temp Pulse Resp B/P (MAP) Pulse Ox O2 Delivery O2 Flow Rate FiO2 11/13/24 09:45 93 20 102/63 11/13/24 09:00 98.0 99 98.0 11/13/24 07:45 Nasal Cannula* 2 28 Total Intake and Output 11/12/24 11/12/24 11/13/24 15:00 23:00 07:00 Intake Total 200 ml 300 ml Output Total 1650 ml Balance 200 ml -1350 ml medications Current Medications Medications Dose Ordered Sig/Minal Route Start Time Stop Time Status Last Admin Dose Admin Nitroglycerin 0.4 mg Q5MINP PRN SL 11/07/24 13:15 Morphine Sulfate 2 mg Q30M PRN IV 11/07/24 13:15 11/10/24 19:39 2 MG Enteral Nutritional Formula 240 ml TIDWM PO 11/07/24 18:00 11/13/24 08:00 240 ML Diagnostic Test (Pha) 1 strip Q6HR 11/07/24 18:00 11/12/24 18:00 1 STRIP Insulin Human Regular FOLLOW SLIDING SCALE Q6HR SC 11/07/24 18:00 11/10/24 23:20 4 UNITS Dextrose 50 ml UD IV 11/07/24 14:30 Diltiazem HCl 180 mg DAILY PO 11/09/24 10:00 11/13/24 09:15 180 MG Morphine Sulfate 1 mg Q4HP PRN IV 11/08/24 15:00 11/13/24 09:45 1 MG Acetaminophen/ Hydrocodone Bitart 1 tab Q6HPRN PRN PO 11/08/24 15:00 11/13/24 06:12 1 TAB Acetaminophen 650 mg Q6HP PRN PO 11/08/24 15:00 Pantoprazole Sodium 40 mg DAILY IV 11/09/24 10:00 11/13/24 09:13 40 MG Ondansetron HCl 4 mg Q6HPRN PRN IV 11/08/24 15:00 11/11/24 13:17 4 MG Clonidine HCl 0.2 mg Q7D TD 11/11/24 00:45 11/11/24 00:50 0.2 MG Sodium Chloride 1,000 ml @ 60 mls/hr [id number] IV 11/12/24 09:00 11/12/24 09:00 60 MLS/HR Enoxaparin Sodium 60 mg Q12HR SC 11/12/24 22:00 11/13/24 09:15 60 MG Piperacillin Sod/ Tazobactam Sod 100 ml @ 25 mls/hr Q8HR IV 11/12/24 14:00 11/13/24 06:13 25 MLS/HR Ipratropium [place] 0.5 mg Q6HR NEB 11/13/24 12:00 Examination: GENERAL:Normal, HEENT:Normal, NECK:Normal, LUNGS:Normal, LUNGS:Abnormal (on oxygen), CVS:Normal, ABDOMEN:Normal, MSK:Normal, SKIN:Normal, NEURO:Normal, :Normal laboratory and microbiology Laboratory Tests 11/13/24 05:35 Test 11/13/24 05:35 Range/Units Serum Glucose 76 74-106 mg/dL Microbiology Date/Time Source Procedure Growth Status 11/10/24 15:20 Urine - [place] Urine Culture - Preliminary Resulted 11/10/24 13:20 Nose MRSA Screen - Final Complete Problem List/Assessment/Plan Problem List/Assessment/Plan #1 wt loss ?acute mercedes: s/p surg #2 htn #3 cad s/p ptca #4 copd #5 tobacco abuse: advised to quit, refused nicotine patch- time spent 11 mins #6 right leg pain/ right leg dvt: [facility] megace #7 elevated mcv: b12 ,tsh #8 hypokalemia: replace #9 acute resp failure #10 copd advance care planning- full code- time spent 19 mins Plan discussed with: Patient My Orders My Orders Orders - ERNESTINE CENTENO MD Procedure Category Date Status Time Apixaban (Eliquis) PHA 11/13/24 Verified 22:00 Discontinue Tele MARILYN 11/13/24 Verified 11:32 Transfer Orders XFER 11/13/24 Verified 11:32 Cephalexin Capsule PHA 11/13/24 Verified (Keflex Capsule) 14:00 Pantoprazole Tablet PHA 11/14/24 Verified (Protonix Tablet) 06:00 * Dough Cutting Machine Operator CONS 11/13/24 Verified Consult Dietary Evaluation Review Comments: 1. Current nutrition support of combined Clinimix plus TPN is providing a total 95 g Protein, 1160 kcal. supporting pt's needs at 130% pro. and 76% energy in Kcal. Pt weights 54.5 kg on bedscale this afternoon. noted a 5kg gain from yester. 2. Advance diet to regular texture as tolerated after ther gallblader surgery as medically feasible. 3. Quick smoking/tobacco use. Expected Outcomes/Goals: gradual weight gain, Date of Service: Nov 13, 2024 Billing Provider: ERNESTINE CENTENO MD Common Visit Codes: [id number] INP/OBS CARE(HIGH) ERNESTINE CENTENO MD Nov 13, 2024 11:37
[2024-11-13] MEDS: IPRATROPIUM BROM 0.5 MG/2.5ML INH SOL NEB SCH (11:42)
[2024-11-13] MEDS: CEPHALEXIN 250 MG CAP PO SCH (13:39)
[2024-11-13] MEDS: APIXABAN 5 MG TAB PO SCH (21:47)
[2024-11-14] VITALS (20 sets, daily range): BP systolic 124–166; BP diastolic 68–89; PULSE 84–115; RESP 16–20; TEMP 97.4–98.8; O2SAT 94–100
[2024-11-14] MEDS: PANTOPRAZOLE 40 MG TAB PO SCH (05:24)
--- NOTE | 2024-11-14 08:46 | DVHPN2 ---
Progress Note - Dictate Date Seen: Nov 14, 2024 Medical Necessity Reason Pt with a Central, PICC or Fol: No Subjective ACCELERATED WEIGHT LOSS DYSPHAGIA MELENA S/P COLONOSCOPY REPORTED TO BE NEGATIVE HX OF TOBACCO USE CACHEXIA COPD HTN HX OF LGI BLEED ISCHEMIC COLITIS HX OF CAD S/P PTCA STENT RCA PTCA OF PDA vital signs Vital Sign Date Time Temp Pulse Resp B/P (MAP) Pulse Ox O2 Delivery O2 Flow Rate FiO2 11/14/24 08:38 98.8 104 19 132/73 (92) 96 98.8 11/14/24 07:56 Nasal Cannula* 2 28 Total Intake and Output 11/13/24 11/13/24 11/14/24 15:00 23:00 07:00 Intake Total 300 ml 675 ml Output Total 70 ml 350 ml Balance -70 ml 300 ml 325 ml medications Current Medications Medications Dose Ordered Sig/Minal Route Start Time Stop Time Status Last Admin Dose Admin Nitroglycerin 0.4 mg Q5MINP PRN SL 11/07/24 13:15 Morphine Sulfate 2 mg Q30M PRN IV 11/07/24 13:15 11/10/24 19:39 2 MG Enteral Nutritional Formula 240 ml TIDWM PO 11/07/24 18:00 11/13/24 12:00 240 ML Diltiazem HCl 180 mg DAILY PO 11/09/24 10:00 11/13/24 09:15 180 MG Morphine Sulfate 1 mg Q4HP PRN IV 11/08/24 15:00 11/13/24 09:45 1 MG Acetaminophen/ Hydrocodone Bitart 1 tab Q6HPRN PRN PO 11/08/24 15:00 11/14/24 05:24 1 TAB Acetaminophen 650 mg Q6HP PRN PO 11/08/24 15:00 Ondansetron HCl 4 mg Q6HPRN PRN IV 11/08/24 15:00 11/11/24 13:17 4 MG Ipratropium [place] 0.5 mg Q6HR NEB 11/13/24 12:00 11/14/24 06:20 0.5 MG Apixaban 5 mg BID PO 11/13/24 22:00 11/13/24 21:47 5 MG Cephalexin 500 mg TID PO 11/13/24 14:00 11/14/24 05:24 500 MG Pantoprazole Sodium 40 mg DAILY@0600 PO 11/14/24 06:00 11/14/24 05:24 40 MG laboratory and microbiology Laboratory Tests 11/13/24 05:35 Test 11/13/24 05:35 Range/Units Serum Glucose 76 74-106 mg/dL Problem List ACCELERATED WEIGHT LOSS DYSPHAGIA MELENA S/P COLONOSCOPY REPORTED TO BE NEGATIVE HX OF TOBACCO USE CACHEXIA COPD HTN HX OF LGI BLEED ISCHEMIC COLITIS HX OF CAD S/P PTCA STENT RCA PTCA OF PDA Assessment/Plan MRI WITH CONTRAST GALLBLADDER SLUDGE SURGICAL CONSULT PT MAY PROCEED WITH SURGERY ASA II NEEDS CHOLECYSTECTOMY S/P LAP ESTHELA INITIALLY WITH POST OP BLEEDING STBALE S/P 1 UNIT PRBC H/H/ STABLE NO FURTHER BLEEDING NOW STABLE PT STARTED ON CLONIDINE FOR HTN BP STABLE HYPONATREMIA LEUKOCYTOSIS START ABX CHANGE IV TO NS SIGNIFICANT DROP IN H/H LEUKOCYTOSIS RESOLVED ON ABX INHALER THERAPY SINCE PT WHEEZING LASIX X 1 HYPONATREMIA STABLE WITH CHANGE IN IV FLUID ANTICOAGULATION KUB Dietary Evaluation Review Comments: 1. Current nutrition support of combined Clinimix plus TPN is providing a total 95 g Protein, 1160 kcal. supporting pt's needs at 130% pro. and 76% energy in Kcal. Pt weights 54.5 kg on bedscale this afternoon. noted a 5kg gain from yester. 2. Advance diet to regular texture as tolerated after ther gallblader surgery as medically feasible. 3. Quick smoking/tobacco use. Expected Outcomes/Goals: gradual weight gain, Plan discussed with: Patient OFELIA OCHOA MD Nov 14, 2024 08:46
--- NOTE | 2024-11-14 10:54 | DVHPN2 ---
Progress Note Date Seen: Nov 14, 2024 Medical Necessity Reason Pt with a Central, PICC or Fol: No Subjective Patient reports: No new complaints Review of Systems: HEENT:Normal, CVS:Normal, RESPIRATORY:Normal, GI:Normal, :Normal, MSK:Normal, NEURO:Normal Objective vital signs Vital Sign Date Time Temp Pulse Resp B/P (MAP) Pulse Ox O2 Delivery O2 Flow Rate FiO2 11/14/24 09:25 88 20 132/73 11/14/24 08:38 98.8 96 98.8 11/14/24 07:56 Nasal Cannula* 2 28 Total Intake and Output 11/13/24 11/13/24 11/14/24 15:00 23:00 07:00 Intake Total 300 ml 675 ml Output Total 70 ml 350 ml Balance -70 ml 300 ml 325 ml medications Current Medications Medications Dose Ordered Sig/Minal Route Start Time Stop Time Status Last Admin Dose Admin Nitroglycerin 0.4 mg Q5MINP PRN SL 11/07/24 13:15 Morphine Sulfate 2 mg Q30M PRN IV 11/07/24 13:15 11/10/24 19:39 2 MG Enteral Nutritional Formula 240 ml TIDWM PO 11/07/24 18:00 11/14/24 08:00 240 ML Diltiazem HCl 180 mg DAILY PO 11/09/24 10:00 11/14/24 08:55 180 MG Morphine Sulfate 1 mg Q4HP PRN IV 11/08/24 15:00 11/14/24 08:55 1 MG Acetaminophen/ Hydrocodone Bitart 1 tab Q6HPRN PRN PO 11/08/24 15:00 11/14/24 05:24 1 TAB Acetaminophen 650 mg Q6HP PRN PO 11/08/24 15:00 Ondansetron HCl 4 mg Q6HPRN PRN IV 11/08/24 15:00 11/11/24 13:17 4 MG Ipratropium Penelope 0.5 mg Q6HR NEB 11/13/24 12:00 11/14/24 06:20 0.5 MG Apixaban 5 mg BID PO 11/13/24 22:00 11/14/24 08:55 5 MG Cephalexin 500 mg TID PO 11/13/24 14:00 11/14/24 05:24 500 MG Pantoprazole Sodium 40 mg DAILY@0600 PO 11/14/24 06:00 11/14/24 05:24 40 MG Examination: GENERAL:Normal, HEENT:Normal, NECK:Normal, LUNGS:Normal, CVS:Normal, ABDOMEN:Normal, MSK:Normal, SKIN:Normal, NEURO:Normal, :Normal laboratory and microbiology Laboratory Tests 11/13/24 05:35 Test 11/13/24 05:35 Range/Units Serum Glucose 76 74-106 mg/dL Microbiology Date/Time Source Procedure Growth Status 11/10/24 15:20 Urine - [place] Urine Culture - Final Complete 11/10/24 13:20 Nose MRSA Screen - Final Complete Problem List/Assessment/Plan Problem List/Assessment/Plan #1 wt loss ?acute mercedes: s/p surg #2 htn #3 cad s/p ptca #4 copd #5 tobacco abuse: advised to quit, refused nicotine patch- time spent 11 mins #6 right leg pain/ right leg dvt: lovenox, dc megace #7 elevated mcv: b12 ,tsh #8 hypokalemia: replace #9 acute resp failure #10 copd #11 anemia: cbc advance care planning- full code- time spent 19 mins Plan discussed with: Patient My Orders My Orders Orders - ERNESTINE CENTENO MD Procedure Category Date Status Time Apixaban (Eliquis) PHA 11/13/24 In Process 22:00 Discontinue Tele MARILYN 11/13/24 In Process 11:32 Transfer Orders XFER 11/13/24 Transmitted 11:32 Cephalexin Capsule PHA 11/13/24 In Process (Keflex Capsule) 14:00 Pantoprazole Tablet PHA 11/14/24 In Process (Protonix Tablet) 06:00 * Strike Off Machine Operator CONS 11/13/24 Transmitted Consult Discontinue Salazar MARILYN 11/13/24 In Process Catheter 11:36 Enoxaparin Sodium PHA 11/14/24 Transmitted (Lovenox) 22:00 Complete Blood Count LAB 11/14/24 Transmitted 10:48 Comprehensive LAB 11/14/24 Transmitted Metabolic Panel 10:48 Complete Blood Count LAB 11/15/24 Verified 06:00 Lactulose Oral PHA 11/14/24 Transmitted 11:00 Polyethylene Glycol PHA 11/14/24 Transmitted 17g Powder (Miralax 11:00 Dietary Evaluation Review Comments: 1. Current nutrition support of combined Clinimix plus TPN is providing a total 95 g Protein, 1160 kcal. supporting pt's needs at 130% pro. and 76% energy in Kcal. Pt weights 54.5 kg on bedscale this afternoon. noted a 5kg gain from yester. 2. Advance diet to regular texture as tolerated after ther gallblader surgery as medically feasible. 3. Quick smoking/tobacco use. Expected Outcomes/Goals: gradual weight gain, Date of Service: Nov 14, 2024 Billing Provider: ERNESTINE CENTENO MD Common Visit Codes: [id number] INP/OBS CARE(HIGH) ERNESTINE CENTENO MD Nov 14, 2024 10:54
[2024-11-14] MEDS: LACTULOSE 20Gm/30ML SOLN PO ONE (11:30)
[2024-11-14] MEDS: POLYETHYLENE GLYCOL 17 GM PWDR PO ONE (11:30)
--- NOTE | 2024-11-14 11:36 | DVH ---
Date: 11/14/2024 09:08 AM Examination: XY KUB ABDOMEN SINGLE VIEW History: S/P LAB ESTHELA Comparison: XY KUB ABDOMEN SINGLE VIEW on DOS: 08/02/24 TECHNIQUE: Frontal views of the abdomen was obtained. FINDINGS: Dilated loops of small bowel are visualized. Surgical catheter projects over the right upper quadrant . The lung bases are unremarkable. No acute osseous abnormality identified. IMPRESSION: Dilated loops of small bowel which may represent postoperative ileus versus small-bowel obstruction.
[2024-11-14 13:03] LABS: Albumin 3.8 g/dL (3.2-4.8); Alkaline Phosphatase 66 U/L (46-116); Anion Gap 10 (5-15); Aspartate Aminotransferase 39 U/L (13-40); BUN/Creatinine Ratio 27.7 (10.0-20.0); Blood Urea Nitrogen 13 mg/dL (9-23); Carbon Dioxide 27 mmol/L (20-31); Glucose 89 mg/dL (74-106); Potassium 4.1 mmol/L (3.5-5.1); Total Protein 6.5 g/dL (5.7-8.2)
[2024-11-14 13:04] LABS: Bilirubin, Total 1.2 mg/dL (0.2-1.0)
[2024-11-14 13:11] LABS: Alanine Aminotransferase 43 U/L (7-40); Chloride 96 mmol/L (98-107); Sodium 133 mmol/L (136-145)
[2024-11-14 13:36] LABS: Basophils # (auto) 0 10 ^3/uL (0-0.2); Basophils % (auto) 0.1 % (0.0-2.0); Eosinophils # (auto) 0 10 ^3/uL (0-0.8); Hematocrit 33.6 % (36.0-46.0); Hemoglobin 11.4 g/dL (12.2-16.2); Lymphocytes # (auto) 0.6 10 ^3/uL (0.4-5.4); Lymphocytes % (auto) 6.7 % (10.0-50.0); Mean Corpuscular Hemoglobin 33.4 pg (28.0-32.0); Mean Corpuscular Volume 98.2 fL (80.0-100.0); Monocytes % (auto) 11.2 % (0.0-12.0); Neutrophils # (auto) 7.2 10 ^3/uL (1.6-8.6); Nucleated Red Blood Cells % 0.3 %; Platelet Count (auto) 282 10^3/uL (140-450); Red Blood Cells 3.42 10^6/uL (4.0-5.20); Red Cell Distribution Width 17.3 % (11.8-14.3); White Blood Cell 8.7 10^3/uL (4.4-10.8)
[2024-11-14] MEDS: ENOXAPARIN SOD 60 MG/0.6 ML SYRINGE SC SCH (21:24)
[2024-11-14] MEDS: KETOROLAC TROMETH 30 MG/ML 1ML VIAL IV ONE (22:39)
[2024-11-15] VITALS (21 sets, daily range): BP systolic 72–185; BP diastolic 41–96; PULSE 80–132; RESP 15–25; TEMP 91.6–98.3; O2SAT 89–100
[2024-11-15] MEDS: LABETALOL HCL 20 MG/4 ML VL IV ONE (01:02)
[2024-11-15 05:47] LABS: Basophils # (auto) 0 10 ^3/uL (0-0.2); Basophils % (auto) 0.1 % (0.0-2.0); Eosinophils # (auto) 0 10 ^3/uL (0-0.8); Hematocrit 33.3 % (36.0-46.0); Hemoglobin 11.4 g/dL (12.2-16.2); Lymphocytes # (auto) 0.3 10 ^3/uL (0.4-5.4); Lymphocytes % (auto) 3.8 % (10.0-50.0); Mean Corpuscular Hemoglobin 33.3 pg (28.0-32.0); Mean Corpuscular Hgb Conc. 34.1 g/dL (32.0-36.0); Mean Corpuscular Volume 97.8 fL (80.0-100.0); Monocytes # (auto) 1.1 10 ^3/uL (0-1.3); Monocytes % (auto) 15.8 % (0.0-12.0); Neutrophils # (auto) 5.8 10 ^3/uL (1.6-8.6); Neutrophils % (auto) 80.3 % (37.0-80.0); Nucleated Red Blood Cells % 0.1 %; Platelet Count (auto) 261 10^3/uL (140-450); Red Blood Cells 3.41 10^6/uL (4.0-5.20); Red Cell Distribution Width 16.9 % (11.8-14.3); White Blood Cell 7.2 10^3/uL (4.4-10.8)
[2024-11-15] MEDS: POLYETHYLENE GLYCOL 17 GM PWDR PO ONE (14:30)
[2024-11-15] MEDS ORDERED: LACTULOSE 20Gm/30ML SOLN PO PRN (14:30)
[2024-11-15] MEDS ORDERED: POLYETHYLENE GLYCOL 17 GM PWDR PO PRN (14:30)
--- NOTE | 2024-11-15 14:31 | DVHPN2 ---
Progress Note Date Seen: Nov 15, 2024 Medical Necessity Reason Pt with a Central, PICC or Fol: No Subjective Patient reports: No new complaints Review of Systems: HEENT:Normal, CVS:Normal, RESPIRATORY:Normal, GI:Normal, :Normal, MSK:Normal, NEURO:Normal Objective vital signs Vital Sign Date Time Temp Pulse Resp B/P (MAP) Pulse Ox O2 Delivery O2 Flow Rate FiO2 11/15/24 12:37 101 16 99 11/15/24 12:37 96.2 106/65 (79) 96.2 11/15/24 12:27 Nasal Cannula 2.0 11/15/24 12:27 28 Total Intake and Output 11/14/24 11/14/24 11/15/24 15:00 23:00 07:00 Intake Total 700 ml Output Total 50 ml 50 ml 72 ml Balance -50 ml -50 ml 628 ml medications Current Medications Medications Dose Ordered Sig/Minal Route Start Time Stop Time Status Last Admin Dose Admin Nitroglycerin 0.4 mg Q5MINP PRN SL 11/07/24 13:15 Morphine Sulfate 2 mg Q30M PRN IV 11/07/24 13:15 11/10/24 19:39 2 MG Enteral Nutritional Formula 240 ml TIDWM PO 11/07/24 18:00 11/15/24 10:13 240 ML Diltiazem HCl 180 mg DAILY PO 11/09/24 10:00 11/15/24 10:13 180 MG Morphine Sulfate 1 mg Q4HP PRN IV 11/08/24 15:00 11/15/24 10:59 1 MG Acetaminophen/ Hydrocodone Bitart 1 tab Q6HPRN PRN PO 11/08/24 15:00 11/15/24 06:31 1 TAB Acetaminophen 650 mg Q6HP PRN PO 11/08/24 15:00 Ondansetron HCl 4 mg Q6HPRN PRN IV 11/08/24 15:00 11/11/24 13:17 4 MG Ipratropium Bee 0.5 mg Q6HR NEB 11/13/24 12:00 11/15/24 12:27 0.5 MG Cephalexin 500 mg TID PO 11/13/24 14:00 11/15/24 06:11 500 MG Pantoprazole Sodium 40 mg DAILY@0600 PO 11/14/24 06:00 11/15/24 06:11 40 MG Enoxaparin Sodium 50 mg Q12HR SC 11/14/24 22:00 11/15/24 10:14 50 MG Examination: GENERAL:Normal, HEENT:Normal, NECK:Normal, LUNGS:Normal, CVS:Normal, ABDOMEN:Normal, ABDOMEN:Abnormal (shima drain), MSK:Normal, SKIN:Normal, NEURO:Normal, :Normal laboratory and microbiology Laboratory Tests 11/15/24 04:53 11/14/24 12:21 Test 11/14/24 12:21 Range/Units Serum Glucose 89 74-106 mg/dL Microbiology Date/Time Source Procedure Growth Status 11/10/24 15:20 Urine - [place] Urine Culture - Final Complete 11/10/24 13:20 Nose MRSA Screen - Final Complete Problem List/Assessment/Plan Problem List/Assessment/Plan #1 wt loss ?acute mercedes: s/p surg #2 htn #3 cad s/p ptca #4 copd #5 tobacco abuse: advised to quit, refused nicotine patch- time spent 11 mins #6 right leg pain/ right leg dvt: lovenox, dc megace #7 elevated mcv: b12 ,tsh #8 hypokalemia: replace #9 acute resp failure #10 copd #11 anemia: cbc advance care planning- full code- time spent 19 mins Plan discussed with: Patient My Orders My Orders Orders - ERNESTINE CENTENO MD Procedure Category Date Status Time Diltiazem Er Capsule PHA 11/16/24 Verified (Cardizem La Capsul 10:00 Lactulose Oral PHA 11/16/24 Verified 10:00 Lactulose Oral PHA 11/15/24 Verified 14:30 Polyethylene Glycol PHA 11/15/24 Verified 17g Powder (Miralax 14:30 Polyethylene Glycol PHA 11/15/24 Verified 17g Powder (Miralax 14:30 Dietary Evaluation Review Comments: 1. Current nutrition support of combined Clinimix plus TPN is providing a total 95 g Protein, 1160 kcal. supporting pt's needs at 130% pro. and 76% energy in Kcal. Pt weights 54.5 kg on bedscale this afternoon. noted a 5kg gain from yester. 2. Advance diet to regular texture as tolerated after ther gallblader surgery as medically feasible. 3. Quick smoking/tobacco use. Expected Outcomes/Goals: gradual weight gain, Date of Service: Nov 15, 2024 Billing Provider: ERNESTINE CENTENO MD Common Visit Codes: [id number] INP/OBS CARE(HIGH) Date of Service: Nov 15, 2024 Billing Provider: ERNESTINE CENTENO MD Common Visit Codes: [id number] INP/OBS CARE(HIGH) ERNESTINE CENTENO MD Nov 15, 2024 14:31
--- NOTE | 2024-11-15 14:59 | DVHPN2 ---
Progress Note Date Seen: Nov 15, 2024 Medical Necessity Reason Pt with a Central, PICC or Fol: No Objective vital signs Vital Sign Date Time Temp Pulse Resp B/P (MAP) Pulse Ox O2 Delivery O2 Flow Rate FiO2 11/15/24 12:37 101 16 99 11/15/24 12:37 96.2 106/65 (79) 96.2 11/15/24 12:27 Nasal Cannula 2.0 11/15/24 12:27 28 Total Intake and Output 11/14/24 11/14/24 11/15/24 15:00 23:00 07:00 Intake Total 700 ml Output Total 50 ml 50 ml 72 ml Balance -50 ml -50 ml 628 ml medications Current Medications Medications Dose Ordered Sig/Minal Route Start Time Stop Time Status Last Admin Dose Admin Nitroglycerin 0.4 mg Q5MINP PRN SL 11/07/24 13:15 Morphine Sulfate 2 mg Q30M PRN IV 11/07/24 13:15 11/10/24 19:39 2 MG Enteral Nutritional Formula 240 ml TIDWM PO 11/07/24 18:00 11/15/24 14:46 240 ML Morphine Sulfate 1 mg Q4HP PRN IV 11/08/24 15:00 11/15/24 10:59 1 MG Acetaminophen/ Hydrocodone Bitart 1 tab Q6HPRN PRN PO 11/08/24 15:00 11/15/24 06:31 1 TAB Acetaminophen 650 mg Q6HP PRN PO 11/08/24 15:00 Ondansetron HCl 4 mg Q6HPRN PRN IV 11/08/24 15:00 11/11/24 13:17 4 MG Ipratropium Pattison 0.5 mg Q6HR NEB 11/13/24 12:00 11/15/24 12:27 0.5 MG Cephalexin 500 mg TID PO 11/13/24 14:00 11/15/24 14:45 500 MG Pantoprazole Sodium 40 mg DAILY@0600 PO 11/14/24 06:00 11/15/24 06:11 40 MG Enoxaparin Sodium 50 mg Q12HR SC 11/14/24 22:00 11/15/24 10:14 50 MG Diltiazem HCl 240 mg DAILY PO 11/16/24 10:00 Lactulose 30 ml DAILY PO 11/16/24 10:00 Lactulose 30 ml BIDPRN PRN PO 11/15/24 14:30 Polyethylene Glycol 17 gm DAILYPRN PRN PO 11/15/24 14:30 laboratory and microbiology Laboratory Tests 11/15/24 04:53 11/14/24 12:21 Test 11/14/24 12:21 Range/Units Serum Glucose 89 74-106 mg/dL Problem List/Assessment/Plan Problem List/Assessment/Plan 11/09/24 SPOKE TO PRIMARY md WHO CLEARED THE PATIENT FOR OPERATION FROM CARDIAC POINT OF VIEW, hE AGREES WITH [PROCEEDING WITH CHOLECYSTECTOMY, OPERATION, RISKS AND COMPLICATIONS EXPLAINED TO PATIENT IN DETAIL 11/11/24 STATES SHE FEELS BETTER, RECEIVED TRANSFUSION, WOUNDS CLEAN AND WELL APPROXIMATED, ABDOMEN APPROPRIATELY TENDER, LABS OK,WILL TRANSFER TO [facility] AND ALLOW PO FULL LIQUIDS 11/13/24 AWAKE, ORIENTED, AFEBRILE, NORMOTENSIVE, WOUNDS CLEAN AND WELL APPROXIMATED, CATERINA DRAINAGE SEROSANGUINEOUS WBC NORMAL. 11/15/24 PAIN CONTROLLED, ABDOEN APPROPRIATELY TENDER, VERY SHORT OF BREATH, WILL GET CXR Plan discussed with: Patient, Daughter Dietary Evaluation Review Comments: 1. Current nutrition support of combined Clinimix plus TPN is providing a total 95 g Protein, 1160 kcal. supporting pt's needs at 130% pro. and 76% energy in Kcal. Pt weights 54.5 kg on bedscale this afternoon. noted a 5kg gain from yester. 2. Advance diet to regular texture as tolerated after ther gallblader surgery as medically feasible. 3. Quick smoking/tobacco use. Expected Outcomes/Goals: gradual weight gain, HECTOR BALLARD MD Nov 15, 2024 14:59
[2024-11-15] MEDS ORDERED: ETOMIDATE (2MG/ML) 20ML VIAL IV ONE ×2 (15:02→15:21)
[2024-11-15] MEDS ORDERED: SODIUM CHLORIDE 0.9% 1,000 ML IV SCH (15:15)
[2024-11-15] MEDS ORDERED: PANTOPRAZOLE 40 MG/10 ML VIAL INJ IV ONE (15:15)
--- NOTE | 2024-11-15 15:17 | CODING ---
Date of Service: Nov 15, 2024 Billing Provider: ERNESTINE CENTENO MD Common Visit Codes: [id number] CARE 30-74 MIN ERNESTINE CENTENO MD Nov 15, 2024 15:17
[2024-11-15] MEDS ORDERED: ROCURONIUM 10MG/ML 10ML VIAL IV ONE (15:21)
[2024-11-15] MEDS: NOREPINEPHRINE 8 MG/250ML KIT 250 ML IV ONE (15:23)
[2024-11-15] MEDS: fentaNYL Drip 2500mCg/250mlNS 250 ML IV ONE (15:38)
[2024-11-15] MEDS: PHENYLEPHRINE IV 250 ML IV ONE ×2 (15:42→17:54)
[2024-11-15] MEDS: VASOPRESSIN 20 UNIT/ML ONE (15:52)
--- NOTE | 2024-11-15 16:06 | DVHNC2 ---
Intubation Indication: Respiratory Insufficiency, Altered Mental Status Prep: Preoxygenation Pretreated with: Sedation Medicated with: Other (ROCUONIUM) Intubation Approach: Orotracheal Intubation size: cm (8) Informed consent obtained: No Risks/benefits/alt described: No Date of Service: Nov 15, 2024 Billing Provider: ERNESTINE CENTENO MD Common Visit Codes: PROCEDURE ONLY Procedure Codes: [id number] ERNESTINE CENTENO MD Nov 15, 2024 16:06
[2024-11-15] MEDS ORDERED: VANCOMYCIN PER PHARMACY 0 MG IV SCH (16:15)
[2024-11-15] MEDS: SODIUM CHLORIDE 0.9% 1,000 ML IV SCH (16:15)
[2024-11-15] MEDS: MIDAZOLAM DRIP 50 mg/50mL 50 ML IV SCH (16:22)
[2024-11-15] MEDS: PROPOFOL 100 ML IV SCH (16:22)
[2024-11-15] MEDS: MIDAZOLAM DRIP 50 mg/50mL 50 ML IV ONE (16:22)
--- NOTE | 2024-11-15 16:33 | DVHNC2 ---
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 Indication: Other (respiratory failure; agonal breaths; aspiration n/v reqr airway protection) Room prepared for procedure: Yes Professional Poker Player performed hand hygien: Yes Maximal sterile barrier precau: Mask/Eye shield, Sterlie gloves, Large sterlie drape Skin Preparation: Chlorhexidine gluconate Skin preparation completely dr: Yes Insertion site: Right, Internal jugular Central line catheter type: [id number] dialysis Number of lumens: 3 Central line exchanged over a: No Antiseptic ointment applied to: Yes Post Assessment: Chest X-Ray Informed consent obtained: No Risks/benefits/alt described: No Notes emergent procedure on full code patient Other Procedure Notes ULTRASOUND-GUIDED RIGHT INTERNAL JUGULAR CENTRAL VENOUS CANNULATION CPT Codes: 96968 (ultrasound guidance) 68804 (insertion of non-tunneled centrally inserted central venous catheter) 76899 (CXR interpretation) DATE: 11/15/24 PHYSICIAN: Saray Santiago PREOPERATIVE DIAGNOSIS: acute cholecystitis possible POSTOPERATIVE DIAGNOSIS: acute cholecystitis possible PROCEDURE PERFORMED: Limited Ultrasound-guided Right internal jugular central line placement. ANESTHESIA: intubated sedated ESTIMATED BLOOD LOSS: less than 5 mL. SPECIMENS: None. COMPLICATIONS: None. INDICATIONS FOR PROCEDURE: The patient is in need of large bore IV access for administration of fluids, including blood products and vasoactive drugs, possible transvenous cardiac pacing and CVP monitoring for hemodynamic instability. DESCRIPTION OF PROCEDURE IN DETAIL: The patient was lying in the Trendelenburg position with head turned 30 degrees away from the insertion site. The skin was thoroughly sponged with chlorhexidine and allowed to dry. All persons involved were shielded with hair nets, face masks and sterile gowns. With sterile-gloved hands the right neck area was draped with the large disposable sterile field provided in the pre-manufactured kit. The skin and subcutaneous tissues superficial to the RIGHT internal jugular vein were anesthetized with 2 mL of 1% lidocaine. The right internal jugular vein was identified on ultrasound from the angle of the mandible down into the supraclavicular fossa using the linear ultrasound probe in the transverse orientation. The carotid artery was identified and avoided utilizing color-flow. The internal jugular vein was then placed in the center of the ultrasound field and compressed for patency. A movement artifact was identified as the needle was advanced through the skin and advanced toward the vessel. A real time hyperechoic signal revealed visualization of vascular needle entry into the lumen as blood was noted to flashback in the syringe. The needle was then held in place while the guide wire was advanced. The needle was then removed. Direct visualization of guide wire location within the vein was noted on ultrasound indicating proper placement and was document in the electronic medical record chart. A skin dilator was advanced over the guidewire and removed, and the triple-lumen catheter was then advanced over the guide wire into proper position. The guide wire was removed and discarded. The ports were aspirated which showed good blood return and then carefully flushed with normal saline. The catheter was stabilized and sutured to the skin with 2-0 silk at 4 anchor points. A sterile bio-patch and dressing was placed over the catheter, including the insertion site. The patient tolerated the procedure well. A chest x-ray was ordered for position confirmation. I reviewed the image immediately after it was taken at bedside. Post-procedure chest x-ray pending. Date of Service: Nov 15, 2024 Billing Provider: SARAY FLORES MD Common Visit Codes: PROCEDURE ONLY Procedure Codes: [id number] NON-TUNNEL CV CATH SARAY FLORES MD Nov 15, 2024 16:33
--- NOTE | 2024-11-15 16:48 | DVH ---
CHEST RADIOGRAPH Indication: SOB Technique: Single frontal view of the chest was obtained COMPARISON: XY CHEST PORTABLE on DOS: 11/13/24 FINDINGS: Lines and Tubes: Endotracheal tube 2.7 cm above the shawn. NG tube coursing into the stomach in the in the body. Right-sided line ends in the superior vena cava. Lungs: Clear Pleura: No effusion. No pneumothorax. Cardiomediastinal contours: Unremarkable Bones: Unremarkable IMPRESSION: 1. Endotracheal tube 2.7 cm above the shawn.
--- NOTE | 2024-11-15 17:15 | CODING ---
Date of Service: Nov 15, 2024 Billing Provider: ERNESTINE CENTENO MD Common Visit Codes: [id number]-ODYMLTPI CARE 30-74 MIN, 69285-IROHGQBR CARE-EACH +30MIN ERNESTINE CENTENO MD Nov 15, 2024 17:15
[2024-11-15] MEDS: EPINEPHrine HCL 250 ML IV ONE (17:41)
[2024-11-15] MEDS: EPINEPHrine HCL 250 ML IV SCH (17:54)
[2024-11-15] MEDS: PHENYLEPHRINE IV 250 ML IV SCH (17:54)
[2024-11-15] MEDS: PIPERACILLIN-TAZOB 3.375GM 100 ML IV ONE (17:57)
[2024-11-15] MEDS: SODIUM BICARB 8.4% 50Meq/50ml SYR INJ ONE (17:58)
[2024-11-15] MEDS ORDERED: SODIUM BICARB 50mEq/50ml Vial 150 ML in D5W 5% 1,000 ML IV SCH (18:00)
[2024-11-15] MEDS: SODIUM BICARB 8.4% 50Meq/50ml SYR Vial IV ONE (18:00)
[2024-11-15 18:12] LABS: Basophils # (auto) 0 10 ^3/uL (0-0.2); Basophils % (auto) 0.2 % (0.0-2.0); Eosinophils # (auto) 0 10 ^3/uL (0-0.8); Eosinophils % (auto) 0.2 % (0.0-7.0); Hematocrit 26.3 % (36.0-46.0); Hemoglobin 8.7 g/dL (12.2-16.2); Lymphocytes # (auto) 0.2 10 ^3/uL (0.4-5.4); Lymphocytes % (auto) 8.6 % (10.0-50.0); Mean Corpuscular Hemoglobin 33.5 pg (28.0-32.0); Mean Corpuscular Hgb Conc. 33.3 g/dL (32.0-36.0); Mean Corpuscular Volume 100.6 fL (80.0-100.0); Monocytes # (auto) 0 10 ^3/uL (0-1.3); Monocytes % (auto) 1.5 % (0.0-12.0); Neutrophils # (auto) 2.6 10 ^3/uL (1.6-8.6); Neutrophils % (auto) 89.5 % (37.0-80.0); Nucleated Red Blood Cells % 0.7 %; Platelet Count (auto) 205 10^3/uL (140-450); Red Blood Cells 2.61 10^6/uL (4.0-5.20); Red Cell Distribution Width 16.9 % (11.8-14.3); White Blood Cell 2.9 10^3/uL (4.4-10.8)
[2024-11-15] MEDS: SODIUM BICARB 50mEq/50ml Vial 150 ML in D5W 5% 1,000 ML IV SCH (18:15)
[2024-11-15 18:27] LABS: Alkaline Phosphatase 56 U/L (46-116); Anion Gap 17 (5-15); BUN/Creatinine Ratio 28.2 (10.0-20.0); Chloride 103 mmol/L (98-107); Potassium 4.5 mmol/L (3.5-5.1); Sodium 137 mmol/L (136-145)
--- NOTE | 2024-11-15 18:29 | RESUS ---
CODE BLUE ASSESSSMENT History of Events History of Events: S/P TILA LEARY THIS ADMISSION, SEE EMR FOR CARE AND TREATMENT DURING ADMISSION. RAPID RESPONSE CALLED AT 1453. PATIENT COLLAPSED ONTO FLOOR WITH TIE TAPE MACHINE OPERATOR PER REPORT AND FOUND BY BED UNRESPONSIVE WITH BLANK STARE. PATIENT WAS PLACED BACK INTO BED AND CPR INITIATED DUE TO NO PALPABLE PULSE AT 1455. Initial Information Date: Nov 15, 2024 Time: 14:55 Arrest Witnessed: No CPR started initial time: 14:55 CPR started by whom: Hospital Staff Last seen well: 1435 Type of arrest: Cardiac, Adult, Witnessed Spontaneous Respirations: No Pulse Present: No Monitoring: ECG Crash Cart Opened and Supplies: Yes Airway Ventilation Breathing at Onset: Assisted Oxygen Delivery Method: Ambu-Bag Artificial Ventilation: Bag/Mask Circulation Circulation #1: Time: 14:55 Pulse Rate (adult): 0 Blood Pressure Systolic: 0 Blood Pressure Diastolic: 0 Circulation #2: Time: 14:57 Pulse Rate (adult): 119 Blood Pressure Systolic: 192 Blood Pressure Diastolic: 98 Temperature (Fahrenheit): 96.9 Circulation Comment: SINUS TACHYCARDIA Defibrillation Defbrillation : Time Defibrillator Applied: 14:56 Medications & Response Medications and Responses : Medication Time: 14:55 ADULT Medications Given ADULT: Epinephrine 1 mg Route of Administration: IV Nurses Notes [place] Coma Scale Eye Opening: Spontaneous (4) Kameron Coma Scale Verbal: None (1) [place]on Coma Scale Motor: Withdraws to Pain (4) Glascow Total: 1457 Pupil Reaction: Sluggish Nurses Notes - Comment: DECISION MADE TO INTUBATE POST CODE DUE TO AGONAL BREATHING AND REMAINED UNRESPONSIVE TO VERBAL STIMULI-SEE NOTE. Time Code Ended Time Code Ended: 14:57 Post Arrest Status: Awake Outcome of code: Successful Family notified: Yes ROSC Time of ROSC: 14:57 Pt Meets Criteria for Therapeu: No Alfred Carlos Nov 15, 2024 18:29
[2024-11-15 18:51] LABS: Alanine Aminotransferase 923 U/L (7-40); Aspartate Aminotransferase 1522 U/L (13-40); Bilirubin, Total 1.7 mg/dL (0.2-1.0); Blood Urea Nitrogen 31 mg/dL (9-23); Calcium 8.3 mg/dL (8.7-10.4); Carbon Dioxide 17 mmol/L (20-31)
[2024-11-15 18:52] LABS: Albumin 2.6 g/dL (3.2-4.8); Total Protein 4.4 g/dL (5.7-8.2)
[2024-11-15 18:53] LABS: Glucose 32 mg/dL (74-106)
[2024-11-15] MEDS: fentaNYL Drip 2500mCg/250mlNS 250 ML IV SCH (18:54)
--- NOTE | 2024-11-15 19:00 | RESUS ---
CODE BLUE ASSESSSMENT History of Events History of Events: SECOND CODE BLUE, NO PALPABLE PULSE, PEA, CPR INITIATED. Initial Information Date: Nov 15, 2024 Time: 18:30 Location of Arrest: ICU ([place]) Arrest Witnessed: Yes CPR started initial time: 18:30 CPR started by whom: Hospital Staff Type of arrest: Cardiac, Adult, Witnessed Spontaneous Respirations: No Pulse Present: No Monitoring: ECG Crash Cart Opened and Supplies: Yes Airway Ventilation Breathing at Onset: Assisted Oxygen Delivery Method: Ambu-Bag Artificial Ventilation: Bag/Endo tube Circulation Circulation #1: Time: 18:30 Pulse Rate (adult): 0 Blood Pressure Systolic: 0 Blood Pressure Diastolic: 0 Temperature (Fahrenheit): 90.9 Circulation Comment: PEA, WARMING BLANKET IN PLACE SINCE ICU TRANSFER Circulation #2: Time: 18:32 Pulse Rate (adult): 0 Blood Pressure Systolic: 0 Blood Pressure Diastolic: 0 Circulation Comment: PEA Circulation #3: Time: 18:34 Pulse Rate (adult): 127 Blood Pressure Systolic: 185 Blood Pressure Diastolic: 96 Circulation Comment: ROSC Medications & Response Medications and Responses #1: Medication Time: 18:30 ADULT Medications Given ADULT: Epinephrine 1 mg Route of Administration: IV Medications and Responses #2: Medication Time: 18:31 ADULT Medications Given ADULT: Sodium Bacarbinate 50 meq Route of Administration: IV Medications and Responses #3: Medication Time: 18:32 ADULT Medications Given ADULT: Calcium Chloride 10 mL Route of Administration: IV Medications and Responses #4: Medication Time: 18:33 ADULT Medications Given ADULT: Epinephrine 1 mg Route of Administration: IV Nurses Notes K[place]on Coma Scale Eye Opening: None (1) Kameron Coma Scale Verbal: None (1) [place]ameron Coma Scale Motor: None (1) Pupil Reaction: Sluggish Bedside Blood Glucose: 11 (AT 1838,1 AMP D50 GIVEN) Nurses Notes - Comment: FAMILY AT BEDSIDE Time Code Ended Time Code Ended: 18:34 Post Arrest Status: Ventilated Outcome of code: Successful Family notified: Yes Attending called: Yes Code Team Present: DR HORNE-RESIDENT, BETTIE TREVIÑO RN, ALFRED HOTEL OR MOTEL MANAGER, DONOVAN RN , RANULFO RN, HILLARY RN, HAMMAD CCT, PERRY RT, MITCH RT, HARSH RN, AILYN RN, BIMAL RN, Date of Service: Nov 15, 2024 Billing Provider: ERNESTINE CENTENO MD Common Visit Codes: PROCEDURE ONLY Procedure Codes: [id number] CODE Alfred Lisa Nov 15, 2024 19:00 ERNESTINE CENTENO MD Nov 17, 2024 12:45
[2024-11-15] MEDS: NOREPINEPHRINE 8 MG/250ML KIT 250 ML IV SCH (19:26)
[2024-11-15] MEDS: VASOPRESSIN 20 UNITS in SODIUM CHL 0.9% 99 ML IV SCH (19:29)
[2024-11-15] MEDS ORDERED: DOPamine 1600MCG/ML D5W 250 ML IV SCH (19:30)
[2024-11-15] MEDS ORDERED: NOREPINEPHRINE BITARTRATE 32 MG in SODIUM CHL 0.9% 218 ML IV SCH (19:30)
[2024-11-15] MEDS ORDERED: PHENYLEPHRINE INJ 80 MG in SODIUM CHL 0.9% 242 ML IV SCH (19:30)
[2024-11-15] MEDS ORDERED: EPINEPHrine HCL INJECTION 16 MG in D5W 5% 234 ML IV SCH (19:30)
[2024-11-15] MEDS ORDERED: DEXTROSE 50% SYRINGE 0 ML IV ONE (19:44)
[2024-11-15] MEDS ORDERED: VANCOMYCIN 750MG KIT 100 ML IV SCH (20:00)
--- NOTE | 2024-11-15 20:20 | DVHPN2 ---
Progress Note - Dictate Date Seen: Nov 15, 2024 Medical Necessity Reason Pt with a Central, PICC or Fol: Yes The following are medically ne: Central Line Subjective Patient seen and examined at bedside. Sedated, intubated on mechanical ventilator. Overnight events reviewed. vital signs Vital Sign Date Time Temp Pulse Resp B/P (MAP) Pulse Ox O2 Delivery O2 Flow Rate FiO2 11/15/24 19:31 60/36 11/15/24 19:30 127 11/15/24 19:00 Ambu-Bag 11/15/24 18:45 25 94 11/15/24 15:00 100 11/15/24 12:27 2.0 Total Intake and Output 11/14/24 11/14/24 11/15/24 15:00 23:00 07:00 Intake Total 700 ml Output Total 50 ml 50 ml 72 ml Balance -50 ml -50 ml 628 ml medications Current Medications Medications Dose Ordered Sig/Minal Route Start Time Stop Time Status Last Admin Dose Admin Nitroglycerin 0.4 mg Q5MINP PRN SL 11/07/24 13:15 Morphine Sulfate 2 mg Q30M PRN IV 11/07/24 13:15 11/10/24 19:39 2 MG Acetaminophen 650 mg Q6HP PRN PO 11/08/24 15:00 Ipratropium Solano 0.5 mg Q6HR NEB 11/13/24 12:00 11/15/24 12:27 0.5 MG Enoxaparin Sodium 50 mg Q12HR SC 11/14/24 22:00 11/15/24 10:14 50 MG Lactulose 30 ml BIDPRN PRN PO 11/15/24 14:30 Polyethylene Glycol 17 gm DAILYPRN PRN PO 11/15/24 14:30 Piperacillin Sod/ Tazobactam Sod 100 ml @ 25 mls/hr Q8HR IV 11/15/24 22:00 Pantoprazole Sodium 40 mg DAILY IV 11/16/24 10:00 Propofol 100 ml @ 1.68 mls/hr Q24H IV 11/15/24 16:15 Midazolam HCl 50 ml @ 1 mls/hr Q24H IV 11/15/24 16:15 Fentanyl Citrate 250 ml @ 2.5 mls/hr Q24H IV 11/15/24 16:15 11/15/24 18:54 2.5 MLS/HR Vasopressin 20 units/Sodium Chloride 100 ml @ 9 mls/hr Q11H7M IV 11/15/24 16:15 11/15/24 19:29 9 MLS/HR Vancomycin HCl 0 ml @ 0 mls/hr UD IV 11/15/24 16:15 Vancomycin HCl 100 ml @ 100 mls/hr Q8H IV 11/15/24 20:00 Sodium Bicarbonate 150 ml/Dextrose 1,150 ml @ 100 mls/hr [id number] IV 11/15/24 18:00 11/15/24 18:15 100 MLS/HR Dopamine HCl/ Dextrose 250 ml @ 10.5 mls/hr [id number] IV 11/15/24 19:30 Phenylephrine HCl 80 mg/Sodium Chloride 250 ml @ 7.5 mls/hr Q24H IV 11/15/24 19:30 Norepinephrine Bitartrate 32 mg/ Sodium Chloride 250 ml @ 0.938 mls/ hr Q24H IV 11/15/24 19:30 Epinephrine HCl 16 mg/Dextrose 250 ml @ 1.875 mls/ hr Q24H IV 11/15/24 19:30 objective Gen.: Patient lying in bed in medical ICU. Sedated, intubated on mechanical ventilator. Head: Normocephalic, atraumatic. Eyes: PERRLA. Ears: Normal external anatomy. Throat: Endotracheal tube and orogastric tube in place. Neck: Supple, trachea midline. Chest: Transmitted breath sounds bilaterally. Decreased air entry bilaterally. No wheezing. Bibasilar crackles. Cardiovascular: Positive S1, positive S2. Regular rate and rhythm. Abdomen: Positive bowel sounds in all 4 quadrants. Soft, nontender, nondistended. : Salazar in place. Normal external genitalia. Rectal: Deferred. Skin: Warm, dry. Intact. Extremities: 2+ radial pulses bilaterally. No lower extremity edema. Neuro: Sedated. laboratory and microbiology Laboratory Tests 11/15/24 17:53 Test 11/15/24 17:53 Range/Units Serum Glucose 32 *L 74-106 mg/dL Assessment/Plan Impression: Acute hypoxic respiratory failure On mechanical ventilator Chronic obstructive pulmonary disease Hypertension Cachexia Nicotine dependence CAD, s/p PTCA Anemia Events: Note, patient sustained a fall today followed by emesis with suspected aspiration. Brief CPR was performed and pt was transferred to ICU She was subsequently intubated, placed on mechanical ventilator Placed on AC mode with RR 20, VT 450, PEEP 5, FiO2 100% S/p right IJ central line placement. Plan for therapeutic bronchoscopy. Pressors for hemodynamic support Titrate to keep mean arterial pressure greater than 65 mmHg. Pain control Avoid oversedation Continue antibiotics Continue bronchodilators Monitor hemoglobin TPN for nutritional support IV fluids with NS Protonix for GI prophylaxis S/p laparoscopic cholecystectomy Surgery recs appreciated Labs and imaging reviewed. Rest of plan as noted below. Plan: s/p intubation on mechanical ventilator. Titrate FIO2 to keep O2 saturation above 90%. VAP bundle. Daily ABG and CXR while intubated Sedate for ventilator synchrony Head of bed elevation Aspiration precautions Continue antibiotics Continue bronchodilators Pain control Avoid oversedation Continue TPN for nutritional support Monitor hemoglobin Monitor renal function. Monitor electrolytes. Supplement as necessary. Monitor ins and outs. GI/DVT prophylaxis. Prognosis: Poor given patient's multiple co-morbidities. Condition: Critical Rest of plan per hospitalist and other consultants. A total of 35 minutes of critical care time was spent reviewing the patient record, examining the patient, making a diagnostic and therapeutic plan, discussing this plan with the medical personnel, following up on diagnostic studies and following the patient for clinical stability excluding any and all procedures. At least 50% of this time was spent in direct, [id number] contact. Thank you Dr. Gould for allowing me to participate in this patient's care. Further recommendations will depend on the patient's clinical course. Please do not hesitate to contact me if you have any questions or concerns. This medical document was created using an electronic medical record system with [employer] dictation system. Although these documentations are being carefully reviewed, there may still be some phonetic and typographical changes. The errors are purely typographical, due to imperfection on the software program, and do not reflect any compromise in the patient's medical care. Dietary Evaluation Review Comments: 1. Current nutrition support of combined Clinimix plus TPN is providing a total 95 g Protein, 1160 kcal. supporting pt's needs at 130% pro. and 76% energy in Kcal. Pt weights 54.5 kg on bedscale this afternoon. noted a 5kg gain from yester. 2. Advance diet to regular texture as tolerated after ther gallblader surgery as medically feasible. 3. Quick smoking/tobacco use. Expected Outcomes/Goals: gradual weight gain, Plan discussed with: Other (RN) Critical Care Time(min): 35 TONY PINEDA MD Nov 15, 2024 20:20
[2024-11-15] MEDS ORDERED: SODIUM BICARB 8.4% 50Meq/50ml SYR INJ ONE (20:35)
[2024-11-15] MEDS ORDERED: EPINEPHrine HCL 1 MG/10 ML SYRG ONE (20:37)
[2024-11-15] MEDS ORDERED: DEXTROSE 50% SYRINGE 100 ML IV ONE (20:37)
[2024-11-15] MEDS ORDERED: ATROPINE SULF 1 MG/10ml SYR IM ONE (20:40)
[2024-11-15] MEDS ORDERED: PIPERACILLIN-TAZOB 3.375GM 100 ML IV SCH (22:00)
--- NOTE | 2024-11-15 23:41 | RESUS ---
PRABHJOT BLUE ASSESSSMENT History of Events History of Events: Pt heart rate dropped and then went asystole on monitor. No pulses palpable; CODE BLUE called Initial Information Date: Nov 15, 2024 Time: 20:28 Location of Arrest: ICU (Central) Arrest Witnessed: Yes CPR started initial time: 20:28 CPR started by whom: Hospital Staff Pre-Hospital Care: Pre-Code Care (inpatient) Type of arrest: Cardiac, Respiratory, Adult, Witnessed Spontaneous Respirations: No Pulse Present: No Monitoring: ECG, Pulse Oximetry, Telemetry Crash Cart Opened and Supplies: Yes Airway Ventilation Breathing at Onset: Assisted Oxygen Delivery Method: Mechanical Ventilator Time of first Assisted Ventila: 20:28 Artificial Ventilation: Bag/Endo tube Comments: Pt was previously intubated during prior code Circulation Circulation #1: Time: 20:28 Pulse Rate (adult): 0 Blood Pressure Systolic: 0 Blood Pressure Diastolic: 0 Temperature (Fahrenheit): 93.6 Circulation #2: Time: 20:30 Pulse Rate (adult): 0 Blood Pressure Systolic: 0 Blood Pressure Diastolic: 0 Circulation Comment: Asystole Circulation #3: Time: 20:32 Pulse Rate (adult): 0 Blood Pressure Systolic: 0 Blood Pressure Diastolic: 0 Circulation Comment: Asystole Circulation #4: Time: 20:34 Pulse Rate (adult): 0 Blood Pressure Systolic: 0 Blood Pressure Diastolic: 0 Circulation Comment: Asystole Circulation #5: Time: 20:37 Pulse Rate (adult): 0 Blood Pressure Systolic: 0 Blood Pressure Diastolic: 0 Circulation Comment: Asystole Circulation #6: Time: 20:39 Pulse Rate (adult): 0 Blood Pressure Systolic: 0 Blood Pressure Diastolic: 0 Circulation Comment: Asystole Circulation #7: Time: 20:41 Pulse Rate (adult): 0 Blood Pressure Systolic: 0 Blood Pressure Diastolic: 0 Circulation Comment: Asystole; TOD Medications & Response Medications and Responses #1: Medication Time: 20:28 ADULT Medications Given ADULT: Epinephrine 1 mg, Sodium Bacarbinate 50 meq Route of Administration: IV Heart Rate: 0 EKG Rhythm: Asystole Blood Pressure Systolic: 0 Blood Pressure Diastolic: 0 Respiratory Rate: 0 EKG Rhythm: Asystole Medications and Responses #2: Medication Time: 20:30 ADULT Medications Given ADULT: Calcium Chloride 10 mL Route of Administration: IV Heart Rate: 0 EKG Rhythm: Asystole Blood Pressure Systolic: 0 Blood Pressure Diastolic: 0 Respiratory Rate: 0 EKG Rhythm: Asystole Medications and Responses #3: Medication Time: 20:31 ADULT Medications Given ADULT: Epinephrine 1 mg Route of Administration: IV Heart Rate: 0 EKG Rhythm: Asystole Blood Pressure Systolic: 0 Blood Pressure Diastolic: 0 Respiratory Rate: 0 EKG Rhythm: Asystole Medications and Responses #4: Medication Time: 20:33 ADULT Medications Given ADULT: Sodium Bacarbinate 50 meq Route of Administration: IV Heart Rate: 0 EKG Rhythm: Asystole Blood Pressure Systolic: 0 Blood Pressure Diastolic: 0 Respiratory Rate: 0 EKG Rhythm: Asystole Medications and Responses #5: Medication Time: 20:34 ADULT Medications Given ADULT: Epinephrine 1 mg Route of Administration: IV Heart Rate: 0 EKG Rhythm: Asystole Blood Pressure Systolic: 0 Blood Pressure Diastolic: 0 Respiratory Rate: 0 EKG Rhythm: Asystole Medications and Responses #6: Medication Time: 20:37 ADULT Medications Given ADULT: Epinephrine 1 mg, Sodium Bacarbinate 50 meq Route of Administration: IV Heart Rate: 0 EKG Rhythm: Asystole Blood Pressure Systolic: 0 Blood Pressure Diastolic: 0 Respiratory Rate: 0 EKG Rhythm: Asystole Medications and Responses #7: Medication Time: 20:39 ADULT Medications Given ADULT: D50 (amp) Route of Administration: IV Heart Rate: 0 EKG Rhythm: Asystole Blood Pressure Systolic: 0 Blood Pressure Diastolic: 0 Respiratory Rate: 0 EKG Rhythm: Asystole Procedure - Central Venous Cat Central venous catheter site: R IJ Comment: Placed prior to code Procedure - Salazar Catheter Urinary Catheter Type/Location: Uretheral (Salazar) Comment: Placed prior to code Nurses Notes Kameron Coma Scale Eye Opening: None (1) Kameron Coma Scale Verbal: None (1) Kameron Coma Scale Motor: None (1) Pupil Reaction: Non Reactive Bedside Blood Glucose: 88 (AT 1838,1 AMP D50 GIVEN) Nurses Notes - Comment: Family at bedside; requested care to be stopped and withdrawn at 2040 Time Code Ended Time Code Ended: 20:41 Post Arrest Status: Outcome of code: Unsuccessful Patient pronounced by: MD Beck Time patient pronounced: 20:41 Family notified: Yes Attending called: Yes Code Team Present: MD Beck; MD Regino; MD Pamella; Maria Dolores Ramon RN - ICU charge; Beverly Calderon RN - Big Machine Consultant; Meche Barry RN; Gladys Dao RN; Harriet Russell RN; Liane Manzo RT; LUCY Brown Ashley Nov 15, 2024 23:41
[2024-11-16 00:53] LABS: Base Excess -14.6 mmol/L (-2.0-3.0)
--- NOTE | 2024-11-16 09:04 | DVHPN2 ---
Progress Note - Dictate Date Seen: Nov 15, 2024 Medical Necessity Reason Pt with a Central, PICC or Fol: Yes The following are medically ne: Central Line Subjective ACCELERATED WEIGHT LOSS DYSPHAGIA MELENA S/P COLONOSCOPY REPORTED TO BE NEGATIVE HX OF TOBACCO USE CACHEXIA COPD HTN HX OF LGI BLEED ISCHEMIC COLITIS HX OF CAD S/P PTCA STENT RCA PTCA OF PDA STILL HIGH SUSPICION FOR MALIGNANCY CACHEXIA DVT BLEEDING DIATHESIS ELIQUIS ?DIC vital signs Vital Sign Date Time Temp Pulse Resp B/P (MAP) Pulse Ox O2 Delivery O2 Flow Rate FiO2 11/15/24 23:41 0 0 Mechanical Ventilator 0 11/15/24 20:07 72/43 (53) 92 100 11/15/24 12:27 2.0 Total Intake and Output 11/15/24 11/15/24 11/16/24 15:00 23:00 07:00 Intake Total 955.50 ml Output Total 100 ml Balance -100 ml 955.50 ml laboratory and microbiology Laboratory Tests 11/15/24 17:53 Test 11/15/24 17:53 Range/Units Serum Glucose 32 *L 74-106 mg/dL Problem List ACCELERATED WEIGHT LOSS DYSPHAGIA MELENA S/P COLONOSCOPY REPORTED TO BE NEGATIVE HX OF TOBACCO USE CACHEXIA COPD HTN HX OF LGI BLEED ISCHEMIC COLITIS HX OF CAD S/P PTCA STENT RCA PTCA OF PDA DVT HYPERCOAGULABLE STATE COAGULOPATHY/ DIC METABOLIC ACIDOSIS DELTA GAP OF 8 Assessment/Plan MRI WITH CONTRAST GALLBLADDER SLUDGE SURGICAL CONSULT PT MAY PROCEED WITH SURGERY ASA II NEEDS CHOLECYSTECTOMY S/P LAP ESTHELA INITIALLY WITH POST OP BLEEDING STBALE S/P 1 UNIT PRBC H/H/ STABLE NO FURTHER BLEEDING NOW STABLE PT STARTED ON CLONIDINE FOR HTN BP STABLE HYPONATREMIA LEUKOCYTOSIS START ABX CHANGE IV TO NS SIGNIFICANT DROP IN H/H LEUKOCYTOSIS RESOLVED ON ABX INHALER THERAPY SINCE PT WHEEZING LASIX X 1 HYPONATREMIA STABLE WITH CHANGE IN IV FLUID ILEUS KUB CT ABD PELVIS CT CHEST STILL WITH HIGH INDEX OF SUSPICION FOR MALIGNANCY ESPECIALLY WITH DVT/ HYPERCOAGULABLE STATE DESPITE ON ELIQUIS POOR PROGNOSIS Dietary Evaluation Review Comments: 1. Current nutrition support of combined Clinimix plus TPN is providing a total 95 g Protein, 1160 kcal. supporting pt's needs at 130% pro. and 76% energy in Kcal. Pt weights 54.5 kg on bedscale this afternoon. noted a 5kg gain from yester. 2. Advance diet to regular texture as tolerated after ther gallblader surgery as medically feasible. 3. Quick smoking/tobacco use. Expected Outcomes/Goals: gradual weight gain, Plan discussed with: Patient, Daughter Critical Care Time(min): 35 OFELIA OCHOA MD Nov 16, 2024 09:04
[2024-11-16] MEDS ORDERED: PANTOPRAZOLE 40 MG/10 ML VIAL INJ IV SCH (10:00)
[2024-11-16] MEDS ORDERED: dilTIAZem 120MG ER CAP PO SCH (10:00)
[2024-11-16] MEDS ORDERED: LACTULOSE 20Gm/30ML SOLN PO SCH (10:00)
== END 2024-11-15 20:41 | DRG 417 ==
LOC: ER 11:40 → OVERFLOW 13:06 → TELE-EAST 21:44 → ICU WEST 11-10 14:39 → TELE-WESTW 11-11 15:27 → WEST WING 11-14 06:18 → ICU WEST 11-15 15:26
PROVIDERS: ADMIT Internal Medicine; ATTEND Internal Medicine
PROC: 30233N1 Transfusion of Nonautologous Red Blood Cells into Peripheral Vein, Percutaneous Approach (ICD-10-PCS; 2024-11-10)
PROC: 02HV33Z Insertion of Infusion Device into Superior Vena Cava, Percutaneous Approach (ICD-10-PCS; 2024-11-10)
PROC: B548ZZA Ultrasonography of Superior Vena Cava, Guidance (ICD-10-PCS; 2024-11-10)
PROC: 0FT44ZZ Resection of Gallbladder, Percutaneous Endoscopic Approach (ICD-10-PCS; principal; 2024-11-10 09:06)
PROC: 0BH17EZ Insertion of Endotracheal Airway into Trachea, Via Natural or Artificial Opening (ICD-10-PCS; 2024-11-15)
PROC: 5A1935Z Respiratory Ventilation, Less than 24 Consecutive Hours (ICD-10-PCS; 2024-11-15)
PROC: 02HV33Z Insertion of Infusion Device into Superior Vena Cava, Percutaneous Approach (ICD-10-PCS; 2024-11-15)
PROC: B548ZZA Ultrasonography of Superior Vena Cava, Guidance (ICD-10-PCS; 2024-11-15)
PROC: 5A12012 Performance of Cardiac Output, Single, Manual (ICD-10-PCS; 2024-11-15)
DX: K80.10 Calculus of gallbladder with chronic cholecystitis without obstruction (principal); J96.01 Acute respiratory failure with hypoxia; K55.9 Vascular disorder of intestine, unspecified; Z68.1 Body mass index [BMI] 19.9 or less, adult; R64 Cachexia; E87.1 Hypo-osmolality and hyponatremia; D68.59 Other primary thrombophilia; K56.7 Ileus, unspecified; E87.20 Acidosis, unspecified; J84.9 Interstitial pulmonary disease, unspecified; I46.9 Cardiac arrest, cause unspecified; R13.10 Dysphagia, unspecified; J44.9 Chronic obstructive pulmonary disease, unspecified; I25.10 Atherosclerotic heart disease of native coronary artery without angina pectoris; I10 Essential (primary) hypertension; E87.6 Hypokalemia; F17.210 Nicotine dependence, cigarettes, uncomplicated; K82.8 Other specified diseases of gallbladder; D64.9 Anemia, unspecified; I25.2 Old myocardial infarction; Z98.61 Coronary angioplasty status; Z98.891 History of uterine scar from previous surgery; Z79.899 Other long term (current) drug therapy; Z87.11 Personal history of peptic ulcer disease
CPT/HCPCS: 36415; 36600; 71045; 71046; 72195; 74018; 74181; 80048; 80053; 81001; 82607; 82805; 82962; 83605; 83735; 83880; 84100; 84443; 84478; 84484; 85007; 85014; 85018; 85025; 85027; 85379; 85610; 85730; 86850; 86900; 86901; 86920; 86922; 87040; 87070; 87077; 87081; 87086; 87186; 87205; 93005; 93971; 94002; 94640; 97110; 97116; 97163; 97530; 99291; G0378; J0131; J0171; J1100; J1815; J1885; J2003; J2405; J2470; J2543; J2704; J7060; J7131